=== PATIENT | female | born 1960 | race Caucasian/White ===

== ENCOUNTER → 2023-10-29 06:46 | Outpatient (REF) | payer BC, SELFPAY | LOC: HWRAD 06:46 | PROVIDERS: ATTENDING PHYSICIAN Internal Medicine Rheumatology; FAMILY PHYSICIAN Family Medicine | DX: M25.552 Pain in left hip (principal) | CPT/HCPCS: 73502 ==

== ENCOUNTER 2023-11-18 16:00 | Outpatient (RCR) | payer BC, SELFPAY | END 2023-11-18 23:59 | disposition home or self-care (01) | LOC: RPT 16:00 | PROVIDERS: ATTENDING PHYSICIAN Internal Medicine Rheumatology; FAMILY PHYSICIAN Family Medicine | DX: M25.552 Pain in left hip (principal); Z73.6 Limitation of activities due to disability | CPT/HCPCS: 97010; 97110; 97163 ==

== ENCOUNTER → 2023-11-23 06:45 | Outpatient (REF) | payer BC, SELFPAY ==
[2023-11-23 09:29] LABS: ALT (SGPT) 31 U/L (0-35); AST (SGOT) 27 U/L (14-36); Albumin 4.4 g/dl (3.5-5.0); Alkaline Phosphatase 131 U/L (38-126); Blood Urea Nitrogen 17 mg/dl (7-17); Calcium 9.7 mg/dl (8.4-10.2); Carbon Dioxide 25 mmol/L (22-30); Chloride 106 mmol/L (98-107); Glucose 142 mg/dl (70-99); HDL Cholesterol 44 mg/dl; Iron 117 ug/dl (37-170); LDL Cholesterol, Calculated 83 mg/dl; Potassium 4.1 mmol/L (3.5-5.1); Sodium 139 mmol/L (135-145); Total Bilirubin 0.8 mg/dl (0.2-1.3); Total Cholesterol 179 mg/dl (50-199); Triglyceride 261 mg/dl (10-149); Very Low Density Lipoprotein 52 mg/dl (0-30); eGFR > 60.00
[2023-11-23 09:38] LABS: Percent Saturation 38 % (20-50); Total Iron Binding Capacity 307 ug/dl (265-497)
[2023-11-23 09:45] LABS: Vitamin D, 25-OH*** 40.4 ng/mL (30-80)
[2023-11-23 09:59] LABS: TSH Reflex To Free T4 1.53 uIU/ml (0.47-4.68)
[2023-11-23 11:52] LABS: Glycohemoglobin (HgbA1c) 6.2 % (4.0-5.6)
== END ==
LOC: HWLAB 06:45
PROVIDERS: ATTENDING PHYSICIAN Internal Medicine Endocrinology, Diabetes & Metabolism; FAMILY PHYSICIAN Nurse Practitioner Adult Health
DX: L65.9 Nonscarring hair loss, unspecified (principal); E78.5 Hyperlipidemia, unspecified; E55.9 Vitamin D deficiency, unspecified; E66.9 Obesity, unspecified; E11.9 Type 2 diabetes mellitus without complications; Z79.4 Long term (current) use of insulin; E78.2 Mixed hyperlipidemia
CPT/HCPCS: 36415; 80053; 80061; 82306; 82728; 83036; 83540; 83550; 84443

== ENCOUNTER → 2023-11-27 06:21 | Outpatient (REF) | payer BC, SELFPAY | LOC: MRI 3T 06:21 | PROVIDERS: ATTENDING PHYSICIAN Orthopaedic Surgery; FAMILY PHYSICIAN Family Medicine; REFERRING PHYSICIAN Internal Medicine Rheumatology | DX: M25.552 Pain in left hip (principal); M54.16 Radiculopathy, lumbar region | CPT/HCPCS: 72148 ==

== ENCOUNTER 2023-11-29 06:17 | Day surgery (SDC) | payer BC, SELFPAY ==
[2023-11-29 08:45] VITALS: BMI 28.4
[2023-11-29 08:55] VITALS: BP 115/75
[2023-11-29 09:08] VITALS: BMI 28.4
[2023-11-29] MEDS: ALCAINE 0.5% EYE DROPS 2 DROP OPHTH (09:10)
[2023-11-29] MEDS: PRED FORTE 1% EYE DROPS 1 DROP OPHTH (09:12)
[2023-11-29] MEDS: POLYTRIM OPHTHALMIC SOLUTION 1 DROP OPHTH (09:13)
[2023-11-29] MEDS: NEO-SYNEPHRINE 2.5% OPH SOL. 1 DROP OPHTH (09:14)
[2023-11-29] MEDS: MYDRIACYL 1 DROP OPHTH (09:15)
[2023-11-29] MEDS: CYCLOGYL 1% EYE DROPS 1 DROP OPHTH (09:15)
[2023-11-29] MEDS: ACUVAIL 1 DROPS OPHTH (09:16)
[2023-11-29] MEDS: NORMOSOL-R 1000 IV (09:20)
[2023-11-29 09:24] LABS: Glucose - Point of Care 129 mg/dl (70-99)
[2023-11-29] MEDS: AKTEN OPHTHALMIC GEL 1 ML OPHTH (10:30)
[2023-11-29 11:20] VITALS: BP 102/70
--- NOTE | 2023-11-29 12:11 | PTCARENOTE ---
See incident report. Patient stated after arriving back to [facility] that Dr. Vann stated to her 'Their was an issue with the lens and that their was something on it and that she may have to come back and have it replaced if their is an issue with it.'
Patient was upset and speaking to her at the bedside about situation. Incident report filled out.
== END 2023-11-29 12:05 | disposition home or self-care (01) ==
LOC: SDS 06:17
PROVIDERS: ATTENDING PHYSICIAN Ophthalmology
DX: H25.811 Combined forms of age-related cataract, right eye (principal)
CPT/HCPCS: 66984; 82962

== ENCOUNTER 2023-12-09 16:17 | Outpatient (RCR) | payer BC, SELFPAY | END 2023-12-09 23:59 | disposition home or self-care (01) | LOC: RPT 16:17 | PROVIDERS: ATTENDING PHYSICIAN Internal Medicine Rheumatology; FAMILY PHYSICIAN Family Medicine | DX: M25.552 Pain in left hip (principal); Z73.6 Limitation of activities due to disability; R26.2 Difficulty in walking, not elsewhere classified; M62.81 Muscle weakness (generalized); R26.89 Other abnormalities of gait and mobility; M45.9 Ankylosing spondylitis of unspecified sites in spine | CPT/HCPCS: 97010; 97110; 97112 ==

== ENCOUNTER 2023-12-13 06:37 | Day surgery (SDC) | payer BC, SELFPAY ==
[2023-12-13] MEDS: ALCAINE 0.5% EYE DROPS 2 DROP OPHTH (08:31)
[2023-12-13] MEDS: PRED FORTE 1% EYE DROPS 1 DROP OPHTH (08:32)
[2023-12-13] MEDS: MYDRIACYL 1 DROP OPHTH (08:32)
[2023-12-13] MEDS: POLYTRIM OPHTHALMIC SOLUTION 1 DROP OPHTH (08:33)
[2023-12-13] MEDS: CYCLOGYL 1% EYE DROPS 1 DROP OPHTH (08:34)
[2023-12-13] MEDS: NEO-SYNEPHRINE 2.5% OPH SOL. 1 DROP OPHTH (08:34)
[2023-12-13] MEDS: ACUVAIL 3 DROPS OPHTH (08:35)
[2023-12-13] MEDS: AKTEN OPHTHALMIC GEL 1 ML OPHTH (08:35)
[2023-12-13 08:36] VITALS: BMI 28.4
[2023-12-13] MEDS: NORMOSOL-R 1000 IV (08:36)
[2023-12-13 08:37] VITALS: BMI 28.4
[2023-12-13 08:38] VITALS: BP 110/74
[2023-12-13 08:50] LABS: Glucose - Point of Care 106 mg/dl (70-99)
[2023-12-13 10:00] VITALS: BP 101/75
[2023-12-13 10:05] LABS: Glucose - Point of Care 106 mg/dl (70-99)
[2023-12-13 10:15] VITALS: BP 101/68
[2023-12-13 10:30] VITALS: BP 95/65
[2023-12-13 10:40] VITALS: BP 100/67
== END 2023-12-13 10:50 | disposition home or self-care (01) ==
LOC: SDS 06:37
PROVIDERS: ATTENDING PHYSICIAN Ophthalmology
DX: T85.29XA Other mechanical complication of intraocular lens, initial encounter (principal); Y83.1 Surgical operation with implant of artificial internal device as the cause of abnormal reaction of the patient, or of later complication, without mention of misadventure at the time of the procedure; H53.8 Other visual disturbances
CPT/HCPCS: 66986; 82962

== ENCOUNTER 2023-12-23 16:07 | Outpatient (RCR) | payer BC, SELFPAY | END 2023-12-24 09:01 | disposition home or self-care (01) | LOC: RPT 16:07 | PROVIDERS: ATTENDING PHYSICIAN Internal Medicine Rheumatology; FAMILY PHYSICIAN Family Medicine | DX: M25.552 Pain in left hip (principal); Z73.6 Limitation of activities due to disability; R26.2 Difficulty in walking, not elsewhere classified; M62.81 Muscle weakness (generalized) | CPT/HCPCS: 97010; 97110; 97112 ==

== ENCOUNTER → 2024-05-04 06:27 | Outpatient (REF) | payer BC, SELFPAY ==
[2024-05-04 10:12] LABS: ALT (SGPT) 33 U/L (0-35); AST (SGOT) 28 U/L (14-36); Albumin 4.1 g/dl (3.5-5.0); Alkaline Phosphatase 153 U/L (38-126); Blood Urea Nitrogen 15 mg/dl (7-17); Calcium 9.8 mg/dl (8.4-10.2); Carbon Dioxide 26 mmol/L (22-30); Chloride 106 mmol/L (98-107); Glucose 140 mg/dl (70-99); HDL Cholesterol 44 mg/dl; LDL Cholesterol, Calculated 106 mg/dl; Sodium 139 mmol/L (135-145); Total Bilirubin 0.8 mg/dl (0.2-1.3); Total Cholesterol 194 mg/dl (50-199); Total Protein 6.6 g/dl (6.3-8.2); Triglyceride 222 mg/dl (10-149); Very Low Density Lipoprotein 44 mg/dl (0-30); eGFR > 60.00
[2024-05-04 11:30] LABS: % Eosinophils 1.8 % (0-6); % Immature Granulocytes 0.2 % (0-0.5); % Lymphocytes 39.2 % (20.5-51.1); % Monocytes 9.8 % (1.7-9.3); Absolute Basophils 0.1 10^3/uL (0-0.2); Absolute Eosinophils 0.1 10^3/uL (0-0.7); Absolute Lymphocytes 2.4 10^3/uL (1.2-3.4); Absolute Monocytes 0.6 10^3/uL (0.1-0.6); Hematocrit 41.7 % (37.0-47.0); Hemoglobin 14.6 g/dL (12.0-16.0); Mean Corpuscular Hgb 31.8 pg (27.0-31.0); Mean Corpuscular Volume 90.8 fL (81.0-99.0); Mean Platelet Volume 9.1 fL (7.4-10.4); Nucleated Red Blood Cells % 0 %; Platelet Count 280 10^3/uL (130-400); Red Blood Cell Count 4.59 10^6/uL (4.20-5.40); Red Cell Dist. Width 12.8 % (11.5-14.5); White Blood Cell Count 6.2 10^3/uL (4.8-10.8)
[2024-05-04 12:23] LABS: Glycohemoglobin (HgbA1c) 6.5 % (4.0-5.6)
== END ==
LOC: HWLAB 06:27
PROVIDERS: ATTENDING PHYSICIAN Family Medicine
DX: E11.69 Type 2 diabetes mellitus with other specified complication (principal); E78.2 Mixed hyperlipidemia; M45.7 Ankylosing spondylitis of lumbosacral region
CPT/HCPCS: 36415; 80053; 80061; 83036; 85025

== ENCOUNTER → 2024-05-05 16:05 | Outpatient (REF) | payer BC, SELFPAY | LOC: MRI 3T 16:05 | PROVIDERS: ATTENDING PHYSICIAN Orthopaedic Surgery; FAMILY PHYSICIAN Family Medicine | DX: M25.552 Pain in left hip (principal) | CPT/HCPCS: 73721 ==

== ENCOUNTER → 2024-05-11 06:32 | Outpatient (REF) | payer BC, SELFPAY ==
[2024-05-11 10:32] LABS: TSH Reflex To Free T4 1.97 uIU/ml (0.47-4.68)
== END ==
LOC: HWLAB 06:32
PROVIDERS: ATTENDING PHYSICIAN Family Medicine
DX: Z13.29 Encounter for screening for other suspected endocrine disorder (principal); R19.7 Diarrhea, unspecified
CPT/HCPCS: 36415; 83993; 84443; 87045; 87046; 87324; 87427; 87449; 89055

== ENCOUNTER → 2024-08-15 06:12 | Outpatient (REF) | payer BC, SELFPAY | LOC: HWRAD 06:12 | PROVIDERS: ATTENDING PHYSICIAN Internal Medicine Gastroenterology; FAMILY PHYSICIAN Family Medicine | DX: R19.4 Change in bowel habit (principal); R74.8 Abnormal levels of other serum enzymes | CPT/HCPCS: 74018; 76700 ==

== ENCOUNTER → 2024-08-30 06:27 | Outpatient (REF) | payer BC, SELFPAY ==
[2024-08-30 10:53] LABS: Alkaline Phosphatase 123 U/L (38-126); GGTP 35 U/L (12-43)
[2024-08-30 15:20] LABS: tTG IgG Antibody 11.9 EU/ml (0-19)
[2024-08-31 05:30] LABS: IgA 264 mg/dl (70-400)
[2024-09-01 14:01] LABS: Alk Phos Bone Specific Results 16.8 ug/L
[2024-09-01 23:47] LABS: Endomysial IgA Antibody Titer <1:10 (<1:10)
== END ==
LOC: HWLAB 06:27
PROVIDERS: ATTENDING PHYSICIAN Internal Medicine Gastroenterology; FAMILY PHYSICIAN Family Medicine
DX: R74.8 Abnormal levels of other serum enzymes (principal); R19.4 Change in bowel habit
CPT/HCPCS: 36415; 82784; 82977; 83516; 83915; 84075; 86231

== ENCOUNTER → 2024-08-31 06:36 | Outpatient (REF) | payer BC, SELFPAY ==
[2024-09-02 22:51] LABS: Fat, Fecal - Neutral Normal (Normal); Fat, Fecal - Split Normal (Normal)
== END ==
LOC: HWLAB 06:36
PROVIDERS: ATTENDING PHYSICIAN Internal Medicine Gastroenterology; FAMILY PHYSICIAN Family Medicine
DX: R19.4 Change in bowel habit (principal)
CPT/HCPCS: 82653; 82705; 83993; 89055

== ENCOUNTER → 2024-09-22 06:31 | Outpatient (REF) | payer BC, SELFPAY ==
[2024-09-22 09:33] LABS: % Basophils 0.6 % (0-2); % Eosinophils 0.8 % (0-6); % Immature Granulocytes 0.3 % (0-0.5); % Lymphocytes 27.4 % (20.5-51.1); % Monocytes 10.7 % (1.7-9.3); % Neutrophils 60.2 % (42.2-75.2); Absolute Basophils 0.1 10^3/uL (0-0.2); Absolute Eosinophils 0.1 10^3/uL (0-0.7); Absolute Lymphocytes 2.1 10^3/uL (1.2-3.4); Absolute Monocytes 0.8 10^3/uL (0.1-0.6); Absolute Neutrophils 4.7 10^3/uL (1.4-6.5); Hematocrit 42.9 % (37.0-47.0); Hemoglobin 14.3 g/dL (12.0-16.0); Mean Corp Hgb Conc. 33.3 g/dL (33.0-37.0); Mean Corpuscular Hgb 31.4 pg (27.0-31.0); Mean Corpuscular Volume 94.1 fL (81.0-99.0); Mean Platelet Volume 8.8 fL (7.4-10.4); Nucleated Red Blood Cells % 0 %; Platelet Count 255 10^3/uL (130-400); Red Blood Cell Count 4.56 10^6/uL (4.20-5.40); White Blood Cell Count 7.8 10^3/uL (4.8-10.8)
[2024-09-22 11:05] LABS: ALT (SGPT) 30 U/L (0-35); AST (SGOT) 24 U/L (14-36); Albumin 4.3 g/dl (3.5-5.0); Alkaline Phosphatase 189 U/L (38-126); Blood Urea Nitrogen 11 mg/dl (7-17); Calcium 9.4 mg/dl (8.4-10.2); Carbon Dioxide 23 mmol/L (22-30); Chloride 105 mmol/L (98-107); Glucose 145 mg/dl (70-99); HDL Cholesterol 45 mg/dl; LDL Cholesterol, Calculated 82 mg/dl; Potassium 4.3 mmol/L (3.5-5.1); Sodium 139 mmol/L (135-145); Total Bilirubin 0.6 mg/dl (0.2-1.3); Total Cholesterol 165 mg/dl (50-199); Total Protein 6.7 g/dl (6.3-8.2); Triglyceride 190 mg/dl (10-149); Very Low Density Lipoprotein 38 mg/dl (0-30); eGFR > 60.00
[2024-09-22 11:32] LABS: Glycohemoglobin (HgbA1c) 5.9 % (4.0-5.6)
[2024-09-22 11:37] LABS: TSH Reflex To Free T4 2.71 uIU/ml (0.47-4.68)
[2024-09-22 11:49] LABS: Erythrocyte Sed Rate 10 mm/hour (0-20)
== END ==
LOC: HWLAB 06:31
PROVIDERS: ATTENDING PHYSICIAN Internal Medicine Endocrinology, Diabetes & Metabolism; FAMILY PHYSICIAN Family Medicine; REFERRING PHYSICIAN Internal Medicine Rheumatology
DX: M06.4 Inflammatory polyarthropathy (principal); E78.5 Hyperlipidemia, unspecified; E11.69 Type 2 diabetes mellitus with other specified complication; E78.2 Mixed hyperlipidemia; M45.7 Ankylosing spondylitis of lumbosacral region
CPT/HCPCS: 36415; 80053; 80061; 83036; 84443; 85025; 85652; 86140

== ENCOUNTER → 2024-12-11 17:46 | Outpatient (REF) | payer BC, SELFPAY | LOC: WDC 17:46 | PROVIDERS: ATTENDING PHYSICIAN Obstetrics & Gynecology Gynecology | DX: Z12.31 Encounter for screening mammogram for malignant neoplasm of breast (principal) | CPT/HCPCS: 77063; 77067 ==

== ENCOUNTER → 2024-12-29 08:01 | Outpatient (REF) | payer BC, SELFPAY ==
[2024-12-29 13:07] LABS: ALT (SGPT) 34 U/L (0-35); AST (SGOT) 29 U/L (14-36); Albumin 4.8 g/dl (3.5-5.0); Alkaline Phosphatase 167 U/L (38-126); Blood Urea Nitrogen 12 mg/dl (7-17); Calcium 9.9 mg/dl (8.4-10.2); Carbon Dioxide 22 mmol/L (22-30); Chloride 109 mmol/L (98-107); Glucose 145 mg/dl (70-99); HDL Cholesterol 52 mg/dl; LDL Cholesterol, Calculated 93 mg/dl; Potassium 4.6 mmol/L (3.5-5.1); Sodium 143 mmol/L (135-145); Total Bilirubin 0.8 mg/dl (0.2-1.3); Total Cholesterol 177 mg/dl (50-199); Total Protein 7.3 g/dl (6.3-8.2); Triglyceride 162 mg/dl (10-149); Very Low Density Lipoprotein 32 mg/dl (0-30); eGFR > 60.00
[2024-12-29 14:19] LABS: Glycohemoglobin (HgbA1c) 5.9 % (4.0-5.6)
== END ==
LOC: HWRAD 08:01
PROVIDERS: ATTENDING PHYSICIAN Psychiatry & Neurology Neurology; FAMILY PHYSICIAN Family Medicine; REFERRING PHYSICIAN Internal Medicine Endocrinology, Diabetes & Metabolism
DX: R10.30 Lower abdominal pain, unspecified (principal); E04.2 Nontoxic multinodular goiter; E78.5 Hyperlipidemia, unspecified
CPT/HCPCS: 36415; 76882; 80053; 80061; 83036

== ENCOUNTER 2025-02-23 08:53 | Emergency (ER) | payer BC, SELFPAY ==
[2025-02-23 08:55] VITALS: BP 142/78
--- NOTE | 2025-02-23 09:32 | ED.GENMED ---
History of Present Illness
General
Chief Complaint: Musculo-Skeletal Complaint
Source: patient
Exam Limitations: none
Time Seen by Provider: 02/23/25 09:16
History of Present Illness
History of Present Illness:
See MDM
Past History
Past History
ED Past Medical History: Other (Ankylosing spondylitis)
ED Past Surgical History: None
Social History
Tobacco: Non-smoker
Alcohol: None
Phy Exam
Physical Exam
Physical Exam:
See MDM
Course
Orders/Labs/Results
Orders:
Orders
02/23/25 09:30
CT Abd/pelvis W Iv Cont Urgent
Comment:
Reason For Exam: R groin pain
02/23/25 09:38
Complete Blood Count/With Diff Urgent
Comprehensive Metabolic Panel Urgent
02/23/25 10:48
0.9% Sodium Chloride 1000 ml [Nss] 1,000 ml IV BOLUS
Abnormal Lab Results
02/23/25
09:38
MCH 31.9 H pg
(27.0-31.0)
Chloride 111 H mmol/L
(98-107)
Creatinine 0.5 L mg/dL
(0.6-1.0)
Glucose 122 H mg/dl
(70-99)
ALT 44 H U/L
(0-35)
Alkaline Phosphatase 130 H U/L
(38-126)
02/23/25 09:38
02/23/25 09:38
Vital Signs
Initial and Last Documented VS:
Initial Vital Signs
Temp Pulse Resp BP Pulse Ox
98.0 F 110 16 142/78 98
02/23/25 08:55 02/23/25 08:55 02/23/25 08:55 02/23/25 08:55 02/23/25 08:55
Last Documented Vital Signs
Temp Pulse Resp BP Pulse Ox
98.0 F 110 16 142/78 98
02/23/25 08:55 02/23/25 08:55 02/23/25 08:55 02/23/25 08:55 02/23/25 08:55
MDM/Problems Addressed
Differential Diagnosis Includes:
HPI and MDM Narrative:
64-year-old female presenting with worsening right groin pain. Patient has been dealing with back and groin pain for several months. He has received outpatient lumbar MRIs which do confirm the lower lumbar issues. She has since followed up with
pain management. She is on Vicodin and tramadol and symptoms are not improving. Pain management set her in for further imaging to evaluate any intra-abdominal process. Patient points to her right lower quadrant and her inguinal canal. Symptoms
are made worse when she hip flexes. On my exam, I cannot necessarily reproduce the symptoms. She has a negative straight leg raise.
She has no tenderness to palpation of the quadricep. No pain with involvement of the abductor muscle. The leg is otherwise neurovascularly intact.
However, patient does appear to be extremely comfortable when she sits upright. She localizes the pain from her right inguinal canal going straight down her thigh to her patella. This is not necessarily follow a specific dermatome.
I do question whether this could be related to her ankylosing spondylitis. Regardless, will obtain CT abdomen/pelvis looking for any other intra-abdominal processes
Physical exam
General: Well appearing and non-toxic
HEENT: protecting airway
Neck: appears supple
CV: No evidence of cyanosis
Resp: No accessory muscle use
Abd: Non-distended. Soft and nontender
Extremities: No deformities. No palpable mass to right inguinal canal. Distal extremity neurovascular intact
Neuro: alert
Psych: Normal affect
Skin: Intact
Problems Addressed including Acute and Chronic Conditions affecting care:
1. Abdominal and groin pain
Acuity: acute
Prognosis: stable
Details: Unsure if this is related to ankylosing spondylitis. It is worse with spine flexion. Will obtain CT to look for any other pathology
Updates
On reassessment, patient remains well-appearing and nontoxic. While laying flat, she has no pain. I did have the patient hip flex. When she is able to grab her right thigh and bring it to her chest, she has no pain. However, when she goes into
the same position while leaning her back forward, the pain is experienced. This raises suspicion for this being back related rather than pelvic and thigh related
CT negative for acute pathology. She was given a printout of the report. Discussed follow-up with spinal surgery at this point.
Differential Diagnosis (but not limited to): Ankylosing spondylitis, femoral hernia, appendicitis, quadricep tear
Testing considered: Urinalysis but she denies symptoms
Drug therapy (if applicable): OTC meds, please see d/c instruction regarding Rx drugs
Amount and/or Complexity of Data Reviewed
Clinical info obtained from: Patient
External data reviewed: I evaluated recent MRI reports at bedside
Labs I independently reviewed (but not limited to): White blood cell count normal
Radiology: The CT scan was personally and independently reviewed. In addition, official CT report reviewed.
Pulse Ox: not hypoxic
EKG independently reviewed: N/A
Market Researcher: N/A
Critical Care: N/A
Risk of Complication:
Social Determinants of health: Good social support
Discussed with other providers: N/A
Escalation of Care includes Admit/Obs: After being observed in the Emergency Department, pt stable for discharge.
Occasional wrong word or 'sound a like' substitutions may have occurred due to the inherent limitations of voice recognition software. Read the chart carefully and recognize, using context, where substitutions have occurred.
*Critical Care Note
Total Time (30-74mins, 75-104mins- exclusive of procedures): Not Applicable
ED Attending Note
-
Portions of this chart may have been created with voice recognition software.� Occasional wrong word or��sound alike� substitutions may have occurred due to the inherent limitations of voice recognition software.
Discharge Plan
Departure
Patient Disposition: Home (Routine Discharge)
Date of Disposition: 02/23/25
Time of Disposition: 12:55
Patient with high blood pressure during this ER visit?: No
Discharge Problem:
Lumbar radiculopathy
Prescriptions:
New
prednisone 10 mg tablet
See Rx Instructions .ROUTE .COMPLEX Qty: 45 0RF
Rx Instructions:
5 tabs day 1-3, 4 tabs day 4-6, 3 tabs day 7-9, 2 tabs day 10-12, 1 tab day 13-15
tramadol 100 mg tablet
100 mg PO BID PRN (Reason: Pain) 7 Days Qty: 14 0RF
No Action
atorvastatin 10 MG tablet
10 mg PO DAILY@1700
colestipol [Colestid] 1 GM tablet
1 g PO PRN PRN (Reason: diarrhea)
Eliquis 2.5 MG tablet
2.5 mg PO BID
Jardiance 10 MG tablet
10 mg PO DAILY
ascorbic acid (vitamin C) [Vitamin C] 500 MG tablet
500 mg PO DAILY
modafinil 100 mg Tablet
100 mg PO BID
duloxetine 20 mg Capsule,Delayed Release(Dr/Ec)
20 mg PO BID
Humira Pen 40 mg/0.8 mL Pen Injector Kit
40 mg SC .EVERY 2 WEEKS
insulin degludec [Tresiba U-100 Insulin] 100 unit/mL Solution
12 unit SC HS
Patient Comments:
pt took 10 Units.
Mounjaro 7.5 mg/0.5 mL Pen Injector
7.5 mg SC QWEEK
multivitamin Tablet
1 tab PO DAILY
cholecalciferol (vitamin D3) [Vitamin D3] 125 mcg (5,000 unit) Tablet
125 mcg PO MOTUWETHFR
cholecalciferol (vitamin D3) [Vitamin D3] 125 mcg (5,000 unit) Tablet
250 mcg PO SUSA
Fish Oil
1 cap PO BID
Referrals:
Gurjit Lepe Jr., DO [Family Provider, Internal Medicine]
Rojas Gentile MD [Active, Orthopedics]
Activity Restrictions/Additional Instructions:
Please return for any worsening symptoms.
You may return at any time if you have further concerns.
Please follow up with your doctor at the first available appointment, preferably this week.
I am refilling your tramadol prescription. I wrote for 100 mg tablets. Prior records indicate that you are taking 50 mg tablets. Make sure you are cutting the 100 mg tablets.
Interventions
Interventions:
*Risk Screen - Suicide Last Done: 02/23/25 08:55
*General Assessment Last Done: 02/23/25 09:25
*Neglect/Abuse Screening Last Done: 02/23/25 08:55
*ED- Fall Risk Assessment Last Done: 02/23/25 09:25
*ED COVID-19 Vaccine History Last Done: 02/23/25 09:25
ED-Musculoskeletal Assessment Last Done: 02/23/25 09:24
Discharge Date and Time
Print Language: ESTONIAN
[2025-02-23 09:57] LABS: % Basophils 0.6 % (0-2); % Eosinophils 0.3 % (0-6); % Immature Granulocytes 0.3 % (0-0.5); % Lymphocytes 29.3 % (20.5-51.1); % Monocytes 7.4 % (1.7-9.3); % Neutrophils 62.1 % (42.2-75.2); Absolute Lymphocytes 2.1 10^3/uL (1.2-3.4); Absolute Monocytes 0.5 10^3/uL (0.1-0.6); Absolute Neutrophils 4.4 10^3/uL (1.4-6.5); Hematocrit 41.8 % (37.0-47.0); Hemoglobin 14.6 g/dL (12.0-16.0); Mean Corp Hgb Conc. 34.9 g/dL (33.0-37.0); Mean Corpuscular Hgb 31.9 pg (27.0-31.0); Mean Corpuscular Volume 91.3 fL (81.0-99.0); Mean Platelet Volume 8.5 fL (7.4-10.4); Nucleated Red Blood Cells % 0 %; Platelet Count 237 10^3/uL (130-400); Red Blood Cell Count 4.58 10^6/uL (4.20-5.40); Red Cell Dist. Width 12.8 % (11.5-14.5)
[2025-02-23 10:10] LABS: ALT (SGPT) 44 U/L (0-35); AST (SGOT) 24 U/L (14-36); Albumin 4.2 g/dl (3.5-5.0); Alkaline Phosphatase 130 U/L (38-126); Blood Urea Nitrogen 16 mg/dl (7-17); Calcium 9.4 mg/dl (8.4-10.2); Carbon Dioxide 22 mmol/L (22-30); Chloride 111 mmol/L (98-107); Glucose 122 mg/dl (70-99); Potassium 3.7 mmol/L (3.5-5.1); Sodium 141 mmol/L (135-145); Total Bilirubin 0.7 mg/dl (0.2-1.3); Total Protein 6.6 g/dl (6.3-8.2); eGFR > 60.00
[2025-02-23] MEDS: NSS 1000 IV (11:17)
[2025-02-23 13:11] VITALS: BP 112/68
== END 2025-02-23 13:18 | disposition home or self-care (01) ==
LOC: EMR 08:53
PROVIDERS: EMERGENCY PHYSICIAN Student in an Organized Health Care Education/Training Program; FAMILY PHYSICIAN Family Medicine
DX: M54.16 Radiculopathy, lumbar region (principal); R10.31 Right lower quadrant pain
CPT/HCPCS: 99284; 96360; 74177; 80053; 85025; Q9967

== ENCOUNTER 2025-04-24 05:13 | Inpatient (IN) | payer BC, SELFPAY ==
[2025-04-23 22:56] VITALS: BP 115/72
[2025-04-23 23:25] LABS: Hematocrit 40.8 % (37.0-47.0); Hemoglobin 14.1 g/dL (12.0-16.0); Mean Corp Hgb Conc. 34.6 g/dL (33.0-37.0); Mean Corpuscular Volume 89.9 fL (81.0-99.0); Nucleated Red Blood Cells % 0 %; Platelet Count 234 10^3/uL (130-400); Red Cell Dist. Width 12.4 % (11.5-14.5)
[2025-04-23 23:35] LABS: Urine Character Clear (Clear)
[2025-04-23 23:41] LABS: ALT (SGPT) 39 U/L (0-35); AST (SGOT) 27 U/L (14-36); Albumin 4.4 g/dl (3.5-5.0); Alkaline Phosphatase 188 U/L (38-126); Blood Urea Nitrogen 12 mg/dl (7-17); Calcium 9.8 mg/dl (8.4-10.2); Carbon Dioxide 24 mmol/L (22-30); Chloride 105 mmol/L (98-107); Glucose 160 mg/dl (70-99); Potassium 4.3 mmol/L (3.5-5.1); Sodium 135 mmol/L (135-145); Total Protein 7.0 g/dl (6.3-8.2); eGFR > 60.00
[2025-04-24] VITALS (22 sets, daily range): BP systolic 82–117; BP diastolic 44–71; BMI 25.6
--- NOTE | 2025-04-24 02:17 | ED.GENMED ---
History of Present Illness
<Maritza Payne PA-C - Last Filed: 04/24/25 07:45>
General
Chief Complaint: Post Operative Problem(s)
Source: patient
Exam Limitations: none
Time Seen by Provider: 04/24/25 01:47
Nursing documentation reviewed up to this point in time: agreed with
History of Present Illness
History of Present Illness:
Note:
CHIEF COMPLAINT(S)
Fever, neck pain, drainage, and pain at the site of a surgical incision following laminectomy.
HISTORY OF PRESENT ILLNESS
The patient is a 64-year-old female with a recent history of laminectomy performed on March 19 at [facility]. She began experiencing symptoms last Wednesday, with the onset of drainage from an incision site. She initially contacted the surgeons
office and was advised to apply a bandage. However, the condition worsened over the weekend with the development of fever starting on Wednesday and becoming severe by today. The patient reported increasing drainage and pain, with an additional
incision site opening and showing signs of infection. The fever and pain, initially absent, became significant today and were accompanied by back pain, which previously had been well-controlled post-operatively. The patient additionally reports a
headache and neck pain, and her current back pain is described as more bruising than bone-related.
She has had no episodes of vomiting. The patient reported taking Tylenol earlier today for fever management. Her blood pressure was noted to be low at 87/49, though she reports a typical baseline blood pressure of 105/70 to 110/75.
PAST MEDICAL AND SURIGICAL HISTORY
Recent laminectomy performed on March 19.
ADDITIONAL HISTORY OBTAINED FROM SOURCES OTHER THAN THE PATIENT
Per family member, after the first incision opened, the patient remained functional, with no noted pain and was able to engage in normal activities. However, after the second incision opened, there was a notable increase in pain and the inability to
touch the back due to sensitivity.
PHYSICAL EXAM
Nursing notes reviewed and vital signs reviewed.
General: Patient is well appearing and in no acute distress; non-toxic
Skin: Warm and dry, 2 incisional sites noted on lumbar spine with surrounding erythema and purulent drainage
Head: Normocephalic, atraumatic
Eyes: Sclera non-icteric. EOMs intact.
Cardiac: Regular rate and rhythm, no murmurs
Peripheral Vascular: No lower extremity swelling or edema.
Pulm: Normal respiratory effort, no wheezes, rales, rhonchi
Abdomen: No abdominal tenderness to palpation
Musculoskeletal: Midline spinal tenderness noted.
Neuro: CN II-XII intact, no focal neurologic deficits. Neck is supple.
Psychiatric: Appropriate mood and affect.
PLAN
- Administer intravenous fluids to address hypotension and dehydration.
- Administer Tylenol for fever control.
- Obtain imaging, considering CT versus MRI, to evaluate for possible abscess.
- Monitor and assess for signs of cellulitis or deeper infection such as an abscess.
DIFFERENTIAL DIAGNOSIS
The Differential Diagnosis includes, in no particular order and is not limited to:
1. Superficial cellulitis
2. Surgical site infection
3. Abscess formation
4. Meningitis
5. Sepsis
6. Deep vein infection
7. Hematoma at the surgical site
8. Post-surgical edema
9. Drug reaction (post-operative medication)
10. Hypotension-related dizziness
Disposition:
SUMMARY OF ENCOUNTER
The patient, a 64-year-old female, presented to the emergency department with significant drainage from surgical wounds, fever, and back pain following a recent laminectomy. She has a past medical history including deep vein thrombosis (on
apixaban), diabetes, and spondylitis. There was a concern for wound infection given the drainage and systemic symptoms. The CT scan showed subcutaneous edema and inflammatory changes, raising concerns about wound dehiscence or deeper spread of
infection. Intravenous antibiotics were initiated along with supportive treatments such as Tylenol for fever and intravenous fluids for hydration.
DISPOSITION
Admit.
MANAGEMENT OF THE PATIENTS CARE WAS DISCUSSED WITH
Spoke to Dr. Gentile, the patients spinal surgeon, regarding the findings and management via [employer].
PLAN
The plan is to admit the patient for further management including a surgical washout by Dr. Gentile for the wound dehiscence. Continue intravenous antibiotics and monitor for signs of systemic infection.
INDEPENDENT REVIEW OF LABS AND INTERPRETATION OF TESTS
My independent CT interpretation revealed subcutaneous edema and inflammatory changes.
MEDICAL DECISION MAKING
- Number and Complexity of Problems Addressed:
Chronic conditions affecting care: deep vein thrombosis, diabetes, spondylitis.
Differential diagnosis includes superficial cellulitis, surgical site infection, abscess formation, meningitis, sepsis, deep vein infection, hematoma at the surgical site, post-surgical edema, drug reaction, and hypotension-related dizziness.
- Data:
Category 1
The following tests were considered and ordered: CT scan which revealed subcutaneous edema and inflammatory changes.
Category 2
Clinical information was obtained from an independent historian. Spoke to Dr. Oakes, the patients spinal surgeon.
Category 3
Discussion of management with Dr. Oakes, the spinal surgeon, regarding the surgical washout plan.
DIAGNOSIS
- Wound dehiscence following laminectomy with underlying subcutaneous edema and inflammatory changes (ICD-10-CM: T81.31XA)
- Surgical site infection (ICD-10-CM: T81.4XXA)
- Fever (ICD-10-CM: R50.9)
Past History
<Maritza Payne PA-C - Last Filed: 04/24/25 07:45>
Past History
ED Past Medical History: Other (Ankylosing spondylitis)
ED Past Surgical History: None
Social History
Tobacco: Non-smoker
Alcohol: None
Phy Exam
<Maritza Payne PA-C - Last Filed: 04/24/25 07:45>
Physical Exam
Physical Exam:
see hpi
Course
<Maritza Payne PA-C - Last Filed: 04/24/25 07:45>
Orders/Labs/Results
Orders:
Orders
04/23/25 23:01
Electrocardiogram (*1) Urgent
Reason for Study: Other
Other Reason for Exam: Possible Sepsis
Cardiac Monitoring- Treatment ONCE
IV Insert/Care/Rem.- Treatment PRN
Straight cath- Treatment ONCE
O2 Therapy [RESP] Urgent
Titrate/Wean O2 to maintain O2 sat greater than (%): 93
Special Instructions: TO MAINTAIN CONTINUOUS O2 SATS > OR = 93%
Pulse Ox/cont/shift [RESP] Urgent
Quantity: 1
Special Instructions: CONTINUOUS
04/23/25 23:02
EKG- Treatment ONCE
04/23/25 23:15
Complete Blood Count/With Diff Urgent
Comprehensive Metabolic Panel Urgent
Lactic Acid Q4H
Comment: ON ICE, CANCEL 2ND ORDER IF FIRST LACTIC ACID LEVEL <2
Blood Culture Q20M
BRIE Source: Blood/Venous
Specimen Description:
Comment: Urgent from separate sites. If patient screens positive for possible sepsis
04/23/25 23:25
Urinalysis Reflex To Culture Urgent
Date Specimen was Collected: 04/23/25
Time Specimen was Collected: 23:02
04/23/25 23:50
Blood Culture Q20M
BRIE Source: Blood/Venous
Specimen Description:
Comment: Urgent from separate sites. If patient screens positive for possible sepsis
04/24/25 01:57
Acetaminophen [Tylenol] 1,000 mg .ROUTE .STK-MED ONE
Ketorolac [Toradol] 15 mg .ROUTE .STK-MED ONE
04/24/25 02:11
Acetaminophen 1000MG/100Ml [Ofirmev] 1,000 mg in 100 ml IV ONCE
Acetaminophen IV Indication:: Targeted Temp Management
Ondansetron Injectable [Zofran] 4 mg IV NOW STA
04/24/25 02:29
Piperacillin/Tazo 4.5 Gram [Zosyn] 4.5 gram in 100 ml IV NOW
04/24/25 02:40
Wound Culture [Wound/Abscess/Other Culture] Urgent
BRIE Source: Surgical Wound
Specimen Description:
Date Specimen was Collected: 04/24/25
Time Specimen was Collected: 02:38
Comment: left lumbar surgical wound
Wound Culture [Wound/Abscess/Other Culture] Urgent
BRIE Source: Surgical Wound
Specimen Description:
Date Specimen was Collected: 04/24/25
Time Specimen was Collected: 02:38
Comment: right lumbar incision
04/24/25 03:03
CT Lumbar Spine W/ Iv Contrast Urgent
Comment:
Reason For Exam: low back pain, s/p lamenectomy
04/24/25 03:16
Vancomycin [Vancocin] 2,000 mg 0.9% Sodium Chloride 500 ml [Nss] 500 ml IV NOW
04/24/25 05:01
Admit/Transfer Patient As Directed
Co-Sign Provider:
Level of Care: Inpatient admission
Assign to:: Medical/Surgical
Physician / Group: Barbara
Diagnosis: wound infection
Reason for Hospitalization: wound infection
Expected length of stay greater than two midnights?: Yes
ELOS- Estimated Length of Stay in days: 2
I certify the patient meets the requirements for IP care: Yes
PRN Pain Medication Management As Directed
May give lesser potent ordered pain med per pt: Yes
preference::
Protocol:: Medication orders for pain may be administered in a
manner that supports deferring to patient preference
when the pt is:
- Requesting an ordered lesser potent pain medication.
Least to most potent pain medications are defined
as: acetaminophen < NSAID < tramadol < opioids
(morphine, oxycodone, hydromorphone).
- Requesting a lesser dose of the same medication IF
ORDERED.
- Requesting a less intrusive route of administration
if both routes are prescribed by the provider (PO <
IV).
04/24/25 05:02
Code Status As Directed
Resuscitation Status: Full Code
04/24/25 Breakfast
NPO
Allow oral meds: No
Allow clear liquids: No
NPO with Ice Chips: No
Abnormal Lab Results
04/23/25 04/23/25
23:15 23:25
WBC 13.6 H 10^3/uL
(4.8-10.8)
MCH 31.1 H pg
(27.0-31.0)
Abs Immat Gran (auto) 0.1 H 10^3/uL
(0-0.05)
Absolute Neuts (auto) 9.9 H 10^3/uL
(1.4-6.5)
Absolute Monos (auto) 0.9 H 10^3/uL
(0.1-0.6)
Lymphocytes % 18.7 L %
(20.5-51.1)
Creatinine 0.5 L mg/dL
(0.6-1.0)
Glucose 160 H mg/dl
(70-99)
ALT 39 H U/L
(0-35)
Alkaline Phosphatase 188 H U/L
(38-126)
Urine Glucose 4+ A
(Negative)
04/23/25 23:15
04/23/25 23:15
Vital Signs
Initial and Last Documented VS:
Initial Vital Signs
Temp Pulse Resp BP Pulse Ox
99.2 F 109 20 115/72 97
04/23/25 22:56 04/23/25 22:56 04/23/25 22:56 04/23/25 22:56 04/23/25 22:56
Last Documented Vital Signs
Temp Pulse Resp BP Pulse Ox
98.6 F 99 25 98/71 96
04/24/25 06:00 04/24/25 07:00 04/24/25 07:00 04/24/25 07:00 04/24/25 07:00
<Peace Logan, DO - Last Filed: 04/24/25 04:34>
Orders/Labs/Results
Orders:
Orders
04/23/25 23:01
Electrocardiogram (*1) Urgent
Reason for Study: Other
Other Reason for Exam: Possible Sepsis
Cardiac Monitoring- Treatment ONCE
IV Insert/Care/Rem.- Treatment PRN
Straight cath- Treatment ONCE
O2 Therapy [RESP] Urgent
Titrate/Wean O2 to maintain O2 sat greater than (%): 93
Special Instructions: TO MAINTAIN CONTINUOUS O2 SATS > OR = 93%
Pulse Ox/cont/shift [RESP] Urgent
Quantity: 1
Special Instructions: CONTINUOUS
04/23/25 23:02
EKG- Treatment ONCE
04/23/25 23:15
Complete Blood Count/With Diff Urgent
Comprehensive Metabolic Panel Urgent
Lactic Acid Q4H
Comment: ON ICE, CANCEL 2ND ORDER IF FIRST LACTIC ACID LEVEL <2
Blood Culture Q20M
BRIE Source: Blood/Venous
Specimen Description:
Comment: Urgent from separate sites. If patient screens positive for possible sepsis
04/23/25 23:25
Urinalysis Reflex To Culture Urgent
Date Specimen was Collected: 04/23/25
Time Specimen was Collected: 23:02
04/23/25 23:50
Blood Culture Q20M
BRIE Source: Blood/Venous
Specimen Description:
Comment: Urgent from separate sites. If patient screens positive for possible sepsis
04/24/25 01:57
Acetaminophen [Tylenol] 1,000 mg .ROUTE .STK-MED ONE
Ketorolac [Toradol] 15 mg .ROUTE .STK-MED ONE
04/24/25 02:11
Acetaminophen 1000MG/100Ml [Ofirmev] 1,000 mg in 100 ml IV ONCE
Acetaminophen IV Indication:: Targeted Temp Management
Ondansetron Injectable [Zofran] 4 mg IV NOW STA
04/24/25 02:29
Piperacillin/Tazo 4.5 Gram [Zosyn] 4.5 gram in 100 ml IV NOW
04/24/25 02:40
Wound Culture [Wound/Abscess/Other Culture] Urgent
BRIE Source: Surgical Wound
Specimen Description:
Date Specimen was Collected: 04/24/25
Time Specimen was Collected: 02:38
Comment: left lumbar surgical wound
Wound Culture [Wound/Abscess/Other Culture] Urgent
BRIE Source: Surgical Wound
Specimen Description:
Date Specimen was Collected: 04/24/25
Time Specimen was Collected: 02:38
Comment: right lumbar incision
04/24/25 03:03
CT Lumbar Spine W/ Iv Contrast Urgent
Comment:
Reason For Exam: low back pain, s/p lamenectomy
04/24/25 03:16
Vancomycin [Vancocin] 2,000 mg 0.9% Sodium Chloride 500 ml [Nss] 500 ml IV NOW
04/24/25 05:01
Admit/Transfer Patient As Directed
Co-Sign Provider:
Level of Care: Inpatient admission
Assign to:: Medical/Surgical
Physician / Group: Barbara
Diagnosis: wound infection
Reason for Hospitalization: wound infection
Expected length of stay greater than two midnights?: Yes
ELOS- Estimated Length of Stay in days: 2
I certify the patient meets the requirements for IP care: Yes
PRN Pain Medication Management As Directed
May give lesser potent ordered pain med per pt: Yes
preference::
Protocol:: Medication orders for pain may be administered in a
manner that supports deferring to patient preference
when the pt is:
- Requesting an ordered lesser potent pain medication.
Least to most potent pain medications are defined
as: acetaminophen < NSAID < tramadol < opioids
(morphine, oxycodone, hydromorphone).
- Requesting a lesser dose of the same medication IF
ORDERED.
- Requesting a less intrusive route of administration
if both routes are prescribed by the provider (PO <
IV).
04/24/25 05:02
Code Status As Directed
Resuscitation Status: Full Code
04/24/25 Breakfast
NPO
Allow oral meds: No
Allow clear liquids: No
NPO with Ice Chips: No
Abnormal Lab Results
04/23/25 04/23/25
23:15 23:25
WBC 13.6 H 10^3/uL
(4.8-10.8)
MCH 31.1 H pg
(27.0-31.0)
Abs Immat Gran (auto) 0.1 H 10^3/uL
(0-0.05)
Absolute Neuts (auto) 9.9 H 10^3/uL
(1.4-6.5)
Absolute Monos (auto) 0.9 H 10^3/uL
(0.1-0.6)
Lymphocytes % 18.7 L %
(20.5-51.1)
Creatinine 0.5 L mg/dL
(0.6-1.0)
Glucose 160 H mg/dl
(70-99)
ALT 39 H U/L
(0-35)
Alkaline Phosphatase 188 H U/L
(38-126)
Urine Glucose 4+ A
(Negative)
04/23/25 23:15
04/23/25 23:15
Vital Signs
Initial and Last Documented VS:
Initial Vital Signs
Temp Pulse Resp BP Pulse Ox
99.2 F 109 20 115/72 97
04/23/25 22:56 04/23/25 22:56 04/23/25 22:56 04/23/25 22:56 04/23/25 22:56
Last Documented Vital Signs
Temp Pulse Resp BP Pulse Ox
98.6 F 99 25 98/71 96
04/24/25 06:00 04/24/25 07:00 04/24/25 07:00 04/24/25 07:00 04/24/25 07:00
<Maritza Payne PA-C - Last Filed: 04/24/25 07:45>
*Pulse Oximetry
SaO2: 99
Oxygen Mode of Delivery: Room air
Patient hypoxic: no
*Critical Care Note
Total Time (30-74mins, 75-104mins- exclusive of procedures): Not Applicable
ED Attending Note
<Maritza Payne PA-C - Last Filed: 04/24/25 07:45>
-
Portions of this chart may have been created with voice recognition software.� Occasional wrong word or��sound alike� substitutions may have occurred due to the inherent limitations of voice recognition software.
<Peace Logan DO - Last Filed: 04/24/25 04:34>
ED Attending Note
Patient seen and examined by attending physician: Yes
I performed a history and physical exam of patient and discussed management with resident, I reviewed resident's note and agree with documented findings and plan of care.: Yes
ED Attending Note:
64-year-old woman who underwent lumbar laminectomy March [address] Gentile. Had been feeling well postoperatively with complete relief of low back pain. She has 2 vertical lower lumbar incisions and noted a small opening of the left lumbar
incision site, mid aspect with scant serous drainage since April 20. She did contact her surgeon was recommended to just apply a dry sterile dressing. She has continued with scant drainage since then with onset of low-grade fever the
following day, Wednesday, April 21 and then noticed a small opening mid aspect of the right vertical lumbar incision since yesterday with onset of moderate low back pain since this evening and progression of fever accompanied with headache,
generalized aches and neck pain. She has had intermittent nausea without vomiting. Back pain is worse when lying supine, improves when lying on her side. She has had no abdominal pain, no radicular signs or symptoms, no weakness nor numbness. No
saddle anesthesia, no difficulty moving her bowels or bladder.
She has history of rheumatoid arthritis, ankylosing spondylitis, maintained on Humira that was on hold until 2 weeks postoperatively, she has since resumed.
She also has history of diabetes, maintained on Mounjaro as well as Jardiance. No longer taking insulin.
Exam notable for 64-year-old woman appears her stated age. Moderately febrile at 101.7 �F.
Lower lumbar region has 2 vertical incisions with small pinpoint open areas mid aspect of each incision with mild to moderate serosanguineous drainage. There is moderate tenderness along the lateral aspect of the right lumbar incision with mild
local erythema.
Culture obtained from both sites.
Significant concern for postop wound infection, concern for osteomyelitis, epidural abscess.
Labs reveal mildly elevated white blood cell count of 13.6. Normal lactic acid. Random glucose 160. No acidosis.
Mildly elevated alkaline phosphatase at 188. Similar elevations noted previously.
IV fluid bolus initiated. Will medicate for pain and will initiate broad-spectrum antibiotics.
Dr. Gentile has been notified via [facility] text. Recommend CT of the lumbar spine, patient will likely require washout procedure.
Will plan to admit to hospitalist service with consult with Dr. Gentile.
Discharge Plan
Departure
Patient Disposition: Admit
Date of Disposition: 04/24/25
Time of Disposition: 04:48
Admit to: Med/Surg
Presentation/result/management discussed w/ accepting MD/DO: Hospitalist
Patient with high blood pressure during this ER visit?: Yes
Condition: Fair
Discharge Problem:
Post-operative infection, Status post laminectomy, Sepsis
Interventions
Interventions:
*Risk Screen - Suicide Last Done: 04/23/25 22:43
*General Assessment Last Done: 04/23/25 22:56
*Neglect/Abuse Screening Last Done: 04/23/25 22:56
*ED- Fall Risk Assessment Last Done: 04/23/25 22:56
*ED COVID-19 Vaccine History Last Done: 04/23/25 22:56
ED-Skin Assessment Last Done: 04/24/25 01:39
[2025-04-24] MEDS: OFIRMEV 100 IV (02:38)
[2025-04-24] MEDS: ZOFRAN 4 MG IV ×2 (02:39→09:03)
[2025-04-24] MEDS: ZOSYN 100 IV (02:43)
[2025-04-24] MEDS: VANCOCIN 540 MG IV (04:08)
--- NOTE | 2025-04-24 04:56 | HPS.HSE ---
Family Physician
-
Family Physician: Gurjit Lepe Jr.
Chief Complaint
-
Postoperative changes
History of Present Illness
This is a 62-year-old female with past medical history significant for ankylosing spondylitis on room air, history of DVT on Eliquis, insulin-dependent diabetes, status post laminectomy on March 19 now coming in with acute onset of fever and back
pain as well as having purulent drainage from a surgical wound. She has been doing fine since February that he had on daily onset of symptoms today.
She arrived in the emergency department with a temp of 101.5. Blood pressure was 95/60 with a pulse rate of 87 and she was satting 100% on room air. She had a white count of 13.6, CBC otherwise unremarkable stop electrolytes BUN/creatinine were
normal. UA was negative.
CT of the abdomen pelvis showing subcutaneous emphysema and fluid in the dorsal cutaneous tissues at the surgical site reflecting severe infection vs dehiscent wound
Medical History
Past Medical History
Past Medical History: Reports Other
Additional Past Medical History:
Diabetes Mellitus Type 2, with mixed hyperlipidemia
Ankylosing Spondylitis/HLA B27 +/Trial of Simponi Aria/Dr Ramirez
DVT (deep venous thrombosis), recurrent (2016)/Dr El Lifelong anticoagulation
Mixed Hyperlipidemia
GERD
ALLERGIC RHINITIS
OSTEOARTHRITIS
VITAMIN D DEFICIENCY NOS
Irritable bowel disease
Sleep Apnea on CPAP started 04/09
diverticulitis
Past Surgical History: Reports Other
Additional Past Surgical History:
Arthroscopy knee(1979)
Hernia repair Ventral Hernia-Abdominoplasty and Herniorhaphy(1995)
Tonsillectomy(1984)
Bilateral tubal ligation(1999)
Cholecystitis-Cholecystectomy(1991)
Torn Medial Meniscus Left Knee-Surgery(1986)
Left Knee/Medial Meniscus Tear-Arthroscopy (1993)
Medial meniscus repair-Surgical repair and removal of ant cruciate ligament (1994)
RT knee surgery - meniscus repair(2013)
Rectocele Prolapse Surgery- Dr Corbin- 04/2020
Right cataract 11/28 Dr Zhang
Social History
Tobacco: Non-smoker
Alcohol: None
Drug: None
Living: With Family
Family History
Family History: Not pertinent
Allergies / Home Medications
Allergies reflects when Allergies were last updated in [facility].
Home Medications with original date entered in [facility]
Allergy/Medication List:
Allergies
Allergy/AdvReac Type Severity Reaction Status Date / Time
etanercept (From Enbrel) Allergy Swelling Verified 04/23/25 22:56
oxycodone Allergy Hives Verified 04/23/25 22:56
Home Medications
Amjevita 40 MG/0.8ML as directed Subcutaneous q 2 weeks Active
Mounjaro 7.5 MG/0.5ML as directed Subcutaneous once a week on hold ? Not-Taking/PRN
Atorvastatin Calcium 40 MG 1 tablet Orally Once a day for 90 days 40mg Active
Jardiance 10 MG 1 tablet Orally Once a Day Active
DULoxetine HCl 20 MG TAKE 1 CAPSULE BY MOUTH TWICE DAILY for 90 Active
Calcium Active
HYDROcodone-Acetaminophen 2.5-325 MG one tablet Orally every 6 hours Active
Multi-Vitamins take 1 Tablet by Oral route every day Oral Jun, Active
Vitamin D 5,000 every day, 10,000 sat and sun Active
Eliquis 2.5 MG TAKE 1 TABLET BY MOUTH TWICE DAILY for 90 Active
Vitamin C Active
Review of Systems
-
History Source: Patient
Constitutional: Reports Fever
EENT: Reports No Symptoms
Respiratory: Reports No Symptoms
Cardiac: Reports No Symptoms
Abdomen/GI: Reports No Symptoms
: Reports No Symptoms
Musculoskeletal: Reports Joint Pain, Joint Swelling and Edema
Neurological: Reports No Symptoms
Endocrine: Reports No Symptoms
Hematologic/Lymphatic: Reports No Symptoms
Psych: Reports No Symptoms
Physical Exam
Vital Signs
Vital Signs
Temp Pulse Resp BP Pulse Ox
98.5 F 87 18 95/64 93
04/24/25 03:04 04/24/25 04:30 04/24/25 04:30 04/24/25 04:18 04/24/25 04:30
Physical Exam
General: Well Developed, Well Nourished and No Apparent Distress
HEENT: NormoCephalic, Moist mucous membranes and Atraumatic
Respiratory: Clear
Cardiac: S1/S2 and Regular Rhythm; No Murmur or Rub
GI: Soft, Non Tender, Non Distended and Normal Bowel Sounds; No Organomegaly
Rectal: Deferred by Provider
Musculoskeletal: No Clubbing, No Cyanosis and No Edema
Skin: No Rash
Neuro: Nonfocal/grossly intact
Laboratory Results
-
04/23/25 23:15
04/23/25 23:15
Laboratory Results
Lactic Acid Cancelled 04/24/25 03:15
Total Bilirubin 0.9 mg/dl (0.2-1.3) 04/23/25 23:15
AST 27 U/L (14-36) 04/23/25 23:15
ALT 39 U/L (0-35) H 04/23/25 23:15
Alkaline Phosphatase 188 U/L (38-126) H 04/23/25 23:15
Data Reviewed
-
CT Scan: Report Reviewed by me
Lab Data: Labs Reviewed by me
Old Records: Reviewed
Impression/Plan
-
IMPRESSION:
64-year-old with past medical history of ankylosing spondylitis, diabetes and history of DVT who presents to the emergency department from 1 month postop from a spine surgery with fevers chills and drainage from the surgical incision site consistent
with a wound infection. CTs consistent with severe surgical site infection vessels the dehiscence of the wound. Orthopedic (Dr. Gentile aware)
PLAN:
Surgical site infection
-Admit to MedSurg
-N.p.o.
-Blood and wound culture sent
-IV Vanco and Zosyn
-Hold anticoagulation for now
-IV fluids, pain control and antiemetics
-Orthopedic consulted and aware, patient going to OR in a.m. for washout
DM 2
Blood glucose every 6 hours while NPO
Low-dose aspart sliding scale
DVT prophylaxis�SCDs for now, pending surgery then afterwards can continue with chemical prophylaxis
CODE STATUS�full code
[2025-04-24] MEDS: DILAUDID 0.5 MG IV (09:05)
[2025-04-24 09:18] LABS: Glucose - Point of Care 144 mg/dl (70-99)
[2025-04-24] MEDS: LR 1000 IV (09:19)
[2025-04-24] MEDS: ZOSYN 50 IV ×2 (09:29→21:54)
--- NOTE | 2025-04-24 09:43 | PHA.VAN.IN ---
Assessment
- Assessment
Renal Function: Appears similar to baseline
Concomitant Antimicrobials: piperacillin/tazobactam
AUC Dosing Plan
- Dosing Variables
Dosing Weight (kg): 83
Dosing CrCl (ml/min): 100
Vd coefficient (L/kg): 0.7
- Empiric Dosing
Initial / Loading Dose: 2000mg - 04/24 04:08
Maintenance Regimen: Vanc 1250mg Q12H starting at 1800
Estimated AUC (mcg*h/mL): 525
Estimated Peak (mcg*h/mL): 33.1
Estimated Trough (mcg/ml): 13.2
Estimated Half Life (H): 7.9
- Monitoring
No levels ordered at this time: consider levels in next few days
Pharmacokinetics Vancomycin I
- -
Patient Age: 64
Patient Sex: Female
Vancomycin Day #: 1
Indication: Skin And Soft Tissue
Requesting Provider: Dr. Jimenez
Pertinent Antimicrobial Allergies:
no pertinent antibiotic allergies
Height / Weight:
Height 5 ft 8.5 in
Actual Weight 83.2 kg
Pertinent Past Medical History: DM, Laminectomy (February 2025)
- Vital Signs / Lab Results
Temp Pulse Resp BP Pulse Ox
99.9 F 100 14 103/70 99
04/24/25 08:00 04/24/25 08:05 04/24/25 08:05 04/24/25 08:05 04/24/25 08:05
Lab Results - Hematology
04/23/25
23:15
WBC 13.6 H
Lab Results - Chemistry
04/23/25
23:15
BUN 12
Creatinine 0.5 L
Albumin 4.4
04/23/25 04/24/25
23:15 03:15
Lactic Acid 1.4 Cancelled
Lab Results - Urine
04/23/25
23:25
Urine Nitrite (Reflex) Negative
Leukocyte Esterase Rfl Negative
Microbiology Results
04/24/25 02:40 Gram Stain - Preliminary
Surgical Wound
[2025-04-24] MEDS: CYMBALTA DELAYED RELEASE 20 MG PO ×2 (10:06→20:33)
--- NOTE | 2025-04-24 11:34 | W.PN.UPDATE ---
Update Note
Progress Note Update
Hospitalist H&P from 0456 this morning. I have reviewed the patient's chart and independently evaluated her in the bedside in the ED.
64-year-old female with ankylosing spondylitis on Amjevita, NIDDM, DUANE on CPAP, dyslipidemia, GERD, H/O DVT on Eliquis, S/P recent laminectomy that presented to the ED overnight with a complaint of purulent drainage from her surgical wound from
recent laminectomy. Was performed on March 19, 2025. Had temperature of 101.5 �F. Upon arrival has remained hemodynamically stable and afebrile. WBC 13.6. Lumbar spine CT demonstrated subcutaneous emphysema and fluid in the dorsal cutaneous soft
tissues at the surgical site extending from L2-L4 consistent with severe inflammatory infectious processes. Orthopedics who recommended OR today for washout. Cultures were obtained and started on IV Zosyn.
Purulent surgical site infection with subcutaneous emphysema. Immunocompromise state from adalimumab likely contributing. S/p L2-L4 laminectomy on March 19. Was started on IV vancomycin and Zosyn following blood and wound cultures. Will continue
with empiric antibiotics and maintain n.p.o. status pending OR today for washout. Follow cultures, trend CBC and temperature curve. Continue with as needed analgesics and antiemetics
NIDDM. Home regimen includes tirzepatide, Jardiance. Was transition to ISS with Accu-Cheks on arrival. Will continue with sliding scale insulin and Accu-Cheks, maintain tight blood glucose goals with concurrent infection, avoid hypoglycemia
N.p.o. pending OR, carbohydrate controlled thereafter
SCDs for DVT prophylaxis pending OR
Full code
Expected discharge >48 hours
--- NOTE | 2025-04-24 13:05 | PTCARENOTE ---
received pt from ed. pt ambulated into romm x1 assistance. AAox3, VSS, HR tachy 110s, c/o back pain of 5 at rest. oriented to room. call hawley within [facility] care ongoing
--- NOTE | 2025-04-24 13:31 | CM ---
CM reviewed chart and met with pt bedside in ED. Pt recently had laminectomy on 03/19 at [facility].
Lives with her in 2 story home, [address], has first floor half BA, second floor BR/full BA.
Independent in ADLs and personal care at baseline. No assistive devices.
Had [facility] [place] after her surgery, not current. No hx SNF.
PCP: Gurjit Lepe
Pharmacy: [facility]
Discharge plan: Anticipate home no needs pending ongoing medical evaluation.
[2025-04-24 15:50] LABS: Glucose - Point of Care 136 mg/dl (70-99)
--- NOTE | 2025-04-24 16:30 | CON.MD ---
Consultation - Medical
-
Pt status post almi fusion
Doing well until last week
Had wound drainage
Pt taking immunosupressants for rheumatologic condition and is diabetic.
Given clinical picture I felt it best to washout and likely place VAC
Will likelyt not take out screws
[2025-04-24 18:06] LABS: Glucose - Point of Care 106 mg/dl (70-99)
[2025-04-24] MEDS: ZOSYN IV (18:07)
[2025-04-24] MEDS: DILAUDID 0.25 MG IV (18:09)
[2025-04-24] MEDS: VANCOCIN 275 MG IV (18:56)
[2025-04-24 21:54] LABS: Glucose - Point of Care 104 mg/dl (70-99)
[2025-04-25] MEDS: LR 1000 IV (00:53)
[2025-04-25] MEDS: TYLENOL 650 MG PO ×3 (01:15→17:37)
[2025-04-25] MEDS: DILAUDID 0.5 MG IV (01:16)
[2025-04-25 03:29] VITALS: BP 108/56
[2025-04-25] MEDS: ZOSYN 50 IV ×4 (04:59→21:09)
[2025-04-25] MEDS: VANCOCIN 275 MG IV ×2 (05:01→17:38)
[2025-04-25] MEDS: CYMBALTA DELAYED RELEASE 20 MG PO ×2 (07:38→21:09)
[2025-04-25 08:29] VITALS: BP 93/58
[2025-04-25] MEDS: NOVOLOG FLEXPEN-LOW RESISTANCE SC ×2 (08:41→12:16)
[2025-04-25 08:52] LABS: Hematocrit 33.7 % (37.0-47.0); Hemoglobin 11.2 g/dL (12.0-16.0); Mean Corp Hgb Conc. 33.2 g/dL (33.0-37.0); Mean Corpuscular Volume 92.8 fL (81.0-99.0); Nucleated Red Blood Cells % 0 %; Platelet Count 162 10^3/uL (130-400); Red Cell Dist. Width 12.1 % (11.5-14.5)
[2025-04-25 09:02] LABS: Blood Urea Nitrogen 6 mg/dl (7-17); Calcium 8.0 mg/dl (8.4-10.2); Carbon Dioxide 25 mmol/L (22-30); Chloride 108 mmol/L (98-107); Estimated Creatinine Clearance 102 ml/min; Glucose 112 mg/dl (70-99); Potassium 3.9 mmol/L (3.5-5.1); Sodium 136 mmol/L (135-145); eGFR > 60.00
--- NOTE | 2025-04-25 09:25 | PHA.VAN.FU ---
Vancomycin Assessment / Plan
- Assessment
Renal Function: Stable
WBC's are: Trending Down
Concomitant Antimicrobials: piperacillin/tazobactam
- Dosing Plan
Continue: Vanc 1250mg Q12H
- Monitoring Plan
No level(s) ordered at this time: consider levels in next few days
- Follow Up
Pharmacy will continue to follow.
Vancomycin Follow UP
- -
Patient Age: 64
Patient Sex: Female
Vancomycin Day #: 2
Indication: Skin And Soft Tissue
Requesting Provider: Dr. Jimenez
Pertinent Antimicrobial Allergies:
no pertinent antibiotic allergies
Height / Weight:
Height 5 ft 9 in
Actual Weight 78.642 kg
Pertinent Past Medical History: DM, Laminectomy (February 2025)
- Vital Signs / Lab Results
Temp Pulse Resp BP Pulse Ox
98.3 F 86 16 93/58 96
04/25/25 08:29 04/25/25 08:29 04/25/25 08:29 04/25/25 08:29 04/25/25 08:29
Lab Results - Hematology
04/23/25 04/25/25
23:15 08:22
WBC 13.6 H 7.5
Lab Results - Chemistry
04/23/25 04/25/25
23:15 08:22
BUN 12 6 L
Creatinine 0.5 L 0.5 L
Estimated Creat Clear 102
Albumin 4.4
04/23/25 04/24/25
23:15 03:15
Lactic Acid 1.4 Cancelled
Microbiology Results
04/24/25 17:30 Fungal Culture - Preliminary
Lumbar Culture in progress.
Positive cultures are reported as soon as detected.
Final report to follow in four to five weeks.
04/23/25 23:50 Blood Culture - Preliminary
Blood/Venous No Growth in 24 hours- Final report to follow
04/23/25 23:15 Blood Culture - Preliminary
Blood/Venous No Growth in 24 hours- Final report to follow
04/24/25 02:40 Gram Stain - Preliminary
Surgical Wound
04/24/25 02:40 Gram Stain - Preliminary
Surgical Wound
[2025-04-25 09:43] LABS: Glucose - Point of Care 143 mg/dl (70-99)
[2025-04-25 10:57] VITALS: BP 104/64
[2025-04-25 11:07] VITALS: BP 101/61
[2025-04-25] MEDS: LR IV (11:11)
--- NOTE | 2025-04-25 11:20 | CM ---
Chart reviewed and per updated spine orthopedic notes plan is for possible wash out with wound vac, pillowcase maker will follow with patient progress, patient would also benefit from PT/OT evaluations.
Plan; await PT/OT, procedure and wound vac placement.
[2025-04-25 12:15] LABS: Glucose - Point of Care 142 mg/dl (70-99)
--- NOTE | 2025-04-25 12:59 | PN.CDI ---
CDI
- -
CDI:
Physician Documentation Request
Admit Date: 04/24/25 05:13
Dear Doctor Raleigh,
Please review the following and provide your response in the progress notes.
Clinical Indicators:
- Patient admit for surgical site infection following laminectomy
- On admission: WBC 13.6, Tmax 101.7, HR 90-100s
- IV abx Vancocin, Zosyn
- 2L IVF
- 8/5 H&P 'Purulent surgical site infection with subcutaneous emphysema'
Please clarify which most accurately describes the patient:
Sepsis due to surgical site infection
SIRS due to a non-infectious source
Indicate the known or suspected etiology
Indicate if there is associated organ dysfunction, such as renal or respiratory failure
Other (please specify)
Use of terms such as suspected, likely, concern for, or probable (associated with a specific diagnosis that is being evaluated, monitored, or treated as if it exists) are acceptable and can be coded in the inpatient setting, when documented at the
time of discharge.
Thank you,
Daniel Jennings RN
CDI Specialist
Please use your independent medical judgment in providing your response.
--- NOTE | 2025-04-25 13:19 | W.PN.HOSP.TC ---
Today's Communication/Plan
-
Continue broad-spectrum antibiotics
ID and wound care consult
PT consult
Monitor wound VAC output
Assessment / Plan
Assessment / Plan
#Sepsis secondary to purulent surgical site infection
#S/p recent laminectomy L2-4
-Underwent lumbar spinal fusion in March; developed purulent drainage from the site
-Presented with leukocytosis, hypotension, tachycardia; observed purulent drainage from incision
-Was started on IV vancomycin and Zosyn empirically following cultures; s/p OR washout 04/24/2025
-Remains on broad-spectrum antibiotics, consult ID for further guidance on duration and stepdown therapy
-Trend CBC and temperature curve, follow cultures
-Monitor output from wound VAC, surgery appreciated
-Continue with as needed analgesics
-Wound care consulted
#Postoperative ABLA
-Hemoglobin dropped from normal range to 11.2 following an OR washout on 04/24
-Home Eliquis currently on hold, question if she had some residual activity at time of procedure
-Continue to hold Eliquis and chemical DVT prophylaxis, trend CBC
-Consider transfusion for hemoglobin <7 or anemic symptoms
#Ankylosing spondylitis
#Immunocompromise status
-Home regimen includes adalimumab 40 mg every 2 weeks; known HLA-B27 positivity
-Holding biologic agent in the context of active infection, suspect immunocompromise contributed
-Will need to follow-up OP with rheumatology after discharge
#DUANE on CPAP
-No known history of pulmonary hypertension
-Reported compliant with CPAP
#NIDDM
-Home regimen includes Jardiance and tirzepatide; recent A1c 5.9%
-Takes gabapentin for diabetic neuropathy; no other microvascular disease
-Was transition to ISS upon arrival, BG goal 140-180
#Dyslipidemia
-No known ASCVD history, home regimen includes moderate intensity statin
#H/O DVT
-Home regimen includes Eliquis 2.5 mg twice daily
-Unclear etiology, no known hypercoagulable state or other thrombotic history
Diet: Cholesterol-lowering
DVT prophylaxis: SCDs
CODE STATUS: Full code
Disposition: Consult PT
Anticipated Discharge: > 48 hours
Subjective/Interval History
-
Date of Service: April 25, 2025
Seen and examined bedside. No acute events reported overnight. AFVSS this morning
Patient was taken to the OR for washout of surgical site infection. Feels well today, hemoglobin dropped from 14-11.4 after procedure.
Denies chest pain, dyspnea, hematochezia, melena, fevers or chills.
Objective Data
-
Labs:
Laboratory Results
04/25/25
08:22
WBC 7.5
Hgb 11.2 L D
Hct 33.7 L
Plt Count 162 D
Sodium 136
Potassium 3.9
Chloride 108 H
Carbon Dioxide 25
BUN 6 L
Creatinine 0.5 L
Glucose 112 H
Calcium 8.0 L D
Vital Signs:
Vital Signs
Temp Pulse Resp BP Pulse Ox
98.4 F 92 16 101/61 95
04/25/25 11:07 04/25/25 11:07 04/25/25 11:07 04/25/25 11:07 04/25/25 11:07
I&O
04/24/25 04/25/25 04/26/25
06:59 06:59 06:59
Output Total 50 / 50
Balance -50 / -50
Review of Systems
-
History Source: Patient
All other systems: Reviewed and negative
Physical Exam
-
General: Well Developed, Well Nourished, No Apparent Distress and Comfortable
HEENT: Normocephalic, Atraumatic, Moist Mucous Membranes and Anicteric
Respiratory: Clear to Auscultation and Non Labored Respirations; Negative Accessory Resp Muscle Use
Cardiac: Regular Rhythm and S1/S2; Negative Murmur, Rub, JVD or Gallop
GI: Soft, Nontender, Nondistended and Normal Bowel Sounds
Musculoskeletal: No Clubbing, No Cyanosis and No Edema
Skin: Warm, Dry, Normal Turgor and Other (Spinal incision with surrounding erythema, no purulence; wound VAC in place with dark red output); Negative Rash
Neuro: AO x 3, Nonfocal/Grossly Intact and Central Nerve's Intact; Negative Tremors
Psych: Calm
Data Reviewed
-
Labs: Labs Reviewed by me, Discussed with Physician (Infectious disease), Discussed with Nurse and Discussed with Patient
--- NOTE | 2025-04-25 13:47 | CON.ID ---
Consultation
-
Date/Time Consultation Requested: April 25, 2025 0809
Date/Time Consultation Performed: April 25, 2025 1350
Requesting Provider: Dr. Brandt Storey
Performing Provider: Dr. Maria Fernanda Tidwell
Reason for Consultation: Surgical site infection
Chief Complaint / Past History
Chief Complaint
Fever
History of Present Illness
64-year-old female with history of diabetes mellitus, ankylosing spondylitis on biologic who recently underwent lumbar laminectomy/fusion on March 19 who presented to the hospital on April 24 with fever and draining incisional wound. Patient reports
she was doing well postop. On Wednesday, April 20 she noted the left incision site with yellow drainage. On Wednesday she developed fevers. The right incision site also started to drain. She had discomfort on her back. She therefore came to the
hospital. She was febrile 101.7. White count 13.6. CAT scan showed emphysema/fluid within the subcutaneous tissue at the level of L2-L4. Yesterday she was taken to the OR status post incision and drainage to deep fascia; no defect of fascia
noted; implant was not exposed. She currently has a wound VAC. She is feeling better today.
Past History
Additional Past Medical History:
Diabetes mellitus type 2
Dyslipidemia
Ankylosing spondylitis on adalimumab
History of DVT
IBS
Sleep apnea on CPAP
History of diverticulitis
Additional Past Surgical History:
Lumbar laminectomy/fusion with screws March 19, 2025
Arthroscopy knee(1979)
Hernia repair Ventral Hernia-Abdominoplasty and Herniorhaphy(1995)
Tonsillectomy(1984)
Bilateral tubal ligation(1999)
Cholecystitis-Cholecystectomy(1991)
Torn Medial Meniscus Left Knee-Surgery(1986)
Left Knee/Medial Meniscus Tear-Arthroscopy (1993)
Medial meniscus repair-Surgical repair and removal of ant cruciate ligament (1994)
RT knee surgery - meniscus repair(2013)
Rectocele Prolapse Surgery- Dr Corbin- 04/2020
Right cataract 11/28 Dr Zhang
Allergy History:
etanercept (From Enbrel) Allergy (Verified 04/23/25 22:56)
Swelling
oxycodone Allergy (Verified 04/23/25 22:56)
Hives
Medications Reviewed: Yes
Current Antibiotics:
Vancomycin
Zosyn
Social History
Tobacco: Non-Smoker
Alcohol: None
Drug: None
Living: With Family
Family History
Family History: Not Pertinent
Review of Systems
Review of Systems
General: Fever and Chills; Negative Change in Appetite
HEENT: Negative Sinus Problems, Headache or Pharyngitis
Cardiovascular: Negative Chest Pain or Dyspnea
Respiratory: Negative Dyspnea or Cough
Gasteroenterology: Negative Nausea, Vomiting or Diarrhea
Genital / Urological: Negative Dysuria or Flank Pain
Endocrine: Negative Weakness
Neurological: Negative Dizziness
All systems: All other systems were reviewed and were negative
Vital Signs
Temp Pulse Resp BP Pulse Ox
98.4 F 92 16 101/61 95
04/25/25 11:07 04/25/25 11:07 04/25/25 11:07 04/25/25 11:07 04/25/25 11:07
Selected Entries
04/24/25
01:48 04/25/25
03:29
Temp 101.7 F H 100.4 F H
Physical Exam
Physical Exam
Constitutional: No Acute Distress and Comfortable
Eyes: No Conjunctival Hemorrhage and Sclera Anicteric
Cardiovascular: Regular Rate and S1/S2
Pulmonary: Clear
Gastrointestinal: Soft, Non Tender, Non Distended and Normal Bowel Sounds
Genito-Urinary: Negative CVA Tenderness
Wound: Other (lumbar wound vac in place)
Neurological: AO x 3
Lab / Diagnostic Study Results
04/25/25 08:22
08/06/25 08:22
Abs Immat Gran (auto) 0.0 10^3/uL (0-0.05) 04/25/25 08:22
Absolute Neuts (auto) 4.8 10^3/uL (1.4-6.5) 04/25/25 08:22
Absolute Lymphs (auto) 2.0 10^3/uL (1.2-3.4) 04/25/25 08:22
Absolute Monos (auto) 0.6 10^3/uL (0.1-0.6) 04/25/25 08:22
Absolute Basos (auto) 0.0 10^3/uL (0-0.2) 04/25/25 08:22
Immature Gran % 0.3 % (0-0.5) 04/25/25 08:22
Neutrophils % 63.2 % (42.2-75.2) 04/25/25 08:22
Lymphocytes % 26.5 % (20.5-51.1) 04/25/25 08:22
Monocytes % 8.2 % (1.7-9.3) 04/25/25 08:22
Eosinophils % 1.3 % (0-6) 04/25/25 08:22
Basophils % 0.5 % (0-2) 04/25/25 08:22
Lactic Acid Cancelled 04/24/25 03:15
Microbiology Results
Micro:
04/24/25 02:40 Wound Culture - Preliminary
Surgical Wound Gram Stain - Preliminary
04/24/25 02:40 Wound Culture - Preliminary
Surgical Wound Gram Stain - Preliminary
04/24/25 17:30 Fungal Culture - Preliminary
Lumbar Culture in progress.
Positive cultures are reported as soon as detected.
Final report to follow in four to five weeks.
04/23/25 23:50 Blood Culture - Preliminary
Blood/Venous No Growth in 24 hours- Final report to follow
04/23/25 23:15 Blood Culture - Preliminary
Blood/Venous No Growth in 24 hours- Final report to follow
04/24/25 17:30 Anaerobic Culture - Pending
Lumbar
04/24/25 17:30 Wound Culture - Pending
Lumbar Gram Stain - Pending
04/24/25 14:28 MRSA Screen - Pending
Nose
04/24/25 CT lumbar spine: Evaluation overall markedly limited as a result of beam hardening artifact from metal hardware in the mid to lower lumbar spine.
Subcutaneous emphysema and fluid in the dorsal cutaneous soft tissues at the surgical site extending from L2 to L4 level, extended period of time since surgery of March 19, 2025 suggests the possibility of severe inflammatory/infectious process.
Consider contrast-enhanced MRI of the lumbar spine and also suggest spine surgical consultation.
Assessment / Plan
# Post-op skin and soft tissue
( Recent laminectomy/fusion 04/18/25)
# Fever
# Leukocytosis resolved
# Ankylosing spondylitis on biologic
# DM
- 04/24 s/p I+D to deep fascia; no exposure of implant
- Await OR cx's.
- Will de-escalate Vanco/Zosyn when cx data available.
Since no deep infection, will consider outpt po abx.
- Trend temps.
[2025-04-25 16:22] VITALS: BP 97/66
--- NOTE | 2025-04-25 16:30 | WOUNDNOTE ---
WOC RN note: Faxed [facility] residential vac request paperwork to Joyce Marte from [facility].
[2025-04-25 17:02] LABS: Glucose - Point of Care 155 mg/dl (70-99)
[2025-04-25] MEDS: NOVOLOG FLEXPEN-LOW RESISTANCE 1 UNITS SC (17:38)
[2025-04-25] MEDS: TORADOL 10 MG IV (19:15)
[2025-04-25 21:23] LABS: Glucose - Point of Care 164 mg/dl (70-99)
[2025-04-25 23:25] VITALS: BP 102/58
[2025-04-26] MEDS: ZOSYN 50 IV ×4 (04:19→21:50)
[2025-04-26] MEDS: VANCOCIN 275 MG IV ×2 (05:54→17:18)
[2025-04-26 07:13] LABS: Glucose - Point of Care 133 mg/dl (70-99)
[2025-04-26 07:28] LABS: Hematocrit 34.3 % (37.0-47.0); Hemoglobin 11.7 g/dL (12.0-16.0); Mean Corp Hgb Conc. 34.1 g/dL (33.0-37.0); Mean Corpuscular Volume 92.5 fL (81.0-99.0); Nucleated Red Blood Cells % 0 %; Platelet Count 187 10^3/uL (130-400); Red Cell Dist. Width 12.0 % (11.5-14.5)
[2025-04-26] MEDS: NOVOLOG FLEXPEN-LOW RESISTANCE SC (07:29)
[2025-04-26] MEDS: CYMBALTA DELAYED RELEASE 20 MG PO ×2 (07:29→19:57)
[2025-04-26 07:44] LABS: Blood Urea Nitrogen 6 mg/dl (7-17); Calcium 8.6 mg/dl (8.4-10.2); Carbon Dioxide 26 mmol/L (22-30); Chloride 110 mmol/L (98-107); Estimated Creatinine Clearance 102 ml/min; Glucose 130 mg/dl (70-99); Potassium 3.7 mmol/L (3.5-5.1); Sodium 140 mmol/L (135-145); eGFR > 60.00
[2025-04-26 07:49] LABS: C-Reactive Protein 85.80 mg/L (0.0-10.00)
[2025-04-26 08:42] VITALS: BP 110/72
--- NOTE | 2025-04-26 09:11 | PHA.VAN.FU ---
Vancomycin Assessment / Plan
- Assessment
Renal Function: Stable
WBC's are: WNL
In the past 24 hrs, patient has been: Afebrile
Concomitant Antimicrobials: piperacillin/tazobactam
- Dosing Plan
Continue: Vanc 1250mg Q12H
- Monitoring Plan
Peak Level: 8 21:30
Trough Level: 04/27 05:30
Monitoring Comments: levels to be drawn after 5th maintenance dose
- Follow Up
Pharmacy will continue to follow.
Vancomycin Follow UP
- -
Patient Age: 64
Patient Sex: Female
Vancomycin Day #: 3
Indication: Skin And Soft Tissue
Requesting Provider: Dr. Jimenez / Yaw
Pertinent Antimicrobial Allergies:
no pertinent antibiotic allergies
Height / Weight:
Height 5 ft 9 in
Actual Weight 78.642 kg
Pertinent Past Medical History: DM, Laminectomy (February 2025)
- Vital Signs / Lab Results
Temp Pulse Resp BP Pulse Ox
98.4 F 82 16 110/72 96
04/26/25 08:42 04/26/25 08:42 04/26/25 08:42 04/26/25 08:42 04/26/25 08:42
Lab Results - Hematology
04/23/25 04/25/25 04/26/25
23:15 08:22 06:43
WBC 13.6 H 7.5 5.2
Lab Results - Chemistry
04/23/25 04/25/25 04/26/25
23:15 08:22 06:43
BUN 12 6 L 6 L
Creatinine 0.5 L 0.5 L 0.5 L
Estimated Creat Clear 102 102
Albumin 4.4
04/23/25 04/24/25
23:15 03:15
Lactic Acid 1.4 Cancelled
Microbiology Results
04/23/25 23:50 Blood Culture - Preliminary
Blood/Venous No Growth in 48 hours- Final report to follow
04/23/25 23:15 Blood Culture - Preliminary
Blood/Venous No Growth in 48 hours- Final report to follow
04/24/25 17:30 Gram Stain - Preliminary
Lumbar
04/24/25 14:28 MRSA Screen - Final
Nose No Methicillin Resistant Staphylococcus aureus isolated.
04/24/25 02:40 Wound Culture - Preliminary
Surgical Wound Gram Stain - Preliminary
04/24/25 02:40 Wound Culture - Preliminary
Surgical Wound Gram Stain - Preliminary
04/24/25 17:30 Fungal Culture - Preliminary
Lumbar Culture in progress.
Positive cultures are reported as soon as detected.
Final report to follow in four to five weeks.
--- NOTE | 2025-04-26 10:37 | CM ---
manager front reviewed patient's chart and met with patient this am and plan is for patient to return to home with wound vac, wound care nurse has ordered home wound vac, patient has been set up with visiting nurses, visiting nurse options provided
to patient and patient has selected [facility].
Plan; Home with wound vac and [facility].
--- NOTE | 2025-04-26 10:41 | VNURNOTE ---
Home Health Liaison met with patient at bedside to discuss [facility] nurse/therapy, visits, schedule and homebound status. Patient is agreeable and understands that visits at home will be 2-3 x per week to assess and teach medical and wound vac
management. Patient is aware that [facility] will contact them for start of care in 1-2 days after discharge from .
PM [facility] referral completed in [facility].
[2025-04-26 11:48] LABS: Glucose - Point of Care 151 mg/dl (70-99)
--- NOTE | 2025-04-26 11:59 | W.PN.HOSP.TC ---
Today's Communication/Plan
-
Continue broad-spectrum antibiotics
Follow cultures
Follow wound VAC output
Resume Eliquis
Trend CBC
Assessment / Plan
Assessment / Plan
#Sepsis secondary to purulent surgical site infection
#S/p recent laminectomy L2-4
-Underwent lumbar spinal fusion in March; developed purulent drainage from the site
-Presented with leukocytosis, hypotension, tachycardia; observed purulent drainage from incision
-Was started on IV vancomycin and Zosyn empirically following cultures; s/p OR washout 04/24/2025
-Remains on broad-spectrum antibiotics, consult ID for further guidance on duration and stepdown therapy
-Trend CBC and temperature curve, follow cultures
-Monitor output from wound VAC, surgery appreciated
-Continue with as needed analgesics
-Wound care consulted
#Postoperative ABLA
-Hemoglobin dropped from normal range to 11.2 following an OR washout on 04/24, repeat Hgb 11.7
-Home Eliquis currently on hold, question if she had some residual activity at time of procedure
-Consider transfusion for hemoglobin <7 or anemic symptoms
-Resume home Eliquis this evening and continue to trend CBC
#Ankylosing spondylitis
#Immunocompromise status
-Home regimen includes adalimumab 40 mg every 2 weeks; known HLA-B27 positivity
-Holding biologic agent in the context of active infection, suspect immunocompromise contributed
-Will need to follow-up OP with rheumatology after discharge
#DUANE on CPAP
-No known history of pulmonary hypertension
-Reported compliant with CPAP
#NIDDM
-Home regimen includes Jardiance and tirzepatide; recent A1c 5.9%
-Takes gabapentin for diabetic neuropathy; no other microvascular disease
-Was transition to ISS upon arrival, BG goal 140-180
#Dyslipidemia
-No known ASCVD history, home regimen includes moderate intensity statin
#H/O DVT
-Home regimen includes Eliquis 2.5 mg twice daily
-Unclear etiology, no known hypercoagulable state or other thrombotic history
Diet: Cholesterol-lowering
DVT prophylaxis: DEMETRIAsMona this evening
CODE STATUS: Full code
Disposition: Consult PT
Anticipated Discharge: > 48 hours
Subjective/Interval History
-
Date of Service: April 26, 2025
Seen and examined bedside. No acute report overnight. AFVSS this morning
Cultures still pending. 40 mL HUMPHREY output in the last 24 hours, red-tinged
Denies any new complaints, states she feels well today
Objective Data
-
Labs:
Laboratory Results
04/26/25
06:43
WBC 5.2
Hgb 11.7 L
Hct 34.3 L
Plt Count 187
Sodium 140
Potassium 3.7
Chloride 110 H
Carbon Dioxide 26
BUN 6 L
Creatinine 0.5 L
Glucose 130 H
Calcium 8.6
Vital Signs:
Vital Signs
Temp Pulse Resp BP Pulse Ox
98.4 F 82 16 110/72 96
04/26/25 08:42 04/26/25 08:42 04/26/25 08:42 04/26/25 08:42 04/26/25 08:42
I&O
04/25/25 04/26/25 04/27/25
06:59 06:59 06:59
Intake Total 800 / 800
Output Total 90 / 90
Balance 710 / 710
Review of Systems
-
History Source: Patient
All other systems: Reviewed and negative
Physical Exam
-
General: Well Developed, No Apparent Distress and Comfortable
HEENT: Normocephalic, Atraumatic, Moist Mucous Membranes and Anicteric
Respiratory: Clear to Auscultation and Non Labored Respirations; Negative Accessory Resp Muscle Use
Cardiac: Regular Rhythm and S1/S2; Negative Murmur, Rub or Gallop
GI: Soft, Nontender, Nondistended and Normal Bowel Sounds
Musculoskeletal: No Clubbing, No Cyanosis and No Edema
Skin: Warm, Dry and Other (Wound VAC); Negative Rash
Neuro: AO x 3 and Nonfocal/Grossly Intact
Psych: Calm
Data Reviewed
-
Labs: Labs Reviewed by me, Discussed with Physician (Orthopedics) and Discussed with Patient
--- NOTE | 2025-04-26 12:01 | PTOTSP ---
Received order for PT and reviewed chart. S/w nursing staff who reports pt has been up ambulating in hallway with awalker and wound vac on walker. Went to see pt in her room who confirmed and stated she has a walker, canes, wheelchair all at home if
needed. Pt expressed no concerns about going home. Visitor present who stated she alex not let pt go upstairs and will help pt as needed. Pt asking when she can shower and when she can go to outpatient PT. Instructed pt to ask Dr. Gentile. PT will sign
off.
[2025-04-26] MEDS: NOVOLOG FLEXPEN-LOW RESISTANCE 1 UNITS SC (12:27)
--- NOTE | 2025-04-26 13:32 | W.PN.ID1 ---
Date of Service
Date of Service: April 26, 2025
Today's Communication
Await or cx's then de-escalate abx.
Assessment / Plan
# Post-op skin and soft tissue
( Recent laminectomy/fusion 04/18/25)
# Fever resolved
# Leukocytosis resolved
# Ankylosing spondylitis on biologic
# DM
- 8/ s/p I+D to deep fascia; no exposure of implant
- Await OR cx's pending
- Will de-escalate Vanco/Zosyn when cx data available.
Since no deep infection, will consider outpt po abx.
Chief Complaint
-: Cellulitis
Subjective / Review of Systems
Feeling better today.
Vital Signs / Physical Exam
Vital Signs
Vital Signs
Temp Pulse Resp BP Pulse Ox
98.4 F 82 16 110/72 96
04/26/25 08:42 04/26/25 08:42 04/26/25 08:42 04/26/25 08:42 04/26/25 08:42
Physical Exam
Constitutional: No Acute Distress and Comfortable
Cardiovascular: Regular Rate and S1/S2
Pulmonary: Clear
Gastrointestinal: Soft and Non Tender
Wound: Other (lumbar wound vac in place)
Neurological: AO x 3
Objective Data
Lab Data
Lab Results
04/26/25 06:43
04/26/25 06:43
Estimated Creat Clear 102 ml/min 04/26/25 06:43
Lactic Acid Cancelled 04/24/25 03:15
Total Bilirubin 0.9 mg/dl (0.2-1.3) 04/23/25 23:15
AST 27 U/L (14-36) 04/23/25 23:15
ALT 39 U/L (0-35) H 04/23/25 23:15
Alkaline Phosphatase 188 U/L (38-126) H 04/23/25 23:15
C-Reactive Protein 85.80 mg/L (0.0-10.00) H 04/26/25 06:43
Most recent labs reviewed.
Micro Results:
04/24/25 02:40 Wound Culture - Final
Surgical Wound Gram Stain - Final
04/24/25 17:30 Wound Culture - Preliminary
Lumbar Gram Stain - Preliminary
04/24/25 02:40 Wound Culture - Final
Surgical Wound Gram Stain - Final
04/23/25 23:50 Blood Culture - Preliminary
Blood/Venous No Growth in 48 hours- Final report to follow
04/23/25 23:15 Blood Culture - Preliminary
Blood/Venous No Growth in 48 hours- Final report to follow
04/24/25 14:28 MRSA Screen - Final
Nose No Methicillin Resistant Staphylococcus aureus isolated.
04/24/25 17:30 Fungal Culture - Preliminary
Lumbar Culture in progress.
Positive cultures are reported as soon as detected.
Final report to follow in four to five weeks.
04/24/25 17:30 Anaerobic Culture - Pending
Lumbar
04/24/25 CT lumbar spine: Evaluation overall markedly limited as a result of beam hardening artifact from metal hardware in the mid to lower lumbar spine.
Subcutaneous emphysema and fluid in the dorsal cutaneous soft tissues at the surgical site extending from L2 to L4 level, extended period of time since surgery of March 19, 2025 suggests the possibility of severe inflammatory/infectious process.
Consider contrast-enhanced MRI of the lumbar spine and also suggest spine surgical consultation.
--- NOTE | 2025-04-26 14:50 | WOUNDNOTE ---
WOC RN Note: Patient's home ready care vac was approved as per [employer] portal. Confirmed with Dr. Gentile yesterday can change lumbar vac dressing tomorrow, can use adaptic with black foam and vac setting can be at 150 or 125mmhg
continuous.
--- NOTE | 2025-04-26 15:00 | WOUNDNOTE ---
WOC RN note: t/c Spoke with patient and scheduled a tentative time of 8am tomorrow to change her wound care dressing. Instructed patient to ask her nurse for pain medication around 0730 tomorrow morning. Notified patient her home vac was approved.
[2025-04-26 15:34] VITALS: BP 113/74
--- NOTE | 2025-04-26 15:45 | PTOTSP ---
orders received, chart reviewed. pt up in room ad jessica, walking hallway with walker. pt up in bathroom upon arrival. reports no difficulty with simple ADLs, aware of back precautions and impact on ADLs, IADLs. no OT needs identified, will sign off.
--- NOTE | 2025-04-26 15:57 | W.PN.SP ---
Today's Communication / Plan
-
s/p washout
VAC chnge
PLastics to eval
PT
Abx per ID
Will be away net 5 days
Avail via [facility]
Subjective / Objective
Subjective Data
PT seen amd examined
Looks better
Afebrile
WBC better
Coahg _ve staph
Objective Data
Vital Signs
Temp Pulse Resp BP Pulse Ox
98.5 F 87 16 113/74 97
04/26/25 15:34 04/26/25 15:34 04/26/25 15:34 04/26/25 15:34 04/26/25 15:34
Intake and Output
04/25/25 04/26/25 04/27/25
06:59 06:59 06:59
Intake Total 800 / 800
Output Total 90 / 90
Balance 710 / 710
Intake:
IV fluids (Total) 500 / 500
IV piggybacks 300 / 300
Output:
Drain Output (Total) 90 / 90
Middle Back Wound Vac 90 / 90
Other:
Number of approximated MODERATE 2 1
amounts of urine
Lab Data
04/26/25 06:43
04/26/25 06:43
Physical Exam
-
Ealking with good strength
[2025-04-26 17:09] LABS: Glucose - Point of Care 201 mg/dl (70-99)
[2025-04-26] MEDS: NOVOLOG FLEXPEN-LOW RESISTANCE 2 UNITS SC (17:10)
[2025-04-26] MEDS: ELIQUIS 2.5 MG PO (19:57)
[2025-04-26 21:49] LABS: Glucose - Point of Care 170 mg/dl (70-99)
[2025-04-26] MEDS: TYLENOL 650 MG PO (22:40)
[2025-04-26 23:15] VITALS: BP 100/66
[2025-04-27] MEDS: ZOSYN 50 IV ×4 (03:47→21:05)
[2025-04-27 07:00] VITALS: BP 96/60
[2025-04-27 07:34] LABS: Hematocrit 34.9 % (37.0-47.0); Hemoglobin 12.1 g/dL (12.0-16.0); Mean Corp Hgb Conc. 34.7 g/dL (33.0-37.0); Mean Corpuscular Volume 90.9 fL (81.0-99.0); Nucleated Red Blood Cells % 0 %; Platelet Count 230 10^3/uL (130-400); Red Cell Dist. Width 12.0 % (11.5-14.5)
[2025-04-27] MEDS: ELIQUIS 2.5 MG PO ×2 (07:39→19:27)
[2025-04-27] MEDS: CYMBALTA DELAYED RELEASE 20 MG PO ×2 (07:39→19:27)
[2025-04-27] MEDS: VANCOCIN 275 MG IV (07:39)
[2025-04-27] MEDS: DILAUDID 0.5 MG IV (07:41)
[2025-04-27 07:53] LABS: Blood Urea Nitrogen 7 mg/dl (7-17); Calcium 9.0 mg/dl (8.4-10.2); Carbon Dioxide 25 mmol/L (22-30); Chloride 111 mmol/L (98-107); Estimated Creatinine Clearance 102 ml/min; Glucose 153 mg/dl (70-99); Potassium 4.1 mmol/L (3.5-5.1); Sodium 142 mmol/L (135-145); eGFR > 60.00
[2025-04-27 07:54] LABS: C-Reactive Protein 38.00 mg/L (0.0-10.00)
--- NOTE | 2025-04-27 07:58 | PHA.VAN.FU ---
Addendum entered and electronically signed by Candis Bell Azalia 04/27/25 12:15:
Agree with assessment and plan
Original Note:
Vancomycin Assessment / Plan
- Assessment
Renal Function: Stable
WBC's are: WNL
In the past 24 hrs, patient has been: Afebrile
Concomitant Antimicrobials: piperacillin/tazobactam
- Assessment - Therapeutic Drug Monitoring
Extrapolated Cmax (mcg/mL): 19.2
Peak level was drawn: Appropriately (drawn ~3H after END of infusion)
Extrapolated Cmin (mcg/mL): 8.6
Trough Drawn: Appropriately
Levels were drawn: At steady state
Calculated AUC (mcg*h/mL): 318
Calculated ke: 0.0763
Calculated half life (H): 9.1
Calculated Vd (L): 102.75
Calculated Vanc CL (ml/min): 130.70
- Dosing Plan
Adjust Regimen to: 1500mg q12h
New Regimen Predicts: AUC (404), Peak (24.3), Trough (10.9)
- Monitoring Plan
No level(s) ordered at this time: consider within next few days
- Follow Up
Pharmacy will continue to follow.
Vancomycin Follow UP
- -
Patient Age: 64
Patient Sex: Female
Vancomycin Day #: 4
Indication: Skin And Soft Tissue
Requesting Provider: Dr. Jimenez / Yaw
Pertinent Antimicrobial Allergies:
no pertinent antibiotic allergies
Height / Weight:
Height 5 ft 9 in
Actual Weight 78.642 kg
Pertinent Past Medical History: DM, Laminectomy (February 2025)
- Vital Signs / Lab Results
Temp Pulse Resp BP Pulse Ox
98.4 F 87 18 100/66 97
04/26/25 23:15 04/26/25 23:15 04/26/25 23:15 04/26/25 23:15 04/26/25 23:15
Lab Results - Hematology
04/25/25 04/26/25 04/27/25
08:22 06:43 07:16
WBC 7.5 5.2 5.2
Lab Results - Chemistry
04/25/25 04/26/25 04/27/25
08:22 06:43 07:16
BUN 6 L 6 L 7
Creatinine 0.5 L 0.5 L 0.4 L
Estimated Creat Clear 102 102 102
Microbiology Results
04/23/25 23:50 Blood Culture - Preliminary
Blood/Venous No Growth in 72 hours- Final report to follow
04/23/25 23:15 Blood Culture - Preliminary
Blood/Venous No Growth in 72 hours- Final report to follow
04/24/25 17:30 Wound Culture - Preliminary
Lumbar Gram Stain - Preliminary
04/24/25 17:30 Anaerobic Culture - Preliminary
Lumbar Culture pending. Anaerobic cultures are examined after 3
days incubation. Additional information to follow.
04/24/25 02:40 Wound Culture - Final
Surgical Wound Gram Stain - Final
04/24/25 02:40 Wound Culture - Final
Surgical Wound Gram Stain - Final
04/24/25 14:28 MRSA Screen - Final
Nose No Methicillin Resistant Staphylococcus aureus isolated.
04/24/25 17:30 Fungal Culture - Preliminary
Lumbar Culture in progress.
Positive cultures are reported as soon as detected.
Final report to follow in four to five weeks.
Therapeutic Drug Monitoring
Vancomycin Peak 15.3 ug/ml (18-26) L 04/26/25 21:45
Vancomycin Trough 7.4 ug/ml (5-20) 04/27/25 07:16
[2025-04-27 09:10] LABS: Glucose - Point of Care 132 mg/dl (70-99)
--- NOTE | 2025-04-27 09:10 | WOUNDNOTE ---
WO RN note: Patient's lumbar wound vac dressing changed after ARY Blanc premedicated patient for pain. Patient tolerated fairly well. Confirmed with Dr. Gentile earlier this week to change vac dressing today and can use adaptic with black foam, setting
can be 125mmhg. Lumbar wounds pink with some yellow/white tissue. Surrounding skin D+I. Skin suture intact. Instructed patient vac trouble shooting re: air leak, canister full. Will bring up and switch to patient's home vac pump if discharged today.
Discussed with ARY Blanc. Next vac dressing due on Wednesday.
[2025-04-27] MEDS: NOVOLOG FLEXPEN-LOW RESISTANCE SC (09:31)
--- NOTE | 2025-04-27 11:05 | W.PN.HOSP.TC ---
Today's Communication/Plan
-
Continue IV vancomycin and Zosyn
Follow cultures
Trend CBC on Eliquis
Monitor wound VAC output
Plastics consulted
Assessment / Plan
Assessment / Plan
#Sepsis secondary to purulent surgical site infection
#S/p recent laminectomy L2-4
-Underwent lumbar spinal fusion in March; developed purulent drainage from the site
-Presented with leukocytosis, hypotension, tachycardia; observed purulent drainage from incision
-Was started on IV vancomycin and Zosyn empirically following cultures; s/p OR washout 04/24/2025
-Remains on broad-spectrum antibiotics, consult ID for further guidance on duration and stepdown therapy
-Trend CBC and temperature curve, follow cultures
-Monitor output from wound VAC, local wound care
-Continue with as needed analgesics
-Plastics consulted for closure
#Postoperative ABLA
-Hemoglobin dropped from normal range to 11.2 following an OR washout on 04/24, repeat Hgb 11.7
-Eliquis held perioperatively, resumed 04/26 with stable hemoglobin thereafter
-Trend CBC, PRBC for hemoglobin <7 or anemic symptoms
#Ankylosing spondylitis
#Immunocompromise status
-Home regimen includes adalimumab 40 mg every 2 weeks; known HLA-B27 positivity
-Holding biologic agent in the context of active infection, suspect immunocompromise contributed
-Will need to follow-up OP with rheumatology after discharge
#DUANE on CPAP
-No known history of pulmonary hypertension
-Reported compliant with CPAP
#NIDDM
-Home regimen includes Jardiance and tirzepatide; recent A1c 5.9%
-Takes gabapentin for diabetic neuropathy; no other microvascular disease
-Was transition to ISS upon arrival, BG goal 140-180
#Dyslipidemia
-No known ASCVD history, home regimen includes moderate intensity statin
#H/O DVT
-Home regimen includes Eliquis 2.5 mg twice daily
-Unclear etiology, no known hypercoagulable state or other thrombotic history
Diet: Cholesterol-lowering
DVT prophylaxis: SCDsMona this evening
CODE STATUS: Full code
Disposition: Consult PT
Anticipated Discharge: 24 - 48 hours
Subjective/Interval History
-
Date of Service: April 27, 2025
Seen and examined at the bedside. No acute events reported overnight. AFVSS this morning
Patient states she feels well, minimal pain following wound VAC change today
Labs stable. Denies any new complaints. Cultures remain pending
Objective Data
-
Labs:
Laboratory Results
04/27/25
07:16
WBC 5.2
Hgb 12.1
Hct 34.9 L
Plt Count 230 D
Sodium 142
Potassium 4.1
Chloride 111 H
Carbon Dioxide 25
BUN 7
Creatinine 0.4 L
Glucose 153 H
Calcium 9.0
Vital Signs:
Vital Signs
Temp Pulse Resp BP Pulse Ox
98.2 F 82 16 96/60 98
04/27/25 07:00 04/27/25 07:00 04/27/25 07:00 04/27/25 07:00 04/27/25 07:00
I&O
04/26/25 04/27/25 04/28/25
06:59 06:59 06:59
Intake Total 800 / 800 820 / 820
Output Total 90 / 90 50 / 50
Balance 710 / 710 770 / 770
Review of Systems
-
History Source: Patient
All other systems: Reviewed and negative
Physical Exam
-
General: Well Developed, Well Nourished and No Apparent Distress
HEENT: Normocephalic, Atraumatic, Moist Mucous Membranes and Anicteric
Respiratory: Clear to Auscultation and Non Labored Respirations; Negative Accessory Resp Muscle Use
Cardiac: Regular Rhythm and S1/S2; Negative Murmur, Rub or Gallop
GI: Soft, Nontender, Nondistended and Normal Bowel Sounds
Musculoskeletal: No Clubbing, No Cyanosis and No Edema
Skin: Warm, Dry and Other (Wound VAC lumbar region, red-tinged output); Negative Rash
Neuro: AO x 3, Nonfocal/Grossly Intact and Central Nerve's Intact; Negative Tremors
Psych: Calm
Data Reviewed
-
Labs: Labs Reviewed by me and Discussed with Patient
[2025-04-27 11:37] LABS: Glucose - Point of Care 194 mg/dl (70-99)
[2025-04-27] MEDS: NOVOLOG FLEXPEN-LOW RESISTANCE 1 UNITS SC ×2 (12:10→17:31)
--- NOTE | 2025-04-27 14:47 | W.PN.ID1 ---
Date of Service
Date of Service: April 27, 2025
Today's Communication
Still awaiting cx data to optimize outpt abx.
Assessment / Plan
# Post-op skin and soft tissue
( Recent laminectomy/fusion 04/18/25)
# Fever resolved
# Leukocytosis resolved
# Ankylosing spondylitis on biologic
# DM
- 04/24 s/p I+D to deep fascia; no exposure of implant
- Await OR cx's pending; prelim coag-neg staph
- Will de-escalate Vanco/Zosyn when cx data available.
Since no deep infection, will consider outpt po abx.
Chief Complaint
-: Cellulitis
Subjective / Review of Systems
Back pain better.
Vital Signs / Physical Exam
Vital Signs
Vital Signs
Temp Pulse Resp BP Pulse Ox
98.2 F 82 16 96/60 98
04/27/25 07:00 04/27/25 07:00 04/27/25 07:00 04/27/25 07:00 04/27/25 07:00
Physical Exam
Constitutional: No Acute Distress and Comfortable
Cardiovascular: Regular Rate and S1/S2
Pulmonary: Clear
Gastrointestinal: Soft and Non Tender
Wound: Other (lumbar wound vac in place)
Neurological: AO x 3
Objective Data
Lab Data
Lab Results
04/27/25 07:16
04/27/25 07:16
Estimated Creat Clear 102 ml/min 04/27/25 07:16
Lactic Acid Cancelled 04/24/25 03:15
Total Bilirubin 0.9 mg/dl (0.2-1.3) 04/23/25 23:15
AST 27 U/L (14-36) 04/23/25 23:15
ALT 39 U/L (0-35) H 04/23/25 23:15
Alkaline Phosphatase 188 U/L (38-126) H 04/23/25 23:15
C-Reactive Protein 38.00 mg/L (0.0-10.00) H 04/27/25 07:16
Most recent labs reviewed.
Micro Results:
04/24/25 17:30 Wound Culture - Preliminary
Lumbar Gram Stain - Preliminary
04/23/25 23:50 Blood Culture - Preliminary
Blood/Venous No Growth in 72 hours- Final report to follow
04/23/25 23:15 Blood Culture - Preliminary
Blood/Venous No Growth in 72 hours- Final report to follow
04/24/25 17:30 Anaerobic Culture - Preliminary
Lumbar Culture pending. Anaerobic cultures are examined after 3
days incubation. Additional information to follow.
04/24/25 02:40 Wound Culture - Final
Surgical Wound Gram Stain - Final
04/24/25 02:40 Wound Culture - Final
Surgical Wound Gram Stain - Final
04/24/25 14:28 MRSA Screen - Final
Nose No Methicillin Resistant Staphylococcus aureus isolated.
04/24/25 17:30 Fungal Culture - Preliminary
Lumbar Culture in progress.
Positive cultures are reported as soon as detected.
Final report to follow in four to five weeks.
04/24/25 CT lumbar spine: Evaluation overall markedly limited as a result of beam hardening artifact from metal hardware in the mid to lower lumbar spine.
Subcutaneous emphysema and fluid in the dorsal cutaneous soft tissues at the surgical site extending from L2 to L4 level, extended period of time since surgery of March 19, 2025 suggests the possibility of severe inflammatory/infectious process.
Consider contrast-enhanced MRI of the lumbar spine and also suggest spine surgical consultation.
[2025-04-27 15:00] VITALS: BP 92/57
--- NOTE | 2025-04-27 15:34 | CM ---
Plan is to home with new wound vac when stable and [facility].
Plan; Home with wound vac ad [facility].
--- NOTE | 2025-04-27 16:00 | WOUNDNOTE ---
[facility] RN note: Patient given her ready home vac equipment. Instructed patient how to turn on/off home vac unit, how to change home vac canister, how to plug in unit, how to clamp/disconnect and unclamp/connect vac tubing. Canister connected to home
vac unit and placed in carry garment. Instructed patient how to trouble shoot vac alarm (i.e. Air leak, canister full). Instructed patient to call [facility], surgeon's office or [employer] support 12/04 if vac suction cannot be maintained. Instructed
patient the vac cannot be off suction of more than 2 hours. Suggested patient request oral pain med script from hospitalist for home vac dressing changes for discharge. Patient signed [employer] home vac equipment proof of delivery form. [place] texted
EMILY Gonzales and Dr. Storey re: patient given home vac with instruction incase patient is discharged over the weekend. Updated RN Jayashree.
[2025-04-27 17:04] LABS: Glucose - Point of Care 163 mg/dl (70-99)
[2025-04-27] MEDS: VANCOCIN 530 MG IV (17:36)
[2025-04-27 21:02] LABS: Glucose - Point of Care 211 mg/dl (70-99)
[2025-04-27 23:08] VITALS: BP 104/56
[2025-04-28] MEDS: DILAUDID 0.5 MG IV (01:03)
[2025-04-28] MEDS: ZOSYN 50 IV ×3 (04:21→16:06)
[2025-04-28] MEDS: VANCOCIN 530 MG IV (05:00)
[2025-04-28 07:00] VITALS: BP 101/68
[2025-04-28 07:58] LABS: Glucose - Point of Care 112 mg/dl (70-99)
[2025-04-28] MEDS: NOVOLOG FLEXPEN-LOW RESISTANCE SC ×2 (07:59→12:44)
[2025-04-28] MEDS: CYMBALTA DELAYED RELEASE 20 MG PO (08:20)
[2025-04-28] MEDS: ELIQUIS 2.5 MG PO (08:20)
[2025-04-28 08:28] LABS: Hematocrit 36.4 % (37.0-47.0); Hemoglobin 12.1 g/dL (12.0-16.0); Mean Corp Hgb Conc. 33.2 g/dL (33.0-37.0); Mean Corpuscular Volume 93.3 fL (81.0-99.0); Nucleated Red Blood Cells % 0 %; Platelet Count 271 10^3/uL (130-400); Red Cell Dist. Width 12.1 % (11.5-14.5)
[2025-04-28 08:49] LABS: Blood Urea Nitrogen 6 mg/dl (7-17); Calcium 9.1 mg/dl (8.4-10.2); Carbon Dioxide 26 mmol/L (22-30); Chloride 111 mmol/L (98-107); Estimated Creatinine Clearance 102 ml/min; Glucose 112 mg/dl (70-99); Potassium 4.2 mmol/L (3.5-5.1); Sodium 142 mmol/L (135-145); eGFR > 60.00
--- NOTE | 2025-04-28 08:54 | PHA.VAN.FU ---
Vancomycin Assessment / Plan
- Assessment
Renal Function: SCR Decreasing
WBC's are: WNL
In the past 24 hrs, patient has been: Afebrile
Concomitant Antimicrobials: piperacillin/tazobactam
- Dosing Plan
Continue: vancomycin 1500 mg Q12H
- Monitoring Plan
No level(s) ordered at this time: consider levels in next few days
- Follow Up
Pharmacy will continue to follow.
Vancomycin Follow UP
- -
Patient Age: 64
Patient Sex: Female
Vancomycin Day #: 5
Indication: Skin And Soft Tissue
Requesting Provider: Dr. Jimenez / Yaw
Pertinent Antimicrobial Allergies:
no pertinent antibiotic allergies
Height / Weight:
Height 5 ft 9 in
Actual Weight 78.642 kg
Pertinent Past Medical History: DM, Laminectomy (February 2025)
- Vital Signs / Lab Results
Temp Pulse Resp BP Pulse Ox
98.4 F 87 18 104/56 96
04/27/25 23:08 04/27/25 23:08 04/27/25 23:08 04/27/25 23:08 04/27/25 23:08
Lab Results - Hematology
04/26/25 04/27/25 04/28/25
06:43 07:16 07:27
WBC 5.2 5.2 6.1
Lab Results - Chemistry
04/25/25 04/26/25 04/27/25
08:22 06:43 07:16
BUN 6 L 6 L 7
Creatinine 0.5 L 0.5 L 0.4 L
Estimated Creat Clear 102 102 102
04/28/25
07:27
BUN 6 L
Creatinine 0.4 L
Estimated Creat Clear 102
Microbiology Results
04/23/25 23:50 Blood Culture - Preliminary
Blood/Venous No Growth in 4 days- Final report to follow
04/23/25 23:15 Blood Culture - Preliminary
Blood/Venous No Growth in 4 days- Final report to follow
04/24/25 17:30 Wound Culture - Preliminary
Lumbar Gram Stain - Preliminary
04/24/25 17:30 Anaerobic Culture - Preliminary
Lumbar Culture pending. Anaerobic cultures are examined after 3
days incubation. Additional information to follow.
04/24/25 02:40 Wound Culture - Final
Surgical Wound Gram Stain - Final
04/24/25 02:40 Wound Culture - Final
Surgical Wound Gram Stain - Final
Therapeutic Drug Monitoring
Vancomycin Peak 15.3 ug/ml (18-26) L 04/26/25 21:45
Vancomycin Trough 7.4 ug/ml (5-20) 04/27/25 07:16
[2025-04-28 09:01] LABS: C-Reactive Protein 22.00 mg/L (0.0-10.00)
--- NOTE | 2025-04-28 09:55 | W.PN.HOSP.TC ---
Today's Communication/Plan
-
Continue antibiotics
Follow OR cultures
Assessment / Plan
Assessment / Plan
#Sepsis secondary to purulent surgical site infection
#S/p recent laminectomy L2-4
-Underwent lumbar spinal fusion in March; developed purulent drainage from the site
-Presented with leukocytosis, hypotension, tachycardia; observed purulent drainage from incision
-Was started on IV vancomycin and Zosyn empirically following cultures; s/p OR washout 04/24/2025
-Remains on broad-spectrum antibiotics, consult ID for further guidance on duration and stepdown therapy
-Trend CBC and temperature curve, follow cultures
-Monitor output from wound VAC, local wound care
-Continue with as needed analgesics
#Postoperative ABLA
-Hemoglobin dropped from normal range to 11.2 following an OR washout on 04/24, repeat Hgb 11.7
-Eliquis held perioperatively, resumed 04/26 with stable hemoglobin thereafter
-Trend CBC, PRBC for hemoglobin <7 or anemic symptoms
#Ankylosing spondylitis
#Immunocompromise status
-Home regimen includes adalimumab 40 mg every 2 weeks; known HLA-B27 positivity
-Holding biologic agent in the context of active infection, suspect immunocompromise contributed
-Will need to follow-up OP with rheumatology after discharge
#DUANE on CPAP
-No known history of pulmonary hypertension
-Reported compliant with CPAP
#NIDDM
-Home regimen includes Jardiance and tirzepatide; recent A1c 5.9%
-Takes gabapentin for diabetic neuropathy; no other microvascular disease
-Was transition to ISS upon arrival, BG goal 140-180
#Dyslipidemia
-No known ASCVD history, home regimen includes moderate intensity statin
#H/O DVT
-Home regimen includes Eliquis 2.5 mg twice daily
-Unclear etiology, no known hypercoagulable state or other thrombotic history
Diet: Cholesterol-lowering
DVT prophylaxis: SCDs, Eliquis this evening
CODE STATUS: Full code
Disposition: Consult PT
Anticipated Discharge: 24 - 48 hours
Subjective/Interval History
-
Date of Service: April 28, 2025
Seen and examined at the bedside. No acute events reported overnight. AFVSS this morning
Patient was walking the halls today with issues. Pain well-controlled. Cultures pending
Denies any new complaints
Objective Data
-
Labs:
Laboratory Results
04/28/25
07:27
WBC 6.1
Hgb 12.1
Hct 36.4 L
Plt Count 271
Sodium 142
Potassium 4.2
Chloride 111 H
Carbon Dioxide 26
BUN 6 L
Creatinine 0.4 L
Glucose 112 H
Calcium 9.1
Vital Signs:
Vital Signs
Temp Pulse Resp BP Pulse Ox
98.1 F 87 16 101/68 96
04/28/25 07:00 04/28/25 07:00 04/28/25 07:00 04/28/25 07:00 04/28/25 07:00
I&O
04/27/25 04/28/25 04/29/25
06:59 06:59 06:59
Intake Total 820 / 820 1080 / 1080
Output Total 50 / 50
Balance 770 / 770 1080 / 1080
Review of Systems
-
History Source: Patient
All other systems: Reviewed and negative
Physical Exam
-
General: Well Developed, Well Nourished and No Apparent Distress
HEENT: Normocephalic, Atraumatic and Moist Mucous Membranes
Respiratory: Clear to Auscultation and Non Labored Respirations; Negative Accessory Resp Muscle Use
Cardiac: Regular Rhythm and S1/S2; Negative Murmur, Rub or Gallop
GI: Soft, Nontender, Nondistended and Normal Bowel Sounds
Musculoskeletal: No Clubbing, No Cyanosis, No Edema and Normal Gait & Station
Skin: Warm, Dry and Other (Wound VAC lumbar spine, red-tinged output); Negative Rash
Neuro: AO x 3, Nonfocal/Grossly Intact and Central Nerve's Intact
Psych: Calm
Data Reviewed
-
Labs: Labs Reviewed by me and Discussed with Patient
[2025-04-28] MEDS: VISBIOME 2 CAP PO (10:33)
[2025-04-28 12:44] LABS: Glucose - Point of Care 114 mg/dl (70-99)
[2025-04-28 15:00] VITALS: BP 111/71
[2025-04-28 16:02] LABS: Glucose - Point of Care 203 mg/dl (70-99)
[2025-04-28] MEDS: NOVOLOG FLEXPEN-LOW RESISTANCE 2 UNITS SC (16:06)
--- NOTE | 2025-04-28 16:32 | W.PN.ID1 ---
Date of Service
Date of Service: April 28, 2025
Today's Communication
- OK to dc home on Augmentin 875mg po bid x 10 more days.
Assessment / Plan
# Post-op skin and soft tissue
( Recent laminectomy/fusion 04/18/25)
# Fever resolved
# Leukocytosis resolved
# Ankylosing spondylitis on biologic
# DM
- 8/5 s/p I+D to deep fascia; no exposure of implant
-OR cx's prelim coag-neg staph
I spoke to micro, only coag-neg staph growing; suspect skin jennie rather than infection
- Can dc Vanco/Zosyn (d5)
- OK to dc home on Augmentin 875mg po bid x 10 more days.
Chief Complaint
-: Cellulitis
Subjective / Review of Systems
Feeling better. Wants to go home soon.
Vital Signs / Physical Exam
Vital Signs
Vital Signs
Temp Pulse Resp BP Pulse Ox
98.1 F 87 16 101/68 96
04/28/25 07:00 04/28/25 07:00 04/28/25 07:00 04/28/25 07:00 04/28/25 07:00
Physical Exam
Constitutional: No Acute Distress and Comfortable
Cardiovascular: Regular Rate and S1/S2
Pulmonary: Clear
Gastrointestinal: Soft and Non Tender
Wound: Other (lumbar wound vac in place)
Neurological: AO x 3
Objective Data
Lab Data
Lab Results
04/28/25 07:27
04/28/25 07:27
Estimated Creat Clear 102 ml/min 04/28/25 07:27
Lactic Acid Cancelled 04/24/25 03:15
Total Bilirubin 0.9 mg/dl (0.2-1.3) 04/23/25 23:15
AST 27 U/L (14-36) 04/23/25 23:15
ALT 39 U/L (0-35) H 04/23/25 23:15
Alkaline Phosphatase 188 U/L (38-126) H 04/23/25 23:15
C-Reactive Protein 22.00 mg/L (0.0-10.00) H 04/28/25 07:27
Most recent labs reviewed.
Micro Results:
04/24/25 17:30 Anaerobic Culture - Preliminary
Lumbar Culture pending. Anaerobic cultures are examined after 3
days incubation. Additional information to follow.
04/23/25 23:50 Blood Culture - Preliminary
Blood/Venous No Growth in 4 days- Final report to follow
04/23/25 23:15 Blood Culture - Preliminary
Blood/Venous No Growth in 4 days- Final report to follow
04/24/25 17:30 Wound Culture - Preliminary
Lumbar Gram Stain - Preliminary
04/24/25 02:40 Wound Culture - Final
Surgical Wound Gram Stain - Final
04/24/25 02:40 Wound Culture - Final
Surgical Wound Gram Stain - Final
04/24/25 14:28 MRSA Screen - Final
Nose No Methicillin Resistant Staphylococcus aureus isolated.
04/24/25 17:30 Fungal Culture - Preliminary
Lumbar Culture in progress.
Positive cultures are reported as soon as detected.
Final report to follow in four to five weeks.
04/24/25 CT lumbar spine: Evaluation overall markedly limited as a result of beam hardening artifact from metal hardware in the mid to lower lumbar spine.
Subcutaneous emphysema and fluid in the dorsal cutaneous soft tissues at the surgical site extending from L2 to L4 level, extended period of time since surgery of March 19, 2025 suggests the possibility of severe inflammatory/infectious process.
Consider contrast-enhanced MRI of the lumbar spine and also suggest spine surgical consultation.
Care Review
Plan reviewed with: Physician (Dr. alejo)
--- NOTE | 2025-04-28 16:43 | W.DCSUMMARY ---
Discharge Summary
Discharge Data
Date of Admission: 04/24/25
Date of Discharge: 04/28/25
Total time spent discharging patient (in min): 34
-
Pending Results: No
Hospital Course
Discharging Physician : Brandt Storey DO
Disposition : Home
Principal Discharge diagnosis :
Postoperative surgical site infection
Status post lumbar laminectomy
Chronic Discharge diagnosis :
Ankylosing spondylitis on Amjevita
NIDDM with neuropathy
DUANE on CPAP
GERD
History of DVT on Eliquis
Hospital Course :
64-year-old female who presented to the hospital with pain and purulent drainage from surgical site of the lumbar spine roughly 1 month following laminectomy of L2-L4 with neurosurgery. Concern for surgical site infection. Blood cultures were
obtained and she was started on broad-spectrum IV antibiotics with IV vancomycin and Zosyn. Was evaluated by surgery who recommended OR washout with orthopedics. Was taken to the OR on 04/24/2025 and orthopedics completed surgical washout and placed
wound VAC. Was continued on broad-spectrum antibiotics while awaiting blood and wound cultures. Blood cultures ultimately negative x 2. Wound cultures came back positive for skin jennie. Infectious disease was consulted and followed during
hospitalization. Following final culture results recommended transition to oral Augmentin for an additional 10 days of antibiotics. Patient was discharged on 04/28/2025. Recommended to follow-up in office with family doctor within 1 week,
orthopedic surgeon within 1 week. Home wound VAC was provided.
Consultants:
Infectious disease: Maria Fernanda Tidwell MD
Orthopedic surgery/spinal surgery: Rojas Gentile MD
Important imaging findings:
CT lumbar spine with IV contrast (04/24/2025)
IMPRESSION: Evaluation overall markedly limited as a result of beam hardening artifact from metal hardware in the mid to lower lumbar spine. Subcutaneous emphysema and fluid in the dorsal cut
Procedure findings :
Lumbar spine incision and drainage, placement of wound VAC (04/24/25)
DESCRIPTION OF PROCEDURE: She was taken to the operating room and placed under general anesthesia. She was placed on Charli table in the prone position with the bony prominences padded. After sterile prepping and draping, a time-out was performed.
Incision was made in one of the old incisions. The middle incision which included the right-sided screws was dissected. There was no gross purulence that was seen. However, there was some necrotic tissue. I did take cultures including anaerobic and
aerobic cultures, fungal, AFB and this was sent to the lab. Copious irrigation was performed. This was deep to the fascia. The implants were not exposed. Betadine was used, as was several litres of normal saline through Pulsavac. The left-sided
incision was also incised and there was no fascial defect there. Next, a VAC was placed in the lumbar spine due to the tissues not being that good and it was placed on suction. She was then taken to PACU in stable condition.
Follow-up:
-Family doctor within 1 week of discharge
-Spinal surgeon within 1-2 weeks of discharge
-Prescription sent for 10 days of Augmentin 875-125 mg at discharge
Discharge Plan
-
Patient Disposition: Home (Routine Discharge)
Discharge Diagnosis/Procedures: Postoperative infection
Status post lumbar laminectomy
Status post surgical wound washout
Condition: Fair
Diet: No restrictions
Activity: As tolerated
Driving Restrictions: No driving for 24 hours
Bathing Restrictions: Keep area of wound VAC sterile
Activity Restrictions/Additional Instructions:
Wound Care Instructions
Lumbar wound vac therapy-clean with saline, use adaptic with black foam, Change every 48 - 72 hours (i. e. Crtrqaq-[id number]) and prn if unable to obtain a seal. Low Intensity, Continuous at 125 mmHg. Upon discharge or transfer to another
facility, remove VAC foam and apply NS moistened gauze dressing unless home VAC unit available.
Call or [employer] support 12/04 [phone] for vac pump problems or concerns.
Follow up with spine surgeon Dr. Gentile.
Referrals:
Gurjit Lepe Jr., DO [Family Provider, Internal Medicine]
Rojas Gentile MD [Active, Orthopedics] - in less than 1 week
Additional Discharge Medication Instructions: Continue Augmentin 875-125 mg every 12 hours for 10 more days after discharge
Use probiotic while on antibiotics (can be purchased [id number])
Do not take Amjevita until you are done with your antibiotic course
Prescriptions:
New
Lactobac/Bifidobac [Visbiome]
2 cap PO DAILY 10 Days Qty: 10 0RF
amoxicillin-pot clavulanate 875-125 mg tablet
1 tab PO Q12H 10 Days Qty: 20 0RF
Continued
atorvastatin 10 MG tablet
10 mg PO QPM
Eliquis 2.5 MG tablet
2.5 mg PO BID
Jardiance 10 MG tablet
10 mg PO DAILY
ascorbic acid (vitamin C) [Vitamin C] 500 MG tablet
500 mg PO DAILY
hydrocodone-acetaminophen 10-325 mg Tablet
1 tab PO BIDPRN PRN (Reason: severe pains)
pregabalin [Lyrica] 75 mg Capsule
75 mg PO BID
cholecalciferol (vitamin D3) [Vitamin D3] 25 mcg (1,000 unit) Tablet
25 mcg PO DAILY
Mounjaro 2.5 mg/0.5 mL Pen Injector
2.5 mg SC WE
Rx Instructions:
for 4 weeks
duloxetine 20 mg Capsule,Delayed Release(Dr/Ec)
20 mg PO BID
Held
Amjevita(CF) Autoinjector 40 mg/0.4 mL Auto-Injector
40 mg SC Q2W
Hold Instructions: Until completed with antibiotic course
Discontinued
acetaminophen [Tylenol] 325 mg Tablet
650 mg PO Q6HPRN PRN (Reason: mild pain)
Discharge Orders:
Discharge Patient (As Directed); Ordered 08/09/25
Ordered By: Brandt Storey
Discharge Date and Time
Print Language: ESTONIAN
[2025-04-28] MEDS: VANCOCIN IV (17:04)
--- NOTE | 2025-04-30 07:07 | WOUNDNOTE ---
WOC RN note: Notified [employer] via [employer] therapy portal of stop bill date as of 04/28/25 and bean picker (work order # [id number]).
--- NOTE | 2025-04-30 13:30 | WOUNDNOTE ---
Faxed the patient signed proof of delivery form to Joyce Marte from [facility] this am. Joyce confirmed she received the fax.
== END 2025-04-28 18:41 | disposition home health service (06) | DRG 862 ==
LOC: 4 WEST ACU 05:13
PROVIDERS: ADMITTING PHYSICIAN Internal Medicine; ATTENDING PHYSICIAN Internal Medicine; CONSULT PHYSICIAN Internal Medicine Infectious Disease; CONSULT PHYSICIAN Orthopaedic Surgery Orthopaedic Surgery of the Spine; EMERGENCY PHYSICIAN Emergency Medicine; FAMILY PHYSICIAN Family Medicine
PROC: F08G5YZ Wound Management Treatment of Integumentary System - Lower Back / Lower Extremity using Other Equipment (ICD-10-PCS; 2025-04-24)
PROC: 5A09357 Assistance with Respiratory Ventilation, Less than 24 Consecutive Hours, Continuous Positive Airway Pressure (ICD-10-PCS; 2025-04-24)
PROC: 0J970ZZ Drainage of Back Subcutaneous Tissue and Fascia, Open Approach (ICD-10-PCS; 2025-04-24)
DX: T81.41XA Infection following a procedure, superficial incisional surgical site, initial encounter (principal); A41.9 Sepsis, unspecified organism; T81.31XA Disruption of external operation (surgical) wound, not elsewhere classified, initial encounter; T79.7XXA Traumatic subcutaneous emphysema, initial encounter; D84.9 Immunodeficiency, unspecified; D62 Acute posthemorrhagic anemia; E86.0 Dehydration; I95.9 Hypotension, unspecified; Y83.8 Other surgical procedures as the cause of abnormal reaction of the patient, or of later complication, without mention of misadventure at the time of the procedure; Y92.9 Unspecified place or not applicable; M45.9 Ankylosing spondylitis of unspecified sites in spine; E11.36 Type 2 diabetes mellitus with diabetic cataract; E78.2 Mixed hyperlipidemia; K21.9 Gastro-esophageal reflux disease without esophagitis; J30.9 Allergic rhinitis, unspecified; M19.90 Unspecified osteoarthritis, unspecified site; E55.9 Vitamin D deficiency, unspecified; K58.9 Irritable bowel syndrome, unspecified; M06.9 Rheumatoid arthritis, unspecified; G47.33 Obstructive sleep apnea (adult) (pediatric); Z86.718 Personal history of other venous thrombosis and embolism; Z79.01 Long term (current) use of anticoagulants; Z87.19 Personal history of other diseases of the digestive system; Z90.49 Acquired absence of other specified parts of digestive tract; Z88.5 Allergy status to narcotic agent; Z79.85 Long-term (current) use of injectable non-insulin antidiabetic drugs; Z79.84 Long term (current) use of oral hypoglycemic drugs; Z98.1 Arthrodesis status; Z79.4 Long term (current) use of insulin
CPT/HCPCS: 72132; 80048; 80053; 80202; 81003; 82962; 83605; 85025; 86140; 87040; 87070; 87075; 87102; 87147; 87205; 93005

== ENCOUNTER 2025-05-13 16:25 | Inpatient (IN) | payer BC, SELFPAY ==
[2025-05-13] VITALS (9 sets, daily range): BP systolic 91–111; BP diastolic 51–79; BMI 27.8; BMI 26.0
--- NOTE | 2025-05-13 13:56 | ED.GENMED ---
History of Present Illness
General
Chief Complaint: Back Pain
Time Seen by Provider: 05/13/25 13:46
History of Present Illness
History of Present Illness:
64-year-old female presents to the emergency department for evaluation of fever and low back pain. Patient underwent a lumbar laminectomy and fusion procedure by spine surgery earlier this summer that was complicated by postoperative wound
dehiscence and surgical wound infection. She was admitted to this hospital in April where she underwent an incision and drainage and wound VAC placement. She was treated with IV antibiotics but is no longer on antibiotics at this point. She has
been compliant with her wound VAC and yesterday developed fever of 102 Fahrenheit. She denies upper respiratory tract symptoms, sore throat, cough, shortness of breath, or dysuria. 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
Past History
Past History
ED Past Medical History: Other (Ankylosing spondylitis)
ED Past Surgical History: None
Social History
Tobacco: Non-smoker
Alcohol: None
Review of Systems
Review of Systems
Allergies reviewed?: Yes
All Other Systems: ROS reviewed and negative except as documented in HPI and ROS
Phy Exam
Physical Exam
Physical Exam:
GEN: Well appearing, NAD, WDWN
HEENT: Oral mucosa moist, no scleral icterus, no oropharyngeal erythema or purulence
Cardiac: Regular rate and rhythm
Lung: No respiratory distress, no tachypnea, lungs clear to auscultation
MSK: No gross deformity or injuries. Wound VAC in place to the lumbar spine wound, not removed
Skin: Good color, no pallor or jaundice, no rashes
Neuro: AO x3, moves all extremities freely
Psych: Calm, cooperative
Course
Orders/Labs/Results
Orders:
Orders
05/13/25 14:04
CRP [C-Reactive Protein] Urgent
Complete Blood Count/With Diff Urgent
Comprehensive Metabolic Panel Urgent
Blood Culture Q30M
BRIE Source: Blood/Venous
Specimen Description:
Blood Culture Q30M
BRIE Source: Blood/Venous
Specimen Description:
05/13/25 14:05
COVID-19 Antigen Urgent
Source: Nasal Swab
Lactic Acid Q4H
Comment: CANCEL 2nd LACTIC ACID IF 1st LACTIC ACID IS LESS THAN 2
Influenza A+B Rapid Molecular Urgent
BRIE Source: Nasal Swab
Specimen Description:
05/13/25 14:12
0.9% Sodium Chloride 1000 ml [Nss] 1,000 ml IV BOLUS
05/13/25 Dinner
Regular
At Your Request: Full Participation
Does patient need a safe tray?: No
05/13/25 15:17
Acetaminophen [Tylenol] 650 mg PO NOW STA
Hydrocodone 5/APAP 325 [Sumner 5/325] 1 tablet PO NOW STA
05/13/25 15:50
Admit/Transfer Patient As Directed
Co-Sign Provider:
Level of Care: Inpatient admission
Assign to:: Medical/Surgical
Physician / Group: marcelo
Diagnosis: wound infection
Reason for Hospitalization: wound infection
Expected length of stay greater than two midnights?: Yes
ELOS- Estimated Length of Stay in days: 2
I certify the patient meets the requirements for IP care: Yes
PRN Pain Medication Management As Directed
May give lesser potent ordered pain med per pt: Yes
preference::
Protocol:: Medication orders for pain may be administered in a
manner that supports deferring to patient preference
when the pt is:
- Requesting an ordered lesser potent pain medication.
Least to most potent pain medications are defined
as: acetaminophen < NSAID < tramadol < opioids
(morphine, oxycodone, hydromorphone).
- Requesting a lesser dose of the same medication IF
ORDERED.
- Requesting a less intrusive route of administration
if both routes are prescribed by the provider (PO <
IV).
05/13/25 15:51
Code Status As Directed
Resuscitation Status: Full Code
05/13/25 15:54
Ondansetron Injectable [Zofran] 4 mg .ROUTE .STK-MED ONE
05/13/25 15:55
Ondansetron Injectable [Zofran] 4 mg IV NOW STA
05/13/25 16:18
Urinalysis Reflex To Culture Urgent
Date Specimen was Collected: 05/13/25
Time Specimen was Collected: 16:15
Urine Microscopic Reflex Cult Urgent
Urine Culture Urgent
BRIE Source: U
Specimen Description:
Obtained by: Random
Date Specimen was Collected: 05/13/25
Time Specimen was Collected: 16:15
05/13/25 17:18
Acetaminophen [Tylenol] 650 mg PO Q4HPRN PRN
Dextrose 50%-Water [Dextrose 50% Syringe] 12.5 grams IV [id number] PRN
Glucagon [GlucaGen] 1 mg IM PRN PRN
HYDROmorphone [Dilaudid] 0.5 mg IV Q4HPRN PRN
Insulin Aspart Corrective Low [Novolog Flexpen-Low Resistance] See Protocol SC AC
05/13/25 17:18
INFECTIOUS DISEASE CONSULT Routine
Consulting Provider: Maria Fernanda Tidwell
Was physician already notified: Yes
Neurosurgery Consult Routine
Consulting Provider: Rojas Gentile
Was physician already notified: Yes
MR Lumbar W/o & With Contrast Routine
Comment:
Reason For Exam: wound ifnection, osteo spine
Recent pill cam endoscopy?: No
Activity As Directed
Activity Level: As Tolerated
Bedside Glucose Monitoring As Directed
Frequency: AC&HS
Additional Instructions:: Change to q6h if pt on TPN, tube feeding or not eating
Vital Signs As Directed
Frequency: Per unit guidelines
Cpap [RESP] Routine
Patient to use own unit?: Yes
DX Deep Vein Thrombosis Video Routine
05/13/25 17:53
Nystatin Suspension [Mycostatin Oral Suspension] 5 ml PO QIDPRN PRN thrush
05/13/25 18:25
Hydrocodone 5/APAP 325 [Sumner 5/325] 2 tablet PO BIDPRN PRN
05/13/25 20:00
Duloxetine Delayed Release [Cymbalta Delayed Release] 20 mg PO BID
Heparin 5,000 units SC Q12
05/13/25 22:00
Ondansetron Injectable [Zofran] 4 mg IV Q6HPRN PRN
05/14/25 06:00
Complete Blood Count/With Diff IN AM
Comprehensive Metabolic Panel IN AM
Glycohemoglobin (HgbA1c) IN AM
05/14/25 08:00
Ascorbic Acid [Vitamin C] 500 mg PO DAILY
Atorvastatin [Lipitor] 20 mg PO DAILY
Cholecalciferol (Vitamin D3) [VITAMIN D3 (cholecalciferol)] 25 mcg PO DAILY
Dapagliflozin [Farxiga] 10 mg PO DAILY
Lactobac/Bifidobac [Visbiome] 1 cap PO DAILY
Vitamin B Complex with C [B COMPLEX w/VITAMIN C] 1 caplet PO DAILY
Abnormal Lab Results
05/13/25 05/13/25
14:04 16:18
RBC 4.09 L 10^6/uL
(4.20-5.40)
Absolute Neuts (auto) 7.5 H 10^3/uL
(1.4-6.5)
Absolute Monos (auto) 1.0 H 10^3/uL
(0.1-0.6)
Lymphocytes % 19.8 L %
(20.5-51.1)
Monocytes % 9.6 H %
(1.7-9.3)
Creatinine 0.4 L mg/dL
(0.6-1.0)
Glucose 136 H mg/dl
(70-99)
Alkaline Phosphatase 130 H U/L
(38-126)
C-Reactive Protein 56.50 H mg/L
(0.0-10.00)
Leukocyte Esterase Rfl 1+ A
(Negative)
Urine Bacteria (Reflex) Few A
(Negative)
Urine Glucose 4+ A
(Negative)
05/13/25 14:04
05/13/25 14:04
Vital Signs
Initial and Last Documented VS:
Initial Vital Signs
Temp Pulse Resp BP Pulse Ox
98.0 F 102 16 108/79 98
05/13/25 13:09 05/13/25 13:09 05/13/25 13:09 05/13/25 13:09 05/13/25 13:09
Last Documented Vital Signs
Temp Pulse Resp BP Pulse Ox
99.2 F 94 16 91/54 98
05/13/25 17:23 05/13/25 17:23 05/13/25 17:23 05/13/25 17:23 05/13/25 17:23
MDM/Problems Addressed
MDM/Problems Addressed:
Patient will be admitted to the hospitalist service, will avoid empiric antibiotics given that she is stable with a normal white count until further assessment given concern for vertebral osteomyelitis
*Pulse Oximetry
SaO2: 99
Oxygen Mode of Delivery: Room air
Patient hypoxic: no
*Critical Care Note
Total Time (30-74mins, 75-104mins- exclusive of procedures): Not Applicable
ED Attending Note
-
Portions of this chart may have been created with voice recognition software.� Occasional wrong word or��sound alike� substitutions may have occurred due to the inherent limitations of voice recognition software.
Discharge Plan
Departure
Patient Disposition: Admit
Date of Disposition: 05/13/25
Time of Disposition: 15:23
Admit to: Med/Surg
Presentation/result/management discussed w/ accepting MD/DO: Hospitalist
Discharge Problem:
Fever, R/O Osteomyelitis of Spine
Interventions
Interventions:
*Risk Screen - Suicide Last Done: 05/13/25 13:09
*General Assessment Last Done: 05/13/25 13:36
*Neglect/Abuse Screening Last Done: 05/13/25 13:09
*ED- Fall Risk Assessment Last Done: 05/13/25 13:36
*ED COVID-19 Vaccine History Last Done: 05/13/25 13:36
*Nursing Disposition Last Done: 05/13/25 17:09
ED-Musculoskeletal Assessment Last Done: 05/13/25 13:36
Discharge Date and Time
Discharge Date/Time: 05/13/25 17:09
[2025-05-13 14:24] LABS: Hematocrit 37.2 % (37.0-47.0); Hemoglobin 12.5 g/dL (12.0-16.0); Mean Corp Hgb Conc. 33.6 g/dL (33.0-37.0); Mean Corpuscular Volume 91.0 fL (81.0-99.0); Nucleated Red Blood Cells % 0 %; Platelet Count 274 10^3/uL (130-400); Red Cell Dist. Width 12.2 % (11.5-14.5)
[2025-05-13] MEDS: NSS 1000 IV (14:27)
[2025-05-13 14:34] LABS: COVID-19 Antigen Negative (Negative)
[2025-05-13 14:37] LABS: ALT (SGPT) 14 U/L (0-35); AST (SGOT) 16 U/L (14-36); Albumin 3.8 g/dl (3.5-5.0); Alkaline Phosphatase 130 U/L (38-126); Blood Urea Nitrogen 10 mg/dl (7-17); Calcium 9.4 mg/dl (8.4-10.2); Carbon Dioxide 23 mmol/L (22-30); Chloride 107 mmol/L (98-107); Estimated Creatinine Clearance 98 ml/min; Glucose 136 mg/dl (70-99); Potassium 3.9 mmol/L (3.5-5.1); Sodium 135 mmol/L (135-145); Total Protein 6.4 g/dl (6.3-8.2); eGFR > 60.00
[2025-05-13 14:41] LABS: C-Reactive Protein 56.50 mg/L (0.0-10.00)
[2025-05-13] MEDS: NORCO 5/325 1 TABLET PO (15:24)
[2025-05-13] MEDS: TYLENOL 650 MG PO ×2 (15:24→23:33)
[2025-05-13] MEDS: ZOFRAN 4 MG IV (15:55)
--- NOTE | 2025-05-13 15:57 | HPS.HSE ---
Family Physician
-
Family Physician: Gurjit Lepe Jr.
Chief Complaint
-
fever
History of Present Illness
64-year-old female past medical history of laminectomy of L2-L4/spinal fusion on 04/18 complicated by surgical site infection status post OR washout on 04/24 with wound VAC, ankylosing spondylitis, obstructive sleep apnea on CPAP, diabetes,
hyperlipidemia, DVT on Eliquis, presenting for fever up to 102 over the past few days. She has nausea without vomiting. No abdominal pain. No diarrhea.
Patient was recently admitted after she had lumbar laminectomy and fusion on 04/18 complicated by postoperative wound dehiscence and surgical wound infection status post OR washout on 04/24 and wound VAC placement.
She currently has a wound VAC and drainage has been decreasing. She has ongoing pain from the wound VAC but denies worsening pain. Denies any neurological symptoms such as numbness or tingling. She has headache and bodyaches and chills.
Denies smoking or alcohol use.
Medical History
Past Medical History
Past Medical History: Reports Other ( laminectomy of L2-L4/spinal fusion on 04/18 complicated by surgical site infection status post OR washout on 04/24 with wound VAC, ankylosing spondylitis, obstructive sleep apnea on CPAP, diabetes, hyperlipidemia,
DVT on Eliquis)
Past Surgical History: Reports None
Social History
Tobacco: Non-smoker
Alcohol: None
Drug: None
Family History
Family History: Not pertinent
Allergies / Home Medications
Allergies reflects when Allergies were last updated in [facility].
Home Medications with original date entered in [employer]
Allergy/Medication List:
Allergies
Allergy/AdvReac Type Severity Reaction Status Date / Time
etanercept (From Enbrel) Allergy Swelling Verified 05/13/25 13:12
oxycodone Allergy Hives Verified 05/13/25 13:12
Home Medications
apixaban 2.5 mg tablet (Eliquis) 2.5 mg PO BID Blood clot prevention/tx 02/05/20
ascorbic acid (vitamin C) 500 mg tablet (Vitamin C) 500 mg PO DAILY Supplement 02/05/20
empagliflozin 10 mg tablet (Jardiance) 10 mg PO DAILY Diabetes 02/05/20
cholecalciferol (vitamin D3) 25 mcg (1,000 unit) tablet (Vitamin D3) 25 mcg PO DAILY Supplement 04/24/25
duloxetine 20 mg capsule,delayed release 20 mg PO BID Depression 04/24/25
hydrocodone 10 mg-acetaminophen 325 mg tablet 1 tab PO BIDPRN PRN severe pains 04/24/25
Lactobac no.2-Bifidobac no.1-S. thermo 112.5 billion cell capsule (Visbiome) 1 cap PO DAILY 05/13/25
atorvastatin 20 mg tablet 20 mg PO DAILY 05/13/25
nystatin 100,000 unit/mL oral suspension 4 ml mucous membrane QIDPRN PRN thrush 05/13/25
tirzepatide 5 mg/0.5 mL subcutaneous pen injector (Mounjaro) 5 mg SC WE 05/13/25
vitamin B complex 1 tab PO DAILY 05/13/25
Review of Systems
-
History Source: Patient
A 12 point ROS was completed and negative except as noted: Yes
Constitutional: Reports No Symptoms
EENT: Reports No Symptoms
Respiratory: Reports No Symptoms
Cardiac: Reports No Symptoms
Abdomen/GI: Reports No Symptoms
: Reports No Symptoms
Musculoskeletal: Reports See HPI
Skin: Reports No Symptoms
Neurological: Reports No Symptoms
Endocrine: Reports No Symptoms
Hematologic/Lymphatic: Reports No Symptoms
Psych: Reports No Symptoms
Physical Exam
Vital Signs
Vital Signs
Temp Pulse Resp BP Pulse Ox
98.6 F 102 16 111/74 98
05/13/25 14:43 05/13/25 15:45 05/13/25 15:45 05/13/25 15:00 05/13/25 15:30
Physical Exam
General: Well Developed, Well Nourished and No Apparent Distress
HEENT: NormoCephalic, Moist mucous membranes and Atraumatic
Respiratory: Clear
Cardiac: S1/S2 and Regular Rhythm; No Murmur or Rub
GI: Soft, Non Tender, Non Distended and Normal Bowel Sounds; No Organomegaly
Rectal: Deferred by Provider
Musculoskeletal: No Clubbing, No Cyanosis and No Edema
Skin: No Rash
Neuro: Nonfocal/grossly intact
Laboratory Results
-
05/13/25 14:04
05/13/25 14:04
Laboratory Results
Lactic Acid Cancelled 05/13/25 18:00
Total Bilirubin 1.1 mg/dl (0.2-1.3) 05/13/25 14:04
AST 16 U/L (14-36) 05/13/25 14:04
ALT 14 U/L (0-35) 05/13/25 14:04
Alkaline Phosphatase 130 U/L (38-126) H 05/13/25 14:04
Data Reviewed
-
Lab Data: Labs Reviewed by me
Old Records: Reviewed
Impression/Plan
-
IMPRESSION:
PLAN:
# Fever concerning for persistent wound infection versus rule out spinal abscess/osteomyelitis
# History of laminectomy L2-L4/spinal fusion on 730 complicated by postoperative wound dehiscence/surgical wound infection status post OR washout on 04/24 with subsequent wound VAC
-Not septic
-IV fluids given
-Check blood cultures
-Check MRI lumbar spine with and without contrast
- Hold off antibiotics until MRI and case biopsy or drainage needed
-Hold Eliquis
-Continue Vicodin
-Tylenol, Dilaudid, Zofran, as needed
- Neurosurgery consulted
- ID consulted
Ankylosing spondylitis
- Humira currently on hold until she follows up with rheumatology
Obstructive sleep apnea
-continue CPAP
Type 2 diabetes
- Continue Jardiance
- On Mounjaro
- Insulin sliding scale
Hyperlipidemia
- Continue statin
History of DVT
-Last DVT in 2016
- On Eliquis, to be held for now
Anxiety/depression
- Continue duloxetine
Full code
DVT prophylaxis�heparin
Regular diet
[2025-05-13 16:25] LABS: Urine Character Slightly Cloudy (Clear)
--- NOTE | 2025-05-13 16:32 | CM ---
CM reviewed chart and met with pt bedside in ED. Lives with her , 2 story home, 4 [address], first floor half BA, second floor BR/full BA.
Independent in ADLs, personal care and ambulation. Currently has wound VAC to back, supplied by [employer] per wound care notes from recent admission.
Current with [facility] for wound vac changes, due for change tomorrow. No hx SNF.
PCP: Veronica Lepe
Pharmacy: [facility]
Anticipate discharge home with [facility], CM will continue to follow.
[2025-05-13 16:36] LABS: Urine Red Blood Cell 0-2 /HPF (0-2)
[2025-05-13] MEDS: NOVOLOG FLEXPEN-LOW RESISTANCE SC (18:07)
[2025-05-13] MEDS: HEPARIN 5000 UNITS SC (20:41)
[2025-05-13] MEDS: CYMBALTA DELAYED RELEASE 20 MG PO (20:41)
[2025-05-14] MEDS: BENADRYL 25 MG PO (04:04)
[2025-05-14] MEDS: DILAUDID 0.5 MG IV ×2 (04:04→10:21)
[2025-05-14 07:28] VITALS: BP 94/62
[2025-05-14 08:18] LABS: Hematocrit 33.4 % (37.0-47.0); Hemoglobin 11.4 g/dL (12.0-16.0); Mean Corp Hgb Conc. 34.1 g/dL (33.0-37.0); Mean Corpuscular Volume 91.3 fL (81.0-99.0); Nucleated Red Blood Cells % 0 %; Platelet Count 248 10^3/uL (130-400); Red Cell Dist. Width 12.1 % (11.5-14.5)
[2025-05-14] MEDS: FARXIGA 10 MG PO (08:19)
[2025-05-14] MEDS: VISBIOME 1 CAP PO (08:19)
[2025-05-14] MEDS: B COMPLEX w/VITAMIN C 1 CAPLET PO (08:19)
[2025-05-14] MEDS: CYMBALTA DELAYED RELEASE 20 MG PO ×2 (08:19→20:05)
[2025-05-14] MEDS: VITAMIN D3 (cholecalciferol) 25 MCG PO (08:19)
[2025-05-14] MEDS: LIPITOR 20 MG PO (08:19)
[2025-05-14] MEDS: HEPARIN 5000 UNITS SC (08:19)
[2025-05-14] MEDS: VITAMIN C 500 MG PO (08:19)
[2025-05-14] MEDS: TYLENOL 650 MG PO ×2 (08:20→20:19)
[2025-05-14] MEDS: NOVOLOG FLEXPEN-LOW RESISTANCE SC ×3 (08:37→17:52)
[2025-05-14 08:42] LABS: ALT (SGPT) 35 U/L (0-35); AST (SGOT) 45 U/L (14-36); Albumin 3.2 g/dl (3.5-5.0); Alkaline Phosphatase 93 U/L (38-126); Blood Urea Nitrogen 8 mg/dl (7-17); Calcium 8.8 mg/dl (8.4-10.2); Carbon Dioxide 25 mmol/L (22-30); Chloride 109 mmol/L (98-107); Estimated Creatinine Clearance 98 ml/min; Glucose 110 mg/dl (70-99); Potassium 4.2 mmol/L (3.5-5.1); Sodium 137 mmol/L (135-145); Total Protein 5.6 g/dl (6.3-8.2); eGFR > 60.00
--- NOTE | 2025-05-14 08:51 | VNURNOTE ---
Chart reviewed. Patient is current with [facility]. Will continue to follow hospital course and DC plans.
[2025-05-14 09:01] LABS: Glucose - Point of Care 151 mg/dl (70-99)
[2025-05-14 09:01] LABS: Glucose - Point of Care 105 mg/dl (70-99)
[2025-05-14 09:01] LABS: Glucose - Point of Care 102 mg/dl (70-99)
--- NOTE | 2025-05-14 09:06 | W.PN.HOSP.TC ---
Today's Communication/Plan
-
For wound closure with plastic surgery tomorrow
Assessment / Plan
Assessment / Plan
HPI: 64-year-old female past medical history of laminectomy of L2-L4/spinal fusion on 04/18 complicated by surgical site infection status post OR washout on 04/24 with wound VAC, ankylosing spondylitis, obstructive sleep apnea on CPAP, diabetes,
hyperlipidemia, DVT on Eliquis, presenting for fever up to 102 over the past few days. She has nausea without vomiting. No abdominal pain. No diarrhea.
Patient was recently admitted after she had lumbar laminectomy and fusion on 04/18 complicated by postoperative wound dehiscence and surgical wound infection status post OR washout on 04/24 and wound VAC placement.
She currently has a wound VAC and drainage has been decreasing. She has ongoing pain from the wound VAC but denies worsening pain. Denies any neurological symptoms such as numbness or tingling. She has headache and body aches and chills. Denies
smoking or alcohol use.
#Fever concerning for persistent wound infection versus rule out spinal abscess/osteomyelitis
#History of laminectomy L2-L4/spinal fusion on 730 complicated by postoperative wound dehiscence/surgical wound infection status post OR washout on 04/24 with subsequent wound VAC
Appreciate neurosurgery input, MRI is negative for osteomyelitis or abscess, no surgical intervention recommended
Continue holding Eliquis. There is concern for discitis, consult IR for biopsy
Appreciate plastics input, plan for closure tomorrow, 05/15
ID consult requested, would defer antibiotics to ID
Continue pain meds, laxatives, trend fever and white count
#Ankylosing spondylitis
Humira currently on hold until she follows up with rheumatology
#Obstructive sleep apnea
Continue CPAP
#Type 2 diabetes
Hold Mounjaro
Continue Jardiance, sliding scale insulin
#Hyperlipidemia
- Continue statin
History of DVT
-Last DVT in 2017
- On Eliquis, to be held for now
Anxiety/depression
- Continue duloxetine
DVT prophylaxis�subcu Lovenox
Full code
Total time spent to see the patient on the floor, examine the patient, review data and lab results, discuss treatment plan with patient, nursing staff around 50 minutes.
Physical Exam
General: No acute distress
HEENT: Normocephalic, Atraumatic, EOMI, MMM
Respiratory: Clear to Auscultation bilaterally
Cardiac: Normal S1/S2, Regular Rate and Rhythm
GI: Soft, Nontender, Nondistended, Normal Bowel Sounds
Msk: Back with lumbar surgical wound noted with wound VAC
Extremities: No Clubbing, Cyanosis, or Edema
Neuro: Nonfocal/Grossly Intact
Anticipated Discharge: > 48 hours
Subjective/Interval History
-
Date of Service: May 14, 2025
Patient reports her back soreness is the same as usual. She was febrile yesterday. No fever, vomiting.
Objective Data
-
Labs:
Laboratory Results
05/14/25
07:45
WBC 7.7
Hgb 11.4 L
Hct 33.4 L
Plt Count 248
Sodium 137
Potassium 4.2
Chloride 109 H
Carbon Dioxide 25
BUN 8
Creatinine 0.4 L
Glucose 110 H
Calcium 8.8
Total Bilirubin 0.8
AST 45 H
ALT 35
Alkaline Phosphatase 93
Vital Signs:
Vital Signs
Temp Pulse Resp BP Pulse Ox
98.7 F 95 16 94/62 99
05/14/25 07:28 05/14/25 07:28 05/14/25 07:28 05/14/25 07:28 05/14/25 07:28
I&O
05/13/25 05/14/25 05/15/25
06:59 06:59 06:59
Intake Total 360 / 360
Output Total 200 / 200
Balance 160 / 160
--- NOTE | 2025-05-14 09:37 | CON.ID ---
Addendum entered and electronically signed by Maria Fernanda Tidwell MD 05/14/25 16:18:
I personally performed a history and physical exam of the patient and discussed management with the resident. I reviewed the resident's note and agree with the documented findings and plan of care HPI/CC.
S: 64-year-old female well-known to me with History of diabetes mellitus, ankylosing spondylitis on biologic, recent lumbar laminectomy/fusion April 18, 2025 with postop skin and soft tissue infection status post I&D without deep infection noted.
Wound culture grew skin jennie. She completed a course of Augmentin. She returned to the hospital due to 2-day history of fevers and chills. No worsening back pain. + itching around vac site. Had headache yesterday. Positive body aches. No
other focal symptoms. No known tick exposure. [place] She developed the fever just after she arrived in the [facility] area.
O: Tm= 100.5
Lumbar wound examined with wound nurse and Dr. Rocha. Large right side lumbar wound with granulating tissue, no deep probe to spine. Positive large surrounding rash from the adhesive.
Imaging:
05/14/25 Lumbar MRI wo and w contrast:
1. ACUTE INFECTIOUS DISCITIS at L3/L4.
2. ACUTE OSTEOMYELITIS in the inferior endplate of L3 and superior endplate of L4.
3. Large 9 cm posterior soft tissue wound in the midline posterior to L3.
4. 3.4 cm subcutaneous ABSCESS posterior to the left L3 pedicle screw.
Assessment
# Acute discitis and osteomyelitis L3/L4
# Soft tissue abscess posterior to L3 pedicle screw
# Fever
# Recent hx lumbar laminectomy/fusion 04/18/25
# Ankylosing spondylitis on Simponi, currently on hold
# Diabetes mellitus on Mounjaro
Plan:
-Blood cultures x 2 negative to date
- UA bland
-Plastics, Dr. Rocha, plans to take the patient to OR for debridement and closure.
Dr. Rocha will obtain deep tissue cultures in the OR.
-In the meantime, continue to hold antibiotic to increase intraoperative culture yield.
- Will also check tickborne illness workup.
- Follow temps.
Case discussed with Drs. Gentile and Aj
Original Note:
Consultation
-
Date/Time Consultation Requested: 05/13/2025 17:18
Date/Time Consultation Performed: 05/14/2025 10:00
Requesting Provider: Jackie Harley
Performing Provider: Aleksander Montejo MD ; Maria Fernanda Tidwell MD
Reason for Consultation: Fever with possible Surgical site infection
Chief Complaint / Past History
Chief Complaint
FEVER
History of Present Illness
This is a 64-year-old female with known past medical history of laminectomy L2-L4/spinal fusion on 04/18, complicated by surgical site infection s/p OR washout on 04/24(I+D to deep fascia; no exposure of implant) with wound VAC, ankylosing spondylitis,
DUANE on CPAP, diabetes, hyperlipidemia, DVT on Eliquis presented with fever of 102 over the past 2 days.
She has been getting wound VAC replacement every 3 days with her last replacement was on Wednesday. She traveled to the [facility] for medication on Wednesday and noticed that she was not feeling well and had a fever of 102 and utilized some Tylenol and
the fever broke. Next day 05/13/2025 she was following not well again and then decided to come visit the emergency department.
Additionally she was recently admitted with similar complaints and was on IV antibiotics(vancomycin and Zosyn for 5 days) during the hospital stay and was discharged on Augmentin for 10 days which she reportedly completed. And the culture was only
showing coagulase-negative staph and was suspected of skin jennie rather than infection.
Denies any other systemic symptoms.
Past History
Past Medical History: Other
Additional Past Medical History:
Diabetes mellitus type 2
Dyslipidemia
Ankylosing spondylitis
History of DVT
IBS
Sleep apnea on CPAP
History of diverticulitis
Past Surgical History: Orthopedic
Additional Past Surgical History:
Lumbar laminectomy/fusion with screws March 19, 2025
Arthroscopy knee(1979)
Hernia repair Ventral Hernia-Abdominoplasty and Herniorhaphy(1995)
Tonsillectomy(1984)
Bilateral tubal ligation(1999)
Cholecystitis-Cholecystectomy(1991)
Torn Medial Meniscus Left Knee-Surgery(1986)
Left Knee/Medial Meniscus Tear-Arthroscopy (1993)
Medial meniscus repair-Surgical repair and removal of ant cruciate ligament (1994)
RT knee surgery - meniscus repair(2013)
Rectocele Prolapse Surgery- Dr Corbin- 04/2020
Right cataract 11/28 Dr Zhang
Allergy History:
etanercept (From Enbrel) Allergy (Verified 05/13/25 13:12)
Swelling
oxycodone Allergy (Verified 05/13/25 13:12)
Hives
Medications Reviewed: Yes
Current Antibiotics:
none
Social History
Tobacco: Non-Smoker
Alcohol: None
Drug: None
Personal:
Family History
Family History: Not Pertinent
Review of Systems
Review of Systems
General: Fever
HEENT: Negative Stiff Neck, Headache or Pharyngitis
Cardiovascular: Negative Chest Pain or Dyspnea
Respiratory: Negative Cough
Gasteroenterology: Negative Nausea, Vomiting or Diarrhea
Genital / Urological: Negative Dysuria or Hematuria
Musculoskeletal: Other (Low back pain)
Skin / Hair / Nails: Negative Rash
Neurological: Negative Seizures
Vital Signs
Temp Pulse Resp BP Pulse Ox
98.7 F 95 16 94/62 99
05/14/25 07:28 05/14/25 07:28 05/14/25 07:28 05/14/25 07:28 05/14/25 07:28
Physical Exam
Physical Exam
Constitutional: Comfortable
Head: Normocephalic
Cardiovascular: Regular Rate and S1/S2
Pulmonary: Clear and Non Labored
Gastrointestinal: Soft, Non Tender and Non Distended
Wound: Other (Lumbar wound, VAC in place, No redness or discharge. Mild tenderness to touch)
Neurological: Awake, Alert and Oriented
Psychological: Calm
Lab / Diagnostic Study Results
05/14/25 07:45
05/14/25 07:45
Abs Immat Gran (auto) 0.0 10^3/uL (0-0.05) 05/14/25 07:45
Absolute Neuts (auto) 4.1 10^3/uL (1.4-6.5) 05/14/25 07:45
Absolute Lymphs (auto) 2.5 10^3/uL (1.2-3.4) 05/14/25 07:45
Absolute Monos (auto) 0.9 10^3/uL (0.1-0.6) H 05/14/25 07:45
Absolute Basos (auto) 0.1 10^3/uL (0-0.2) 05/14/25 07:45
Immature Gran % 0.3 % (0-0.5) 05/14/25 07:45
Neutrophils % 53.1 % (42.2-75.2) 05/14/25 07:45
Lymphocytes % 32.4 % (20.5-51.1) 05/14/25 07:45
Monocytes % 11.5 % (1.7-9.3) H 05/14/25 07:45
Eosinophils % 2.0 % (0-6) 05/14/25 07:45
Basophils % 0.7 % (0-2) 05/14/25 07:45
Lactic Acid Cancelled 05/13/25 18:00
C-Reactive Protein 56.50 mg/L (0.0-10.00) H 05/13/25 14:04
Ur Squamous Epith Cells 3-5 /LPF (Few) 05/13/25 16:18
Microbiology Results
Micro:
05/13/25 16:18 Urine Culture - Pending
Urine
05/13/25 14:05 Influenza Types A & B (ASHLEIGH) - Final
Nasal Swab Negative for Influenza A & B, NAAT
Negative results must be combined with clinical observations
and patient history.
Nucleic Acid Amplification test (NAAT)performed on the
[employer] platform.
05/13/25 14:04 Blood Culture - Pending
Blood/Venous
05/13/25 14:04 Blood Culture - Pending
Blood/Venous
Assessment / Plan
# Fever
# Concern for Post-op skin and soft tissue infection (Recent laminectomy/fusion 04/18/25) 04/24/25 I+D to deep fascia
# Ankylosing spondylitis on biologic; currently on hold
# DM
- 04/24 s/p I+D to deep fascia; no exposure of implant
- 04/24 OR cx's with ;Coagulase-negative Staphylococcus; likely skin jennie, Fungal culture still in process negative to date
- 05/13/25 Blood culture negative to date
- flu negative
- urine culture pending
- we can hold on abx for now until consult with Neurosurg; will consider if there is any concern of infection or plan for any procedure
- Trend temps and WBC.
[2025-05-14 09:57] LABS: Glycohemoglobin (HgbA1c) 6.6 % (4.0-5.6)
--- NOTE | 2025-05-14 12:08 | CON.MD ---
Consultation - Medical
-
Pt s./p lami and wash out on PO abx.
Admitted for fever over weekend and not feeling well
Shes had a vac placed.
Was suppose to see Dr Rohca for closure
Currently in MRI
PT appear to have beginnigs of discitis at L3-4
No Osteo or abscess.
No surgical indication
May need biopsy of disc space though shes been on antibiotics
Will likely need PICC
Will need ID to make recs
Thanks
--- NOTE | 2025-05-14 12:30 | WOUNDNOTE ---
LUMBAR (with photo flash)
--- NOTE | 2025-05-14 12:30 | WOUNDNOTE ---
[facility] RN note: Patient admitted with wound infection. She lives at home and is current with VN. Patient for wound closure tomorrow with Dr. Rocha.
See H&P for complete history.
PMH: From H+P 'Past Medical History: Reports Other ( laminectomy of L2-L4/spinal fusion on 04/18 complicated by surgical site infection status post OR washout on 04/24 with wound VAC, ankylosing spondylitis, obstructive sleep apnea on CPAP, diabetes,
hyperlipidemia, DVT on Eliquis)'
Wound Location and type/assessment: Patient admitted with: full thickness surgical wound lumbar region to muscle, pink with scattered yellow tissue. Skin mild red from vac drape adhesive.
Appetite: good.
Pressure redistribution devices in place: [employer] Accumax. Patient moves self in bed.
Plan: Patient seen with Dr. Rocha and Dr. Tidwell who assessed wound. Plan is OR tomorrow and Dr. Rocha stated can pack wound with saline moistened gauze packing for today. Plan is OR closure tomorrow with possible incisional vac application.
Aj stated he will plan to take wound cultures in the OR. Discussed with ARY Soriano.
Care plan to be updated and will follow peripherally as needed.
--- NOTE | 2025-05-14 12:30 | WOUNDNOTE ---
[facility] RN note: Patient admitted with wound infection. She lives at home and is current with VN. Patient for wound closure tomorrow with Dr. Rocha.
See H&P for complete history.
PMH: From H+P 'Past Medical History: Reports Other ( laminectomy of L2-L4/spinal fusion on 04/18 complicated by surgical site infection status post OR washout on 04/24 with wound VAC, ankylosing spondylitis, obstructive sleep apnea on CPAP, diabetes,
hyperlipidemia, DVT on Eliquis)'
Wound Location and type/assessment: Patient admitted with: full thickness surgical wound lumbar region to muscle or deeper, pink with scattered yellow tissue. Moderate ss drainage. No odor. Back skin with mild redness from vac drape adhesive.
Appetite: good.
Pressure redistribution devices in place: [employer] Accumax. Patient moves self in bed.
Plan: Patient seen with Dr. Rocha and Dr. Tidwell who assessed wound. Plan is OR tomorrow and Dr. Rocha stated can pack wound with saline moistened gauze packing for today. Plan is OR closure tomorrow with possible incisional vac application.
Aj stated he will plan to take wound cultures in the OR. Discussed with ARY Hall.
Care plan to be updated and will follow peripherally as needed.
--- NOTE | 2025-05-14 12:45 | CM ---
Discharge POC: Home with wound vac and resumption of [facility] RN for vac changes.
[2025-05-14 12:49] VITALS: BP 86/52
[2025-05-14 12:49] LABS: Glucose - Point of Care 118 mg/dl (70-99)
[2025-05-14] MEDS: SENOKOT-S 2 TABLET PO (13:06)
[2025-05-14 13:15] VITALS: BP 92/62
[2025-05-14 16:01] VITALS: BP 104/60
[2025-05-14] MEDS: LOVENOX 40 MG SC (17:12)
[2025-05-14 17:24] LABS: Glucose - Point of Care 121 mg/dl (70-99)
[2025-05-14 21:27] LABS: Glucose - Point of Care 139 mg/dl (70-99)
[2025-05-14 23:18] VITALS: BP 102/51
[2025-05-15] VITALS (13 sets, daily range): BP systolic 25–118; BP diastolic 45–62
[2025-05-15 00:11] LABS: Glucose - Point of Care 115 mg/dl (70-99)
[2025-05-15] MEDS: TYLENOL 650 MG PO (03:29)
[2025-05-15 06:28] LABS: Hematocrit 35.6 % (37.0-47.0); Hemoglobin 12.1 g/dL (12.0-16.0); Mean Corp Hgb Conc. 34.0 g/dL (33.0-37.0); Mean Corpuscular Volume 89.4 fL (81.0-99.0); Platelet Count 259 10^3/uL (130-400); Red Cell Dist. Width 11.9 % (11.5-14.5)
[2025-05-15 06:39] LABS: Glucose - Point of Care 145 mg/dl (70-99)
[2025-05-15 06:44] LABS: Blood Urea Nitrogen 9 mg/dl (7-17); Calcium 8.8 mg/dl (8.4-10.2); Carbon Dioxide 26 mmol/L (22-30); Chloride 109 mmol/L (98-107); Estimated Creatinine Clearance 98 ml/min; Glucose 133 mg/dl (70-99); Magnesium 2.0 mg/dl (1.6-2.3); Potassium 4.5 mmol/L (3.5-5.1); Sodium 139 mmol/L (135-145); eGFR > 60.00
--- NOTE | 2025-05-15 09:00 | W.PN.HOSP.TC ---
Today's Communication/Plan
-
For lumbar wound debridement and closure with plastic surgery today
Assessment / Plan
Assessment / Plan
HPI: 64-year-old female past medical history of laminectomy of L2-L4/spinal fusion on 04/18 complicated by surgical site infection status post OR washout on 04/24 with wound VAC, ankylosing spondylitis, obstructive sleep apnea on CPAP, diabetes,
hyperlipidemia, DVT on Eliquis, presenting for fever up to 102 over the past few days. She has nausea without vomiting. No abdominal pain. No diarrhea.
Patient was recently admitted after she had lumbar laminectomy and fusion on 04/18 complicated by postoperative wound dehiscence and surgical wound infection status post OR washout on 04/24 and wound VAC placement.
She currently has a wound VAC and drainage has been decreasing. She has ongoing pain from the wound VAC but denies worsening pain. Denies any neurological symptoms such as numbness or tingling. She has headache and body aches and chills. Denies
smoking or alcohol use.
#Acute infectious discitis at L3/L4
#Acute osteomyelitis of L3/L4 with abscess
#History of laminectomy L2-L4/spinal fusion on 04/18 complicated by postoperative wound dehiscence/surgical wound infection status post OR washout on 04/24 with subsequent wound VAC
Appreciate neurosurgery input, no surgical intervention recommended
Appreciate plastics input, plan for debridement and closure today, 05/15
ID following, plan to start antibiotics after deep cultures have been obtained
Continue holding Eliquis. Resume when okay with plastics
Continue pain meds, laxatives, trend fever and white count
#Ankylosing spondylitis
Humira currently on hold until she follows up with rheumatology
#Obstructive sleep apnea
Continue CPAP
#Type 2 diabetes
Controlled with hemoglobin A1c 6.6
Hold Mounjaro
Continue Jardiance, sliding scale insulin
#Hyperlipidemia
-Continue statin
History of DVT
-Last DVT in 2017
-On Eliquis, to be held for now
Anxiety/depression
- Continue duloxetine
DVT prophylaxis�subcu Lovenox while holding Eliquis
Full code
Total time spent to see the patient on the floor, examine the patient, review data and lab results, discuss treatment plan with patient, nursing staff around 40 minutes.
Physical Exam
General: No acute distress
HEENT: Normocephalic, Atraumatic, EOMI, MMM
Respiratory: Clear to Auscultation bilaterally
Cardiac: Normal S1/S2, Regular Rate and Rhythm
GI: Soft, Nontender, Nondistended, Normal Bowel Sounds
Msk: Back with lumbar surgical wound noted
Extremities: No Clubbing, Cyanosis, or Edema
Neuro: Nonfocal/Grossly Intact
Anticipated Discharge: > 48 hours
Subjective/Interval History
-
Date of Service: May 14, 2025
Patient reports her back soreness is improved with removal of the wound VAC. Denies chest pain, shortness of breath. No fever, no vomiting.
Objective Data
-
Labs:
Laboratory Results
05/14/25
07:45
WBC 7.7
Hgb 11.4 L
Hct 33.4 L
Plt Count 248
Sodium 137
Potassium 4.2
Chloride 109 H
Carbon Dioxide 25
BUN 8
Creatinine 0.4 L
Glucose 110 H
Calcium 8.8
Total Bilirubin 0.8
AST 45 H
ALT 35
Alkaline Phosphatase 93
Vital Signs:
Vital Signs
Temp Pulse Resp BP Pulse Ox
98.4 F 95 16 92/62 97
05/14/25 12:49 05/14/25 12:49 05/14/25 12:49 05/14/25 13:15 05/14/25 12:49
I&O
05/13/25 05/14/25 05/15/25
06:59 06:59 06:59
Intake Total 360 / 360 480 / 480
Output Total 200 / 200
Balance 160 / 160 480 / 480
[2025-05-15] MEDS: NOVOLOG FLEXPEN-LOW RESISTANCE SC ×3 (09:09→18:19)
[2025-05-15] MEDS: LIPITOR 20 MG PO (09:10)
[2025-05-15] MEDS: VITAMIN C 500 MG PO (09:10)
[2025-05-15] MEDS: B COMPLEX w/VITAMIN C 1 CAPLET PO (09:10)
[2025-05-15] MEDS: VISBIOME 1 CAP PO (09:11)
[2025-05-15] MEDS: SENOKOT-S 2 TABLET PO (09:11)
[2025-05-15] MEDS: VITAMIN D3 (cholecalciferol) 25 MCG PO (09:11)
[2025-05-15] MEDS: FARXIGA 10 MG PO (09:11)
[2025-05-15] MEDS: CYMBALTA DELAYED RELEASE 20 MG PO ×2 (09:11→21:43)
[2025-05-15 10:14] LABS: INR 1.02; PT 13.7 Sec (11.4-14.6)
[2025-05-15 12:04] LABS: Glucose - Point of Care 111 mg/dl (70-99)
--- NOTE | 2025-05-15 12:27 | CM ---
Reviewed the chart notes. Per note, for lumbar wound debridement and closure with plastic surgery today. ID following. Dr. Rocha will obtain deep tissue cultures in the OR. CM continues to be available to patient/family and is monitoring medical
plan for needs at discharge.
Plan: Discharge to home when medically stable with resumption of VN services. Referral accepted in [facility].
--- NOTE | 2025-05-15 13:25 | W.PN.ID1 ---
Date of Service
Date of Service: May 15, 2025
Today's Communication
Post-op start empiric Vanco pending OR cx's.
Assessment / Plan
Assessment
# Acute discitis and osteomyelitis L3/L4
# Soft tissue abscess posterior to L3 pedicle screw
# Fever resolved
# Recent hx lumbar laminectomy/fusion 04/18/25
# Ankylosing spondylitis on Simponi, currently on hold
# Diabetes mellitus on Mounjaro
Plan:
-Blood cultures x 2 negative to date
- UA bland/Ucx neg
-Plastics, Dr. Rocha, plans to take the patient to OR for debridement and closure today
Dr. Rocha will obtain deep tissue cultures in the OR.
-In the meantime, continue to hold antibiotic to increase intra-op yield.
- Post-op will start empiric Vancomycin.
Chief Complaint
-: Other (discitis)
Subjective / Review of Systems
Feels OK today.
Vital Signs / Physical Exam
Vital Signs
Vital Signs
Temp Pulse Resp BP Pulse Ox
98.0 F 90 18 92/53 99
05/15/25 07:00 05/15/25 07:00 05/15/25 07:00 05/15/25 07:00 05/15/25 07:00
Physical Exam
Constitutional: No Acute Distress
Cardiovascular: Regular Rate and S1/S2
Pulmonary: Clear
Gastrointestinal: Soft, Non Tender and Non Distended
Extremities: Negative Edema
Neurological: AO x 3
Objective Data
Lab Data
Lab Results
05/15/25 05:48
05/15/25 05:48
PT 13.7 Sec (11.4-14.6) 05/15/25 09:48
INR 1.02 05/15/25 09:48
Estimated Creat Clear 98 ml/min 05/15/25 05:48
Lactic Acid Cancelled 05/13/25 18:00
Total Bilirubin 0.8 mg/dl (0.2-1.3) 05/14/25 07:45
AST 45 U/L (14-36) H 05/14/25 07:45
ALT 35 U/L (0-35) 05/14/25 07:45
Alkaline Phosphatase 93 U/L (38-126) 05/14/25 07:45
C-Reactive Protein 56.50 mg/L (0.0-10.00) H 05/13/25 14:04
Most recent labs reviewed.
Micro Results:
05/14/25 14:29 Blood Parasites Smear - Final
Blood/Venous
05/13/25 16:18 Urine Culture - Final
Urine No Significant Growth
05/13/25 14:04 Blood Culture - Preliminary
Blood/Venous No Growth in 24 hours- Final report to follow
05/13/25 14:04 Blood Culture - Preliminary
Blood/Venous No Growth in 24 hours- Final report to follow
05/13/25 14:05 Influenza Types A & B (ASHLEIGH) - Final
Nasal Swab Negative for Influenza A & B, NAAT
Negative results must be combined with clinical observations
and patient history.
Nucleic Acid Amplification test (NAAT)performed on the
[employer] platform.
05/14/25 Lumbar MRI wo and w contrast:
1. ACUTE INFECTIOUS DISCITIS at L3/L4.
2. ACUTE OSTEOMYELITIS in the inferior endplate of L3 and superior endplate of L4.
3. Large 9 cm posterior soft tissue wound in the midline posterior to L3.
4. 3.4 cm subcutaneous ABSCESS posterior to the left L3 pedicle screw.
--- NOTE | 2025-05-15 13:37 | PHA.VAN.IN ---
Assessment
- Assessment
Renal Function: Appears similar to baseline
- Previous Dosing Experience
Previous Regimen: Vanc 1250mg Q12H
Date of Regimen: 04/24/25-04/28/25
Provided AUC of: 318
Patient's SCR is: Similar to previous dosing experience
Patient's weight is: Similar to previous dosing experience
Regimen provided the following additional patient-specific PK:
Cmax 19.2 mcg/ml
Cmin 8.6 mcg/ml
ke=0.0763
half-life = 9.1
Vd = 103 L
Vanc Cl = 131 ml/min
Levels were drawn appropriately (Peak ~3H after end of infusion) after 5th maintenance dose
Vanc 1500mg Q12H predicted AUC 404, peak 24.3, trough 10.9
AUC Dosing Plan
- Empiric Dosing
Initial / Loading Dose: 2000mg - to administer after OR
Maintenance Regimen: Vanc 1500mg Q12H based on prior experience above
- Monitoring
No levels ordered at this time: consider levels in next few days
Pharmacokinetics Vancomycin I
- -
Patient Age: 64
Patient Sex: Female
Vancomycin Day #: 1
Indication: Bone And Joint
Requesting Provider: Dr. Tidwell
Pertinent Antimicrobial Allergies:
no pertinent antibiotic allergies
Height / Weight:
Height 5 ft 8 in
Actual Weight 77.61 kg
- Vital Signs / Lab Results
Temp Pulse Resp BP Pulse Ox
98.0 F 90 18 92/53 99
05/15/25 07:00 05/15/25 07:00 05/15/25 07:00 05/15/25 07:00 05/15/25 07:00
Lab Results - Hematology
05/13/25 05/14/25 05/15/25
14:04 07:45 05:48
WBC 10.8 7.7 5.7
Lab Results - Chemistry
05/13/25 05/14/25 05/15/25
14:04 07:45 05:48
BUN 10 8 9
Creatinine 0.4 L 0.4 L 0.5 L
Estimated Creat Clear 98 98 98
Albumin 3.8 3.2 L
05/13/25 05/13/25
14:05 18:00
Lactic Acid 1.9 Cancelled
Lab Results - Urine
05/13/25
16:18
Urine Nitrite (Reflex) Negative
Leukocyte Esterase Rfl 1+ A
Urine WBC (Reflex) 3-5
Ur Squamous Epith Cells 3-5
Urine Bacteria (Reflex) Few A
Microbiology Results
05/14/25 14:29 Blood Parasites Smear - Final
Blood/Venous
05/13/25 16:18 Urine Culture - Final
Urine No Significant Growth
05/13/25 14:04 Blood Culture - Preliminary
Blood/Venous No Growth in 24 hours- Final report to follow
05/13/25 14:04 Blood Culture - Preliminary
Blood/Venous No Growth in 24 hours- Final report to follow
05/13/25 14:05 Influenza Types A & B (ASHLEIGH) - Final
Nasal Swab Negative for Influenza A & B, NAAT
Negative results must be combined with clinical observations
and patient history.
Nucleic Acid Amplification test (NAAT)performed on the
[employer] platform.
[2025-05-15 13:53] LABS: Lyme Antibody Screen, EIA Negative (Negative)
--- NOTE | 2025-05-15 16:18 | W.IMMPOSTOP ---
Surgical Immed Post Op Note
-
Primary Surgeon:
Assisting Surgeon:
Pre-op Diagnosis:
Post-op Diagnosis:
Procedure Performed:
Anesthesia Type:
Specimen / Cultures:
Estimated Blood Loss:
Complications:
Operative Findings:
--- NOTE | 2025-05-15 16:21 | W.PN.UPDATE ---
Update Note
Progress Note Update
Plastic surgery update:
Went to OR for washout, readvancement of muscle flaps, delayed primary closure. HUMPHREY drain placed. Cultures obtained.
Patient to remain in right lateral or left lateral decubitus, no laying on her back.
Incisional vac to -125 continuous to be removed prior to discharge
Strip and record drain output q4 hours
ABX per ID
[2025-05-15 16:35] LABS: Glucose - Point of Care 168 mg/dl (70-99)
[2025-05-15] MEDS: DILAUDID 0.25 MG IV ×2 (16:47→16:59)
[2025-05-15] MEDS: VANCOCIN 540 MG IV (17:37)
[2025-05-15] MEDS: LOVENOX 40 MG SC (18:07)
[2025-05-15 18:13] LABS: Glucose - Point of Care 133 mg/dl (70-99)
[2025-05-15] MEDS: ZOFRAN 4 MG IV (20:29)
[2025-05-15 20:53] LABS: Glucose - Point of Care 197 mg/dl (70-99)
[2025-05-15] MEDS: NORCO 5/325 2 TABLET PO (23:54)
[2025-05-15] MEDS: NSS 500 IV (23:55)
--- NOTE | 2025-05-15 23:55 | PTCARENOTE ---
Patient's BP 89/55 HR 100. Asymptomatic. CYANIDE POT TENDER made aware. 500ml Bolus ordered
[2025-05-16] VITALS (7 sets, daily range): BP systolic 89–103; BP diastolic 51–55
[2025-05-16] MEDS: DILAUDID 0.5 MG IV ×3 (01:13→20:08)
[2025-05-16] MEDS: VANCOCIN 530 MG IV ×2 (05:00→18:12)
[2025-05-16] MEDS: NORCO 5/325 2 TABLET PO ×3 (05:01→18:18)
[2025-05-16 06:33] LABS: Hematocrit 30.0 % (37.0-47.0); Hemoglobin 10.0 g/dL (12.0-16.0); Mean Corp Hgb Conc. 33.3 g/dL (33.0-37.0); Mean Corpuscular Volume 91.2 fL (81.0-99.0); Platelet Count 254 10^3/uL (130-400); Red Cell Dist. Width 12.1 % (11.5-14.5)
[2025-05-16 06:53] LABS: Blood Urea Nitrogen 8 mg/dl (7-17); Calcium 8.4 mg/dl (8.4-10.2); Carbon Dioxide 26 mmol/L (22-30); Chloride 110 mmol/L (98-107); Estimated Creatinine Clearance 98 ml/min; Glucose 97 mg/dl (70-99); Potassium 3.9 mmol/L (3.5-5.1); Sodium 138 mmol/L (135-145); eGFR > 60.00
[2025-05-16 07:58] LABS: Glucose - Point of Care 92 mg/dl (70-99)
--- NOTE | 2025-05-16 08:35 | PHA.VAN.FU ---
Vancomycin Assessment / Plan
- Assessment
Renal Function: Stable
WBC's are: WNL
In the past 24 hrs, patient has been: Afebrile
- Dosing Plan
Continue: Vanc 1500mg Q12H
- Monitoring Plan
No level(s) ordered at this time: consider levels in next few days
- Follow Up
Pharmacy will continue to follow.
Vancomycin Follow UP
- -
Patient Age: 64
Patient Sex: Female
Vancomycin Day #: 2
Indication: Bone And Joint
Requesting Provider: Dr. Tidwell
Pertinent Antimicrobial Allergies:
no pertinent antibiotic allergies
Height / Weight:
Height 5 ft 8 in
Actual Weight 77.61 kg
- Vital Signs / Lab Results
Temp Pulse Resp BP Pulse Ox
98 F 92 20 90/52 98
05/16/25 04:54 05/16/25 04:54 05/16/25 04:54 05/16/25 04:54 05/16/25 04:54
Lab Results - Hematology
05/13/25 05/14/25 05/15/25
14:04 07:45 05:48
WBC 10.8 7.7 5.7
05/16/25
05:54
WBC 5.9
Lab Results - Chemistry
05/13/25 05/14/25 05/15/25
14:04 07:45 05:48
BUN 10 8 9
Creatinine 0.4 L 0.4 L 0.5 L
Estimated Creat Clear 98 98 98
Albumin 3.8 3.2 L
05/16/25
05:54
BUN 8
Creatinine 0.4 L
Estimated Creat Clear 98
Albumin
05/13/25 05/13/25
14:05 18:00
Lactic Acid 1.9 Cancelled
Microbiology Results
05/15/25 14:40 Gram Stain - Preliminary
Back
05/15/25 14:45 Gram Stain - Preliminary
Tissue
05/13/25 14:04 Blood Culture - Preliminary
Blood/Venous No Growth in 48 hours- Final report to follow
05/13/25 14:04 Blood Culture - Preliminary
Blood/Venous No Growth in 48 hours- Final report to follow
05/14/25 14:29 Blood Parasites Smear - Final
Blood/Venous
05/13/25 16:18 Urine Culture - Final
Urine No Significant Growth
[2025-05-16] MEDS: NOVOLOG FLEXPEN-LOW RESISTANCE SC (09:12)
--- NOTE | 2025-05-16 09:30 | W.PN.HOSP.TC ---
Today's Communication/Plan
-
see bold
Assessment / Plan
Assessment / Plan
HPI: 64-year-old female past medical history of laminectomy of L2-L4/spinal fusion on 04/18 complicated by surgical site infection status post OR washout on 04/24 with wound VAC, ankylosing spondylitis, obstructive sleep apnea on CPAP, diabetes,
hyperlipidemia, DVT on Eliquis, presenting for fever up to 102 over the past few days. She has nausea without vomiting. No abdominal pain. No diarrhea.
Patient was recently admitted after she had lumbar laminectomy and fusion on 04/18 complicated by postoperative wound dehiscence and surgical wound infection status post OR washout on 04/24 and wound VAC placement.
She currently has a wound VAC and drainage has been decreasing. She has ongoing pain from the wound VAC but denies worsening pain. Denies any neurological symptoms such as numbness or tingling. She has headache and body aches and chills. Denies
smoking or alcohol use.
#Acute infectious discitis at L3/L4
#Acute osteomyelitis of L3/L4 with abscess
#History of laminectomy L2-L4/spinal fusion on 04/18 complicated by postoperative wound dehiscence/surgical wound infection status post OR washout on 04/24 with subsequent wound VAC
Appreciate neurosurgery input, no surgical intervention recommended
Appreciate plastics input, s/p washout, debridement and closure 05/[address] Rocha
Appreciate ID input, started on vancomycin 05/15
Continue holding Eliquis. Resume when okay with plastics
Patient to remain in right lateral or left lateral decubitus, no laying on her back
Continue pain meds, laxatives, trend fever and white count
#Ankylosing spondylitis
Humira currently on hold until she follows up with rheumatology
#Obstructive sleep apnea
Continue CPAP
#Type 2 diabetes
Controlled with hemoglobin A1c 6.6
Hold Mounjaro
Continue Jardiance, sliding scale insulin
#Hyperlipidemia
-Continue statin
History of DVT
-Last DVT in 2017
-On Eliquis, to be held for now
Anxiety/depression
- Continue duloxetine
DVT prophylaxis�subcu Lovenox while holding Eliquis
Full code
Total time spent to see the patient on the floor, examine the patient, review data and lab results, discuss treatment plan with patient, nursing staff around 39 minutes.
Physical Exam
General: No acute distress
HEENT: Normocephalic, Atraumatic, EOMI, MMM
Respiratory: Clear to Auscultation bilaterally
Cardiac: Normal S1/S2, Regular Rate and Rhythm
GI: Soft, Nontender, Nondistended, Normal Bowel Sounds
Msk: Back with lumbar surgical wound w/ wound VAC & HUMPHREY drain noted
Extremities: No Clubbing, Cyanosis, or Edema
Neuro: Nonfocal/Grossly Intact
Anticipated Discharge: > 48 hours
Subjective/Interval History
-
Date of Service: May 16, 2025
Patient reports being uncomfortable overnight, not being able to lie her back. She also reports intermittent periods of severe pain. Denies chest pain, denies shortness of breath. No fever, no vomiting.
Objective Data
-
Labs:
Laboratory Results
05/16/25
05:54
WBC 5.9
Hgb 10.0 L
Hct 30.0 L
Plt Count 254
Sodium 138
Potassium 3.9
Chloride 110 H
Carbon Dioxide 26
BUN 8
Creatinine 0.4 L
Glucose 97
Calcium 8.4
Vital Signs:
Vital Signs
Temp Pulse Resp BP Pulse Ox
98 F 92 20 90/52 98
05/16/25 04:54 05/16/25 04:54 05/16/25 04:54 05/16/25 04:54 05/16/25 04:54
I&O
05/15/25 05/16/25 05/17/25
06:59 06:59 06:59
Intake Total 480 / 480 1180 / 1180
Output Total
Balance 480 / 480 1103 / 1103
[2025-05-16] MEDS: SENOKOT-S 2 TABLET PO (09:52)
[2025-05-16] MEDS: VISBIOME 1 CAP PO (09:52)
[2025-05-16] MEDS: VITAMIN D3 (cholecalciferol) 25 MCG PO (09:53)
[2025-05-16] MEDS: FARXIGA 10 MG PO (09:53)
[2025-05-16] MEDS: LIPITOR 20 MG PO (09:53)
[2025-05-16] MEDS: B COMPLEX w/VITAMIN C 1 CAPLET PO (09:53)
[2025-05-16] MEDS: VITAMIN C 500 MG PO (09:54)
[2025-05-16] MEDS: CYMBALTA DELAYED RELEASE 20 MG PO ×2 (09:58→20:09)
--- NOTE | 2025-05-16 11:05 | W.PN.ID1 ---
Date of Service
Date of Service: May 16, 2025
Today's Communication
Continue Vancomycin for now.
Assessment / Plan
Assessment
# Acute discitis and osteomyelitis L3/L4
# Soft tissue abscess posterior to L3 pedicle screw
# Fever resolved
# Recent hx lumbar laminectomy/fusion 04/18/25
# Ankylosing spondylitis on Simponi, currently on hold
# Diabetes mellitus on Mounjaro
Plan:
-Blood cultures x 2 negative to date
- UA bland/Ucx neg
-05/15 s/p washout, readvancement of muscle flaps, delayed primary closure. HUMPHREY drain placed.
OR cx's pending
- Continue empiric Vancomycin IV pending cx data.
- Will need prolonged course of IVabx.
Chief Complaint
-: Other (discitis)
Subjective / Review of Systems
c/o discomfort at drain site
Vital Signs / Physical Exam
Vital Signs
Vital Signs
Temp Pulse Resp BP Pulse Ox
98.3 F 88 20 89/51 98
05/16/25 07:11 05/16/25 07:11 05/16/25 07:11 05/16/25 07:11 05/16/25 07:11
Physical Exam
Constitutional: No Acute Distress and Comfortable
Cardiovascular: Regular Rate and S1/S2
Pulmonary: Clear
Gastrointestinal: Soft, Non Tender and Non Distended
Wound: Other (Lumbar drain serosanguinous fluid)
Neurological: AO x 3
Objective Data
Lab Data
Lab Results
05/16/25 05:54
05/16/25 05:54
PT 13.7 Sec (11.4-14.6) 05/15/25 09:48
INR 1.02 05/15/25 09:48
Estimated Creat Clear 98 ml/min 05/16/25 05:54
Lactic Acid Cancelled 05/13/25 18:00
Total Bilirubin 0.8 mg/dl (0.2-1.3) 05/14/25 07:45
AST 45 U/L (14-36) H 05/14/25 07:45
ALT 35 U/L (0-35) 05/14/25 07:45
Alkaline Phosphatase 93 U/L (38-126) 05/14/25 07:45
C-Reactive Protein 56.50 mg/L (0.0-10.00) H 05/13/25 14:04
Most recent labs reviewed.
Micro Results:
05/15/25 14:40 Wound Culture - Pending
Back Gram Stain - Preliminary
05/15/25 14:45 Tissue Culture - Pending
Tissue Gram Stain - Preliminary
05/15/25 14:40 Anaerobic Culture - Pending
Back
05/13/25 14:04 Blood Culture - Preliminary
Blood/Venous No Growth in 48 hours- Final report to follow
05/13/25 14:04 Blood Culture - Preliminary
Blood/Venous No Growth in 48 hours- Final report to follow
05/14/25 14:29 Blood Parasites Smear - Final
Blood/Venous
05/13/25 16:18 Urine Culture - Final
Urine No Significant Growth
05/13/25 14:05 Influenza Types A & B ([facility]) - Final
Nasal Swab Negative for Influenza A & B, NAAT
Negative results must be combined with clinical observations
and patient history.
Nucleic Acid Amplification test (NAAT)performed on the
[employer] platform.
05/14/25 Lumbar MRI wo and w contrast:
1. ACUTE INFECTIOUS DISCITIS at L3/L4.
2. ACUTE OSTEOMYELITIS in the inferior endplate of L3 and superior endplate of L4.
3. Large 9 cm posterior soft tissue wound in the midline posterior to L3.
4. 3.4 cm subcutaneous ABSCESS posterior to the left L3 pedicle screw.
[2025-05-16 12:10] LABS: Glucose - Point of Care 159 mg/dl (70-99)
[2025-05-16] MEDS: NOVOLOG FLEXPEN-LOW RESISTANCE 1 UNITS SC ×2 (12:38→18:11)
--- NOTE | 2025-05-16 13:06 | W.PN.PLAS ---
Today's Communication
-
incisional vac down tomorrow
Progress Note
Subjective Data
Doing well, pain but controlled
Objective Data
Vital Signs
Temp Pulse Resp BP Pulse Ox
98.5 F 93 20 91/51 98
05/16/25 11:00 05/16/25 11:00 05/16/25 11:00 05/16/25 11:00 05/16/25 11:00
Intake and Output
05/15/25 05/16/25 05/17/25
06:59 06:59 06:59
Intake Total 480 / 480 1180 / 1180
Output Total
Balance 480 / 480 1103 / 1103 -10 / -10
Intake:
Oral fluids 480 / 480 1080 / 1080
IV fluids (Total) 100 / 100
normosol 100 / 100
Output:
Drain Output (Total)
Middle Back Charli-Mota
Other:
Number of approximated MODERATE 1 1 1
amounts of urine
Number of approximated LARGE 3
amounts of urine
Pex:
NAD
No increased WOB
incisional vac intact
crao drain serosang
Lab Results
05/16/25 05:54
05/16/25 05:54
Microbiology Results
05/15/25 14:45 Tissue Tissue Culture - Preliminary
Staph aureus MRSA
05/15/25 14:45 Tissue Gram Stain - Preliminary
05/15/25 14:40 Back Anaerobic Culture - Preliminary
Culture pending. Anaerobic cultures are examined after 3
days incubation. Additional information to follow.
05/15/25 14:40 Back Wound Culture - Preliminary
No growth
05/15/25 14:40 Back Gram Stain - Preliminary
05/13/25 14:04 Blood/Venous Blood Culture - Preliminary
No Growth in 48 hours- Final report to follow
05/13/25 14:04 Blood/Venous Blood Culture - Preliminary
No Growth in 48 hours- Final report to follow
05/14/25 14:29 Blood/Venous Blood Parasites Smear - Final
05/13/25 16:18 Urine Urine Culture - Final
No Significant Growth
Wound Documentation
05/14/25 12:30 (created 05/14/25 13:31) Wound Note by Christine Howard
WOC RN note: Patient admitted with wound infection. She lives at home and is current with . Patient for wound closure tomorrow with Dr. Rocha.
See H&P for complete history.
PMH: From H+P 'Past Medical History: Reports Other ( laminectomy of L2-L4/spinal fusion on 04/18 complicated by surgical site infection status post OR washout on 04/24 with wound VAC, ankylosing spondylitis, obstructive sleep apnea on CPAP, diabetes,
hyperlipidemia, DVT on Eliquis)'
Wound Location and type/assessment: Patient admitted with: full thickness surgical wound lumbar region to muscle or deeper, pink with scattered yellow tissue. Moderate ss drainage. No odor. Back skin with mild redness from vac drape adhesive.
Appetite: good.
Pressure redistribution devices in place: [facility] Accum[facility]. Patient moves self in bed.
Plan: Patient seen with Dr. Rocha and Dr. Tidwell who assessed wound. Plan is OR tomorrow and Dr. Rocha stated can pack wound with saline moistened gauze packing for today. Plan is OR closure tomorrow with possible incisional vac application.
Aj stated he will plan to take wound cultures in the OR. Discussed with ARY Hall.
Care plan to be updated and will follow peripherally as needed.
Initialized on 05/14/25 13:31 - END OF NOTE
Size in centimeters (length/ 9x2.5x4; wound to L 2x.2x.1
width/depth) [Lower Back]
Last measured date [Lower Back 05/14/25
]
Physical Exam
Wound:
Size in centimeters (length/ 9x2.5x4; wound to L 2x.2x.1
width/depth) [Lower Back]
Last measured date [Lower Back 05/14/25
]
Assessment / Plan
s/p back excisional debridement, paraspinal muscle flap revision, delayed primary closure
--- NOTE | 2025-05-16 15:08 | CM ---
Reviewed the chart notes. Patient with wound vac to back. Per ID note, will need prolonged course of IV abx. Cultures pending. CM continues to be available to patient/family and is monitoring medical plan for needs at discharge.
Plan: Discharge to home with resumption of VN services and IV abx.
[2025-05-16 16:48] LABS: Glucose - Point of Care 172 mg/dl (70-99)
[2025-05-16] MEDS: LOVENOX 40 MG SC (18:12)
[2025-05-16 20:59] LABS: Glucose - Point of Care 147 mg/dl (70-99)
[2025-05-17] MEDS: DILAUDID 0.5 MG IV ×2 (03:49→10:48)
[2025-05-17] MEDS: NORCO 5/325 2 TABLET PO ×2 (05:02→19:51)
[2025-05-17] MEDS: VANCOCIN 530 MG IV (05:03)
[2025-05-17 06:32] LABS: Hematocrit 28.7 % (37.0-47.0); Hemoglobin 9.6 g/dL (12.0-16.0); Mean Corp Hgb Conc. 33.4 g/dL (33.0-37.0); Mean Corpuscular Volume 90.8 fL (81.0-99.0); Platelet Count 235 10^3/uL (130-400); Red Cell Dist. Width 12.0 % (11.5-14.5)
[2025-05-17 06:59] LABS: Blood Urea Nitrogen 4 mg/dl (7-17); Calcium 8.2 mg/dl (8.4-10.2); Carbon Dioxide 28 mmol/L (22-30); Chloride 109 mmol/L (98-107); Estimated Creatinine Clearance 98 ml/min; Glucose 108 mg/dl (70-99); Potassium 3.9 mmol/L (3.5-5.1); Sodium 139 mmol/L (135-145); eGFR > 60.00
[2025-05-17 07:55] VITALS: BP 92/55
--- NOTE | 2025-05-17 07:56 | W.PN.SP ---
Today's Communication / Plan
-
Will likely need PICC for abx.
May need supressive oral bx after for a antonino months with the screws in. Would prefer to leave dcrews in for at least 6 months.
Subjective / Objective
Subjective Data
Pt was seen yesterday
Pain in back from flap
Dr Rocha found seroma where the fluid collection was. Cultures taken
Objective Data
Vital Signs
Temp Pulse Resp BP Pulse Ox
98.2 F 98 20 98/55 96
05/16/25 23:24 05/16/25 23:24 05/16/25 23:24 05/16/25 23:24 05/16/25 23:24
Intake and Output
05/16/25 05/17/25 05/18/25
06:59 06:59 06:59
Intake Total 1180 / 1180 2150 / 2150
Output Total 70 /
Balance 1103 / 1103 2080 / 2080
Intake:
Oral fluids 1080 / 1080 1620 / 1620
IV fluids (Total) 100 / 100
normosol 100 / 100
IV piggybacks 530 / 530
Output:
Drain Output (Total) 70 / 70
Middle Back Charli-Mota 70
Other:
Number of approximated MODERATE 1 1
amounts of urine
Number of approximated LARGE 3 3
amounts of urine
Lab Data
05/17/25 05:33
05/17/25 05:33
[2025-05-17 08:10] LABS: Glucose - Point of Care 96 mg/dl (70-99)
[2025-05-17] MEDS: NOVOLOG FLEXPEN-LOW RESISTANCE SC ×2 (08:40→12:41)
[2025-05-17] MEDS: FARXIGA 10 MG PO (08:41)
[2025-05-17] MEDS: B COMPLEX w/VITAMIN C 1 CAPLET PO (08:41)
[2025-05-17] MEDS: SENOKOT-S 2 TABLET PO ×2 (08:41→19:42)
[2025-05-17] MEDS: VISBIOME 1 CAP PO (08:41)
[2025-05-17] MEDS: LIPITOR 20 MG PO (08:41)
[2025-05-17] MEDS: CYMBALTA DELAYED RELEASE 20 MG PO ×2 (08:41→19:42)
[2025-05-17] MEDS: VITAMIN D3 (cholecalciferol) 25 MCG PO (08:41)
[2025-05-17] MEDS: VITAMIN C 500 MG PO (08:41)
--- NOTE | 2025-05-17 08:55 | W.PN.ID1 ---
Addendum entered and electronically signed by Maria Fernanda Tidwell MD 05/17/25 10:06:
I saw and evaluated the patient. I reviewed the resident�s note and agree with findings and plan as documented in the resident�s note.
Assessment
# Acute early discitis and osteomyelitis L3/L4 hardware infection
# Soft tissue abscess posterior to L3 pedicle screw
# Fever resolved
# Recent hx lumbar laminectomy/fusion 04/18/25
# Ankylosing spondylitis on Simponi, currently on hold
# Diabetes mellitus on Mounjaro
Plan:
-Blood cultures x 2 negative to date
- UA bland/Ucx neg
-05/15 s/p washout, readvancement of muscle flaps, delayed primary closure. HUMPHREY drain placed.
OR cx's MRSA. Asked micro to test for rifampin sensitivity
- For ease of use, use Daptomycin 800mg IV q24 x 8 weeks through 07/11/25.
- Hold atorvastatin while on daptomycin. Follow CK
- Will add rifampin 600mg po daily, if sensitive.
- After IV abx, step down to doxycycline 100 mg po bid for another 6 weeks or through screws removal in 6 months.
- Place PICC.
- Home infusion sheet submitted to field case manager.
- Follow weekly CBC, CMP, ESR, CRP, CK
- Counseled pt on MRSA and transmission prevention strategies.
Original Note:
Date of Service
Date of Service: May 17, 2025
AFVSS. offers no new complaints. States she is feeling better
Today's Communication
iv dapto for 8weeks and doxy after that to complete total of 6 months
picc ordered
hold statin
Assessment / Plan
Assessment
# Acute discitis and osteomyelitis L3/L4
# Soft tissue abscess posterior to L3 pedicle screw
# Fever; resolved
# Recent hx lumbar laminectomy/fusion 04/18/25
# Ankylosing spondylitis on Simponi, currently on hold
# Diabetes mellitus on Mounjaro
Plan:
- Blood cultures x 2 negative to date
- UA bland/Ucx neg
- Blood parasite neg
- 05/15 s/p washout, readvancement of muscle flaps, delayed primary closure. HUMPHREY drain placed.; currently with SSF drainage
- OR cx's with MRSA;
- Will need prolonged course of IV abx., would recommend iv daptomycin for 8 weeks and doxy after that for total of 6 months when screw comes out
would hold the statin while she is on dapto. will need weekly Ck lab
Chief Complaint
-: Other (discitis)
Subjective / Review of Systems
Review of Systems: No Fever, No Chills, No Headache, No Nausea, No Vomiting, No Diarrhea and No Skin Rash
Vital Signs / Physical Exam
Vital Signs
Vital Signs
Temp Pulse Resp BP Pulse Ox
98.3 F 92 16 92/55 96
05/17/25 07:55 05/17/25 07:55 05/17/25 07:55 05/17/25 07:55 05/17/25 07:55
Physical Exam
Constitutional: No Acute Distress, Well Developed and Comfortable
Cardiovascular: Regular Rate and S1/S2
Pulmonary: Clear and Non Labored
Gastrointestinal: Non Tender
Wound: Other (Lumbar Drain with SSF, Wound vac)
Neurological: AO x 3
Psychological: Calm
Objective Data
Lab Data
Lab Results
05/17/25 05:33
05/17/25 05:33
PT 13.7 Sec (11.4-14.6) 05/15/25 09:48
INR 1.02 05/15/25 09:48
Estimated Creat Clear 98 ml/min 05/17/25 05:33
Lactic Acid Cancelled 05/13/25 18:00
Total Bilirubin 0.8 mg/dl (0.2-1.3) 05/14/25 07:45
AST 45 U/L (14-36) H 05/14/25 07:45
ALT 35 U/L (0-35) 05/14/25 07:45
Alkaline Phosphatase 93 U/L (38-126) 05/14/25 07:45
C-Reactive Protein 56.50 mg/L (0.0-10.00) H 05/13/25 14:04
Most recent labs reviewed.
Micro Results:
05/15/25 14:45 Tissue Culture - Preliminary
Tissue Staph aureus MRSA
Gram Stain - Preliminary
05/13/25 14:04 Blood Culture - Preliminary
Blood/Venous No Growth in 72 hours- Final report to follow
05/13/25 14:04 Blood Culture - Preliminary
Blood/Venous No Growth in 72 hours- Final report to follow
05/15/25 14:40 Anaerobic Culture - Preliminary
Back Culture pending. Anaerobic cultures are examined after 3
days incubation. Additional information to follow.
05/15/25 14:40 Wound Culture - Preliminary
Back No growth
Gram Stain - Preliminary
05/14/25 14:29 Blood Parasites Smear - Final
Blood/Venous
05/13/25 16:18 Urine Culture - Final
Urine No Significant Growth
05/13/25 14:05 Influenza Types A & B ([facility]) - Final
Nasal Swab Negative for Influenza A & B, NAAT
Negative results must be combined with clinical observations
and patient history.
Nucleic Acid Amplification test (NAAT)performed on the
[facility] platform.
05/14/25 Lumbar MRI wo and w contrast:
1. ACUTE INFECTIOUS DISCITIS at L3/L4.
2. ACUTE OSTEOMYELITIS in the inferior endplate of L3 and superior endplate of L4.
3. Large 9 cm posterior soft tissue wound in the midline posterior to L3.
4. 3.4 cm subcutaneous ABSCESS posterior to the left L3 pedicle screw.
MRI: Report Reviewed
[2025-05-17] MEDS: TYLENOL 650 MG PO (08:58)
--- NOTE | 2025-05-17 09:01 | W.PN.HOSP.TC ---
Today's Communication/Plan
-
see bold
Assessment / Plan
Assessment / Plan
HPI: 64-year-old female past medical history of laminectomy of L2-L4/spinal fusion on 04/18 complicated by surgical site infection status post OR washout on 04/24 with wound VAC, ankylosing spondylitis, obstructive sleep apnea on CPAP, diabetes,
hyperlipidemia, DVT on Eliquis, presenting for fever up to 102 over the past few days. She has nausea without vomiting. No abdominal pain. No diarrhea.
Patient was recently admitted after she had lumbar laminectomy and fusion on 04/18 complicated by postoperative wound dehiscence and surgical wound infection status post OR washout on 04/24 and wound VAC placement.
She currently has a wound VAC and drainage has been decreasing. She has ongoing pain from the wound VAC but denies worsening pain. Denies any neurological symptoms such as numbness or tingling. She has headache and body aches and chills. Denies
smoking or alcohol use.
#Acute infectious discitis at L3/L4
#Acute osteomyelitis of L3/L4 with abscess
#History of laminectomy L2-L4/spinal fusion on 04/18 complicated by postoperative wound dehiscence/surgical wound infection status post OR washout on 04/24 with subsequent wound VAC
Appreciate neurosurgery input, no surgical intervention recommended
Appreciate plastics input, s/p washout, debridement and closure 05/[address] Rocha
Appreciate ID input, started on vancomycin 05/15. OR cx growing MRSA
Patient to remain in right lateral or left lateral decubitus, no laying on her back
Continue pain meds, laxatives, trend fever and white count
Insert PICC today, can be discharged once case management has set up for outpatient antibiotics
Discharge with drain, follow-up with plastic surgery for removal, follow-up with ID, and PCP as well
#Constipation
Increase laxatives
#Acute blood loss anemia from surgery
Mild, monitor
#Ankylosing spondylitis
Humira currently on hold until she follows up with rheumatology
#Obstructive sleep apnea
Continue CPAP
#Type 2 diabetes
Controlled with hemoglobin A1c 6.6
Hold Mounjaro
Continue Jardiance, sliding scale insulin
#Hyperlipidemia
-Continue statin
History of DVT
-Last DVT in 2016
-Resume Eliquis
Anxiety/depression
- Continue duloxetine
DVT prophylaxis�resume Eliquis
Full code
Total time spent to see the patient on the floor, examine the patient, review data and lab results, discuss treatment plan with patient, nursing staff around 50 minutes.
Physical Exam
General: No acute distress
HEENT: Normocephalic, Atraumatic, EOMI, MMM
Respiratory: Clear to Auscultation bilaterally
Cardiac: Normal S1/S2, Regular Rate and Rhythm
GI: Soft, Nontender, Nondistended, Normal Bowel Sounds
Msk: Back with lumbar surgical wound w/ incisions clean/dry/intact, HUMPHREY drain noted
Extremities: No Clubbing, Cyanosis, or Edema
Neuro: Nonfocal/Grossly Intact
Anticipated Discharge: Within 24 hours
Subjective/Interval History
-
Date of Service: May 16, 2025
Patient feels better this morning. She had a rough night last night, with severe pain. She reports being constipated. No fever, no vomiting.
Objective Data
-
Labs:
Laboratory Results
05/16/25
05:54
WBC 5.9
Hgb 10.0 L
Hct 30.0 L
Plt Count 254
Sodium 138
Potassium 3.9
Chloride 110 H
Carbon Dioxide 26
BUN 8
Creatinine 0.4 L
Glucose 97
Calcium 8.4
Vital Signs:
Vital Signs
Temp Pulse Resp BP Pulse Ox
98.5 F 93 20 91/51 98
05/16/25 11:00 05/16/25 11:00 05/16/25 11:00 05/16/25 11:00 05/16/25 11:00
I&O
05/15/25 05/16/25 05/17/25
06:59 06:59 06:59
Intake Total 480 / 480 1180 / 1180
Output Total /
Balance 480 / 480 1103 / 1103 -
[2025-05-17] MEDS: MIRALAX 17 GRAMS PO (10:54)
--- NOTE | 2025-05-17 11:50 | CM ---
Addendum entered by Ericka Cardona RN 05/17/25 15:48:
CM confirmed with [facility] clinicals and referral received.
Original Note:
Reviewed the chart notes and spoke with the patient at the bedside. IV abx script received from CT. Discussed home IV abx to patient and discussed infusion agencies. Patient agreeable with [facility]. Clinicals and script faxed to
[phone]. PICC line has not been placed as of this writing.
Plan: Discharge to home with [facility] services for wound care and [facility] if approved for home IV abx.
[2025-05-17 12:38] LABS: Glucose - Point of Care 146 mg/dl (70-99)
[2025-05-17] MEDS: CUBICIN 16 MG IV (13:40)
[2025-05-17 15:19] VITALS: BP 94/53
[2025-05-17 17:09] LABS: Glucose - Point of Care 193 mg/dl (70-99)
[2025-05-17] MEDS: NOVOLOG FLEXPEN-LOW RESISTANCE 1 UNITS SC (17:35)
[2025-05-17] MEDS: ELIQUIS 2.5 MG PO (19:42)
[2025-05-17 21:06] LABS: Glucose - Point of Care 158 mg/dl (70-99)
[2025-05-17 23:50] VITALS: BP 98/53
[2025-05-18] MEDS: NORCO 5/325 2 TABLET PO (02:29)
[2025-05-18 06:20] LABS: Hematocrit 29.2 % (37.0-47.0); Hemoglobin 9.9 g/dL (12.0-16.0); Mean Corp Hgb Conc. 33.9 g/dL (33.0-37.0); Mean Corpuscular Volume 89.6 fL (81.0-99.0); Platelet Count 239 10^3/uL (130-400); Red Cell Dist. Width 11.9 % (11.5-14.5)
[2025-05-18 06:43] LABS: Blood Urea Nitrogen 5 mg/dl (7-17); Calcium 8.7 mg/dl (8.4-10.2); Carbon Dioxide 28 mmol/L (22-30); Chloride 109 mmol/L (98-107); Estimated Creatinine Clearance 98 ml/min; Glucose 109 mg/dl (70-99); Potassium 4.0 mmol/L (3.5-5.1); Sodium 141 mmol/L (135-145); eGFR > 60.00
[2025-05-18 07:00] VITALS: BP 106/63
--- NOTE | 2025-05-18 07:23 | W.PN.HOSP.TC ---
Today's Communication/Plan
-
Give milk of magnesium
Discharge today
Assessment / Plan
Assessment / Plan
HPI: 64-year-old female past medical history of laminectomy of L2-L4/spinal fusion on 04/18 complicated by surgical site infection status post OR washout on 04/24 with wound VAC, ankylosing spondylitis, obstructive sleep apnea on CPAP, diabetes,
hyperlipidemia, DVT on Eliquis, presenting for fever up to 102 over the past few days. She has nausea without vomiting. No abdominal pain. No diarrhea.
Patient was recently admitted after she had lumbar laminectomy and fusion on 04/18 complicated by postoperative wound dehiscence and surgical wound infection status post OR washout on 04/24 and wound VAC placement.
She currently has a wound VAC and drainage has been decreasing. She has ongoing pain from the wound VAC but denies worsening pain. Denies any neurological symptoms such as numbness or tingling. She has headache and body aches and chills. Denies
smoking or alcohol use.
#Acute infectious discitis at L3/L4
#Acute osteomyelitis of L3/L4 with abscess
#History of laminectomy L2-L4/spinal fusion on 04/18 complicated by postoperative wound dehiscence/surgical wound infection status post OR washout on 04/24 with subsequent wound VAC
Appreciate neurosurgery input, no surgical intervention recommended
Appreciate plastics input, s/p washout, debridement and closure 05/[address] Rocha
Appreciate ID input, started on vancomycin 05/15. OR cx growing MRSA
ID recommends treatment w/ daptomycin through 07/11, PICC inserted 05/17
Patient to remain in right lateral or left lateral decubitus, no laying on her back
Continue pain meds, laxatives, trend fever and white count
Cleared by plastic surgery and ID for discharge today
Discharge with drain, follow-up with plastic surgery for removal, follow-up with ID, and PCP as well
#Constipation
Increased laxatives
#Acute blood loss anemia from surgery
Mild, monitor
#Ankylosing spondylitis
Humira currently on hold until she follows up with rheumatology
#Obstructive sleep apnea
Continue CPAP
#Type 2 diabetes
Controlled with hemoglobin A1c 6.6
Hold Mounjaro -resume upon discharge
Continue Jardiance, sliding scale insulin
#Hyperlipidemia
-Continue statin
History of DVT
-Last DVT in 2016
-Resumed Eliquis
Anxiety/depression
- Continue duloxetine
DVT prophylaxis�resumed Eliquis
Full code
Physical Exam
General: No acute distress
HEENT: Normocephalic, Atraumatic, EOMI, MMM
Respiratory: Clear to Auscultation bilaterally
Cardiac: Normal S1/S2, Regular Rate and Rhythm
GI: Soft, Nontender, Nondistended, Normal Bowel Sounds
Msk: Back with lumbar surgical wound w/ incisions clean/dry/intact, HUMPHREY drain noted
Extremities: No Clubbing, Cyanosis, or Edema
Neuro: Nonfocal/Grossly Intact
Anticipated Discharge: Today
Subjective/Interval History
-
Date of Service: May 18, 2025
Patient reports her back pain is tolerable. She still feels constipated. No fever, no vomiting.
Objective Data
-
Labs:
Laboratory Results
05/18/25
05:49
WBC 5.5
Hgb 9.9 L
Hct 29.2 L
Plt Count 239
Sodium 141
Potassium 4.0
Chloride 109 H
Carbon Dioxide 28
BUN 5 L
Creatinine 0.4 L
Glucose 109 H
Calcium 8.7
Vital Signs:
Vital Signs
Temp Pulse Resp BP Pulse Ox
98.4 F 86 16 98/53 98
05/17/25 23:50 05/17/25 23:50 05/17/25 23:50 05/17/25 23:50 05/17/25 23:50
I&O
05/17/25 05/18/25 05/19/25
06:59 06:59 06:59
Intake Total 2149 / 1739
Output Total 70 / 70 40 / 40
Balance 2079 1700 / 170
--- NOTE | 2025-05-18 08:15 | W.PN.ID1 ---
Addendum entered and electronically signed by Maria Fernanda Tidwell MD 05/18/25 13:55:
I saw and evaluated the patient. I reviewed the resident�s note and agree with findings and plan as documented in the resident�s note.
Exam: lumbar incision without erythema/drainage. HUMPHREY drain remain in place with clear serosanguineous fluid.
Assessment
# Acute early discitis and osteomyelitis L3/L4 hardware infection
# Soft tissue abscess posterior to L3 pedicle screw
# Fever resolved
# Recent hx lumbar laminectomy/fusion 04/18/25
# Ankylosing spondylitis on Simponi, currently on hold
# Diabetes mellitus on Mounjaro
Plan:
-Blood cultures x 2 negative to date
- UA bland/Ucx neg
-05/15 s/p washout, readvancement of muscle flaps, delayed primary closure. HUMPHREY drain placed.
OR cx's MRSA.
- For ease of use, use Daptomycin 800mg IV q24 x 8 weeks through 07/11/25.
Unable to add rifampin due to drug-drug interaction with Eliquis.
- Hold atorvastatin while on daptomycin. Follow CK
- After IV abx, step down to doxycycline 100 mg po bid for another 6 weeks or through screws removal in 6 months.
- Placed PICC.
- Home infusion sheet submitted to case investigator.
- Follow weekly CBC, CMP, ESR, CRP, CK
- DC home today.
-Follow-up with me in 3 weeks.
Original Note:
Date of Service
Date of Service: May 18, 2025
Today's Communication
- IV daptomycin for 8 weeks(through and doxycycline after that for total of 6 months when screw comes out; discussed the possible side effects from doxycycline.
- hold the statin while she is on dapto
- Follow weekly CBC, CMP, CRP, ESR and CK
- Follow-up outpatient plastic surgery for removal of drain
- retail operations manager working on setting up outpatient antibiotics.
Assessment / Plan
Assessment
# Acute early discitis and osteomyelitis L3/L4
# Soft tissue abscess posterior to L3 pedicle screw
# Fever; resolved
# Recent hx lumbar laminectomy/fusion 04/18/25
# Ankylosing spondylitis on Simponi, currently on hold
# Diabetes mellitus on Mounjaro
Plan:
- Blood cultures x 2 negative to date
- UA bland/Ucx neg
- Blood parasite neg
- 05/15 s/p washout, readvancement of muscle flaps, delayed primary closure. HUMPHREY drain placed.; currently with SSF drainage
- OR cx's with MRSA;
- Recommend IV daptomycin for 8 weeks(through and doxycycline after that for total of 6 months when screw comes out; discussed the possible side effects from doxycycline.
- hold the statin while she is on dapto
- Follow weekly CBC, CMP, CRP, ESR and CK
- CK is 31 today
-not recommend rifampin given use of current eliquis
Chief Complaint
-: Other (discitis)
Subjective / Review of Systems
Review of Systems: No Fever, No Chills, No Headache, No Nausea, No Vomiting, No Diarrhea and No Skin Rash
Vital Signs / Physical Exam
Vital Signs
Vital Signs
Temp Pulse Resp BP Pulse Ox
98.4 F 86 16 98/53 98
05/17/25 23:50 05/17/25 23:50 05/17/25 23:50 05/17/25 23:50 05/17/25 23:50
Physical Exam
Constitutional: No Acute Distress and Comfortable
Cardiovascular: Regular Rate and S1/S2
Pulmonary: Clear and Non Labored
Gastrointestinal: Soft and Non Tender
Wound: Other (Humphrey drain with SSF)
Neurological: Awake, Alert and Oriented
Psychological: Calm
Lines: PICC (Right UE)
Objective Data
Lab Data
Lab Results
05/18/25 05:49
05/18/25 05:49
PT 13.7 Sec (11.4-14.6) 05/15/25 09:48
INR 1.02 05/15/25 09:48
Estimated Creat Clear 98 ml/min 05/18/25 05:49
Lactic Acid Cancelled 05/13/25 18:00
Total Bilirubin 0.8 mg/dl (0.2-1.3) 05/14/25 07:45
AST 45 U/L (14-36) H 05/14/25 07:45
ALT 35 U/L (0-35) 05/14/25 07:45
Alkaline Phosphatase 93 U/L (38-126) 05/14/25 07:45
C-Reactive Protein 56.50 mg/L (0.0-10.00) H 05/13/25 14:04
Most recent labs reviewed.
Micro Results:
05/13/25 14:04 Blood Culture - Preliminary
Blood/Venous No Growth in 4 days- Final report to follow
05/13/25 14:04 Blood Culture - Preliminary
Blood/Venous No Growth in 4 days- Final report to follow
05/15/25 14:40 Wound Culture - Preliminary
Back No growth
Gram Stain - Preliminary
05/15/25 14:45 Tissue Culture - Final
Tissue Staph aureus MRSA
Gram Stain - Final
05/15/25 14:40 Anaerobic Culture - Preliminary
Back Culture pending. Anaerobic cultures are examined after 3
days incubation. Additional information to follow.
05/14/25 14:29 Blood Parasites Smear - Final
Blood/Venous
05/13/25 16:18 Urine Culture - Final
Urine No Significant Growth
05/13/25 14:05 Influenza Types A & B ([facility]) - Final
Nasal Swab Negative for Influenza A & B, NAAT
Negative results must be combined with clinical observations
and patient history.
Nucleic Acid Amplification test (NAAT)performed on the
[employer] NOW platform.
05/14/25 Lumbar MRI wo and w contrast:
1. ACUTE INFECTIOUS DISCITIS at L3/L4.
2. ACUTE OSTEOMYELITIS in the inferior endplate of L3 and superior endplate of L4.
3. Large 9 cm posterior soft tissue wound in the midline posterior to L3.
4. 3.4 cm subcutaneous ABSCESS posterior to the left L3 pedicle screw.
[2025-05-18 08:22] LABS: Glucose - Point of Care 126 mg/dl (70-99)
[2025-05-18] MEDS: NOVOLOG FLEXPEN-LOW RESISTANCE SC (08:30)
[2025-05-18] MEDS: FARXIGA 10 MG PO (08:30)
[2025-05-18] MEDS: VITAMIN C 500 MG PO (08:31)
[2025-05-18] MEDS: CYMBALTA DELAYED RELEASE 20 MG PO (08:31)
[2025-05-18] MEDS: VITAMIN D3 (cholecalciferol) 25 MCG PO (08:31)
[2025-05-18] MEDS: ELIQUIS 2.5 MG PO (08:31)
[2025-05-18] MEDS: MIRALAX 17 GRAMS PO (08:31)
[2025-05-18] MEDS: SENOKOT-S 2 TABLET PO (08:31)
[2025-05-18] MEDS: B COMPLEX w/VITAMIN C 1 CAPLET PO (08:31)
[2025-05-18] MEDS: VISBIOME 1 CAP PO (08:31)
[2025-05-18] MEDS: MILK OF MAGNESIA 30 ML PO (09:16)
--- NOTE | 2025-05-18 09:42 | CM ---
Addendum entered by Ericka Cardona RN 05/18/25 12:57:
Patient covered at 100% for IV abx per [facility]. They will follow/teach tomorrow in patient's home.
Plan: Discharge to home with [facility] for IV abx and PICC line management and [facility] for wound care.
Addendum entered by Ericka Cardona RN 05/18/25 11:50:
spoke with health assistant Ruma from [facility] ([phone]). They have received referral and waiting on insurance coverage analysis. ID attending, RN, and patient's spouse updated.
Original Note:
Reviewed the chart notes. PICC and cxr faxed to [facility].
[2025-05-18] MEDS: CUBICIN 16 MG IV (12:19)
[2025-05-18 12:30] LABS: Glucose - Point of Care 158 mg/dl (70-99)
[2025-05-18] MEDS: NOVOLOG FLEXPEN-LOW RESISTANCE 1 UNITS SC (12:37)
--- NOTE | 2025-05-18 13:04 | WOUNDNOTE ---
WOC RN NOTE: Patients wound vac discontinued yesterday. This clinical writer moved vac from patient room to dirty utility room on [address] and updated [employer] website.
--- NOTE | 2025-05-18 14:17 | W.DCSUMMARY ---
Discharge Summary
Discharge Data
Date of Admission: 05/13/25
Date of Discharge: 05/18/25
-
Pending Results: No
Hospital Course
Discharge diagnosis:
Acute infectious discitis at lumbar vertebrae 3/4
Acute osteomyelitis of lumbar vertebrae 3/4 with abscess
History of laminectomy of lumbar vertebrae 2/3/4/spinal fusion on 04/18/2025 complicated by postoperative wound dehiscence/surgical wound
Constipation
Acute blood loss anemia from surgery
Ankylosing spondylitis
Obstructive sleep apnea
Type 2 diabetes
Hyperlipidemia
History of deep vein thrombosis on Eliquis
Anxiety/depression
Consults: Spine surgery, plastic surgery, ID
Lumbar MRI:
1. ACUTE INFECTIOUS DISCITIS at L3/L4.
2. ACUTE OSTEOMYELITIS in the inferior endplate of L3 and superior endplate of L4.
3. Large 9 cm posterior soft tissue wound in the midline posterior to L3.
4. 3.4 cm subcutaneous ABSCESS posterior to the left L3 pedicle screw.
5. Severe cellulitis throughout the posterior subcutaneous fat.
6. Severe myositis in the right posterior paraspinal muscles.
7. Recent right L3 hemilaminectomy and bilateral L3/L4 instrumentation.
8. Moderate right convex curvature of the midlumbar spine with 1.1 cm right lateral listhesis of L3 on L4.
Procedures:
05/15/2025�lumbar wound washout, debridement, and closure with Dr. Rocha
Hospital course:
64-year-old female with a past medical history of laminectomy of L2-L4/spinal fusion on 04/18/2025 complicated by surgical site infection status post OR washout on 04/24/2025 with wound VAC, ankylosing spondylitis, obstructive sleep apnea on CPAP,
diabetes, hyperlipidemia, and DVT on Eliquis who was admitted for acute infectious discitis/osteomyelitis of L3-L4 vertebrae with abscess. Patient was seen in conjunction with spine surgery and plastic surgery. MRI confirmed discitis,
osteomyelitis with abscess. She underwent lumbar wound washout, debridement, and closure with Dr. Rocha. She was seen in conjunction with ID, and treated with IV vancomycin. Cultures grew out MRSA. ID recommends treatment with daptomycin
through 07/11/2025. She had a PICC line inserted. She has been set up for outpatient antibiotics. She has been cleared by plastic surgery for discharge. She is to be discharged with her drain. She needs to follow-up with her spine surgeon,
plastic surgery, and ID in the office. She also needs to follow-up with her PCP as well.
Disposition: Home with home care
Discharge planning: Required 41 min
Discharge Plan
-
Patient Disposition: Home with Home Care
Discharge Diagnosis/Procedures: Acute early discitis and osteomyelitis L3/L4 hardware infection
Condition: Good
Diet: Low Fat, Low Cholesterol and Diabetic, Carb Controlled
Activity: As tolerated
Activity Restrictions/Additional Instructions:
Daptomycin 800mg IV every 24 hours x 8 weeks through 07/11/25
Lumbar-local care as per Dr. Rocha's instructions.
Follow up with Dr. Rocha.
Follow up with Dr. Gentile.
Follow up with infectious disease.
Referrals:
Gurjit Lepe Jr., DO [Family Provider, Internal Medicine] - in one week
Rojas Gentile MD [Active, Orthopedics] - in three to four weeks
Brandt Rocha MD [Active, Plastic Surgery] - in less than 1 week
Maria Fernanda Tidwell MD [Active, Infectious Diseases] - in three to four weeks
Prescriptions:
New
DAPTOmycin [Cubicin] 800 MG
Syringe [Syringe-Pump] 0 ML
As Directed mls/hr IV Q24H
Ordered By: Tobias Ortega MD
Last Taken: 05/18/25 12:19 16 mls
polyethylene glycol 3350 17 gram/dose powder
17 g PO DAILY Qty: 510 0RF
Rx Instructions:
May take BID if still constipated
sennosides-docusate sodium 8.6-50 mg Tablet
2 tab PO BID Qty: 60 0RF
Continued
Eliquis 2.5 MG tablet
2.5 mg PO BID
Jardiance 10 MG tablet
10 mg PO DAILY
ascorbic acid (vitamin C) [Vitamin C] 500 MG tablet
500 mg PO DAILY
hydrocodone-acetaminophen 10-325 mg Tablet
1 tab PO BIDPRN PRN (Reason: severe pains)
cholecalciferol (vitamin D3) [Vitamin D3] 25 mcg (1,000 unit) Tablet
25 mcg PO DAILY
duloxetine 20 mg Capsule,Delayed Release(Dr/Ec)
20 mg PO BID
nystatin 100,000 unit/mL suspension
4 ml mucous membrane QIDPRN PRN (Reason: thrush)
atorvastatin 20 mg tablet
20 mg PO DAILY
vitamin B complex Tablet
1 tab PO DAILY
Mounjaro 5 mg/0.5 mL pen injector
5 mg SC WE
Visbiome 112.5 billion cell Capsule
1 cap PO DAILY
Discharge Orders:
Discharge Patient (As Directed); Ordered 05/18/25
Ordered By: Tobias Ortega
Discharge Date and Time
Discharge Date/Time: 05/18/25 15:20
Print Language: YORUBA
[2025-05-18 14:40] VITALS: BP 114/69
== END 2025-05-18 15:20 | disposition home health service (06) | DRG 552 ==
LOC: 2 NORTH 16:25
PROVIDERS: Physician Assistant; Radiology Vascular & Interventional Radiology; ADMITTING PHYSICIAN Hospitalist; ATTENDING PHYSICIAN Family Medicine; CONSULT PHYSICIAN Internal Medicine Infectious Disease; CONSULT PHYSICIAN Orthopaedic Surgery Orthopaedic Surgery of the Spine; CONSULT PHYSICIAN Surgery Plastic and Reconstructive Surgery; EMERGENCY PHYSICIAN Emergency Medicine; FAMILY PHYSICIAN Family Medicine
DX: M46.46 Discitis, unspecified, lumbar region (principal); M46.26 Osteomyelitis of vertebra, lumbar region; D62 Acute posthemorrhagic anemia; T81.41XA Infection following a procedure, superficial incisional surgical site, initial encounter; T81.31XA Disruption of external operation (surgical) wound, not elsewhere classified, initial encounter; D84.821 Immunodeficiency due to drugs; L03.312 Cellulitis of back [any part except buttock and flank]; M60.08 Infective myositis, other site; E11.69 Type 2 diabetes mellitus with other specified complication; Z98.1 Arthrodesis status; M45.9 Ankylosing spondylitis of unspecified sites in spine; G47.33 Obstructive sleep apnea (adult) (pediatric); E78.5 Hyperlipidemia, unspecified; Z86.718 Personal history of other venous thrombosis and embolism; F41.9 Anxiety disorder, unspecified; F32.A Depression, unspecified; Z88.5 Allergy status to narcotic agent; Z79.01 Long term (current) use of anticoagulants; B37.9 Candidiasis, unspecified; Z79.60 Long term (current) use of unspecified immunomodulators and immunosuppressants; E11.9 Type 2 diabetes mellitus without complications; K58.9 Irritable bowel syndrome, unspecified; Z79.84 Long term (current) use of oral hypoglycemic drugs; Z11.52 Encounter for screening for COVID-19
CPT/HCPCS: 71045; 72158; 80048; 80053; 81003; 81015; 82550; 82962; 83036; 83605; 83735; 85025; 85027; 85610; 86140; 86618; 87015; 87040; 87070; 87075; 87086; 87147; 87176; 87186; 87205; 87207; 87502; 87811; 96360; 99285; A9575; C1729; J0878

== ENCOUNTER → 2025-08-15 07:30 | Outpatient (REF) | payer BC, SELFPAY | LOC: MRI 07:30 | PROVIDERS: ATTENDING PHYSICIAN Orthopaedic Surgery Orthopaedic Surgery of the Spine; FAMILY PHYSICIAN Family Medicine | DX: M48.062 Spinal stenosis, lumbar region with neurogenic claudication (principal) | CPT/HCPCS: 72158; A9575 ==

== ENCOUNTER → 2025-08-22 13:24 | Outpatient (REF) | payer BC, SELFPAY ==
[2025-08-22 15:22] LABS: C-Reactive Protein < 5.00 mg/L (0.0-10.00)
== END ==
LOC: REG 13:24
PROVIDERS: ATTENDING PHYSICIAN Orthopaedic Surgery Orthopaedic Surgery of the Spine; FAMILY PHYSICIAN Family Medicine
DX: M48.062 Spinal stenosis, lumbar region with neurogenic claudication (principal)
CPT/HCPCS: 36415; 85652; 86140